=== PATIENT | female | born 1940 | race Caucasian/White ===

== ENCOUNTER 2016-11-23 16:18 | Inpatient (IN) | payer OTHER ==
[~2016-11-23] VITALS: Ht 157.5 cm; Wt 102.5 kg
[~2016-11-23 16:18] MED LIST: ADVIN25050 INH; ATV1HP PO; CHOL100010 PO; DICL1SOL6 TOP; DIPH25CA37 PO; IPRA1AER2 INH; LTRCR45 TOP; MELA1CAP9 PO; NRV5 PO; NZRSHM TOP; SNG10 PO; ULT50HP PO
[2016-11-23] MEDS ORDERED: METHYLPREDNISOLONE 125 MG VIAL IV STA (16:41)
[2016-11-23] MEDS ORDERED: ALBUT/IPRATROP 3MG/0.5MG NEB 3 ML VIAL INH ONE (16:45)
--- NOTE | 2016-11-23 17:09 | DIAGNOSTIC IMAGING REPORT ---
CHEST ONE VIEW PORTABLE CLINICAL HISTORY: EVALUATE RESPIRATORY DISTRESS. DYSPNEA dyspnea COMPARISON STUDY: 10/18/2014 FINDINGS: Mild stable cardiomegaly. Lungs are clear. Diaphragms smooth. Costophrenic angles are sharp. IMPRESSION: Chronic change. No acute process. Electronically signed by: Travis Weeks M.D. 11/23/2016 5:07 PM Dictated Date/Time: 11/23/2016 5:06 PM
[2016-11-23 17:12] LABS: BASO % 0.1 %; BASO ABS # 0.01 K/uL (0-0.2); COMPLETE YES; EOS % 0.9 %; HEMATOCRIT 31.4 % (37-47); IG% 0.2 %; LYMPH % 12.1 %; LYMPH ABS # 1.15 K/uL (1.2-3.4); MEAN CELL VOLUME 105.4 fL (80-100); MEAN CORPUSCULAR HEMOGLOBIN 31.5 pg (25-34); MEAN CORPUSCULAR HGB CONC 29.9 g/dl (32-36); MEAN PLATELET VOLUME 10.2 fL (7.4-10.4); MONO % 7.2 %; NEUT % 79.5 %; PLATELET COUNT 147 K/uL (130-400); RED BLOOD COUNT 2.98 M/uL (4.2-5.4); WHITE BLOOD COUNT 9.52 K/uL (4.8-10.8)
[2016-11-23 17:13] VITALS: PULSE 91; O2SAT 96
[2016-11-23 17:20] LABS: POINT OF CARE TROPONIN I 0.02 ng/ml (0-0.045)
[2016-11-23 17:33] LABS: VEN BLD GAS O2 SATURATION 66.8 %
[2016-11-23 17:52] LABS: ALT/SGPT 12 U/L (12-78); BLOOD UREA NITROGEN 83 mg/dl (7-18); BUN/CREATININE RATIO 27.6 (10-20); CALCIUM 9.3 mg/dl (8.5-10.1); CARBON DIOXIDE 40 mmol/L (21-32); CHLORIDE 92 mmol/L (98-107); GLUCOSE 115 mg/dl (70-99); POTASSIUM 4.4 mmol/L (3.5-5.1); SODIUM 137 mmol/L (136-145)
[2016-11-23 17:57] LABS: ALKALINE PHOSPHATASE 128 U/L (45-117); AST/SGOT 10 U/L (15-37)
[2016-11-23] MEDS ORDERED: IPRASOL4 INH (17:59)
[2016-11-23] MEDS ORDERED: TRAZ50TA35 PO (17:59)
[2016-11-23] MEDS ORDERED: CRG625 PO (17:59)
[2016-11-23] MEDS ORDERED: METO2.5T PO (17:59)
[2016-11-23] MEDS ORDERED: FRS/40 PO (17:59)
[2016-11-23] MEDS ORDERED: OXGN (17:59)
[2016-11-23] MEDS ORDERED: MENTOIN TOP (18:21)
[2016-11-23 19:08] VITALS: Ht 157.5 cm; Wt 102.5 kg
[2016-11-23] MEDS ORDERED: SODIUM CHLORIDE 0.9% 1000ML 1,000 ML IV SCH (20:05)
[2016-11-23] MEDS ORDERED: ONDANSETRON INJ 2 MG/ML 2 ML VIAL IV PRN (20:15)
[2016-11-23 20:53] LABS: PROTHROMBIN TIME (PATIENT) 10.6 SECONDS (9.0-12.0)
--- NOTE | 2016-11-23 21:44 | History and Physical ---
History & Physical Date & Time of Service: Nov 23, 2016 at 21:24 Chief Complaint: Shortness of Breath Primary Care Physician: Christine Ward M.D. History of Present Illness 76 year old female who presents to the ER by referral of her PCP for shortness of breath and hypoxia. Patient does not provide much history. She recently has had increasing shortness of breath. Today she was at her PCP's office who found her oxygen levels to be 71% on her chronic 3L. She was then referred to the ER for further evaluation. Patient denies cough or sputum production. No fever or chills. She denies chest pain or palpitations. No lightheadedness, dizziness, diaphoresis, or syncopal events. No abdominal pain, nausea, vomiting, or diarrhea. She denies urinary symptoms. In the ER, patient was 64% on 3L which improved after nebulizer, solumedrol, and increasing oxygen to 6L. She refused ABG but VBG showed pH 7.24 and CO2 100. She is also refusing BiPap. Throughout my exam, patient is alert and awake and persistently asking for food. Past Medical/Surgical History Medical Problems: (1) Anemia due to chronic kidney disease Status: Chronic (2) Aortic stenosis Status: Chronic (3) CKD (chronic kidney disease), stage IV Status: Chronic (4) COPD (chronic obstructive pulmonary disease) Status: Chronic (5) Depression with anxiety Status: Chronic (6) Diastolic CHF Status: Chronic (7) Dyslipidemia Status: Chronic (8) GERD (gastroesophageal reflux disease) Status: Chronic (9) HTN (hypertension) Status: Chronic (10) Hypothyroidism Status: Chronic (11) Osteoarthritis Status: Chronic (12) Respiratory failure with hypoxia Status: Chronic Surgical Problems: (1) History of appendectomy Status: Chronic (2) History of hysterectomy Status: Chronic (3) Hx of cholecystectomy Status: Chronic (4) Hx of tonsillectomy Status: Chronic (5) S/P gastric bypass Status: Chronic Family History FH: breast cancer MOTHER Social History Smoking Status: Former Smoker Alcohol Use: none Marital Status: Immunizations History of Influenza Vaccine: Yes Influenza Vaccine Date: May 16, 2015 History of Pneumococcal: Yes Pneumococcal Date: Apr 15, 2016 Multi-Drug Resistant Organisms History of MDRO: No Allergies Coded Allergies: Ampicillin (Unverified Allergy, Unknown, ITCHING, 11/23/16) Latex1 -Allergic Contact Dermititis (Unverified Allergy, Unknown, ITCHING , 11/23/16) Home Medications Scheduled Amlodipine Besylate (Amlodipine Besylate), 10 MG PO QAM Budesonide/Formoterol Fumarate (Symbicort 80-4.5 Mcg/Act), 2 PUFFS INH BID Cholecalciferol (Vitamin D3), 5,000 UNIT PO QAM Citalopram Hydrobromide (Celexa), 20 MG PO DAILY Cyanocobalamin (Vitamin B12), 1,000 MCG PO DAILY Ferrous Sulfate (Iron), 325 MG PO DAILY Furosemide (Furosemide), 40 MG PO QAM Hydralazine Hcl (Apresoline), 25 MG PO BID Isosorbide Mononitrate (Isosorbide Mononitrate ER), 30 MG PO DAILY Levofloxacin (Levofloxacin), 250 MG PO DAILY@11 Multivitamin (Multivitamin), 1 TAB PO DAILY Omeprazole (Prilosec), 20 MG PO DAILY Oxygen (Oxygen), 3 LITERS NA CONTINOUS Prednisone (Prednisone), 10 MG PO UD Trazodone Hcl (Trazodone), 50 MG PO HS Scheduled PRN Ipratropium-Albuterol (Duoneb), 1 TREATMENT INH Q4H PRN for SOB/Wheezing Menthol-Zinc Oxide (Calmoseptine), 1 APPLN TOP DAILY PRN for PRN Review of Systems 10 point review of systems was completed with the pertinent positives and negatives noted per the HPI Physical Exam Vital Signs Date Time Temp Pulse Resp B/P Pulse Ox O2 Delivery O2 Flow Rate FiO2 11/23/16 19:46 42 18 147/47 100 Nasal Cannula 6.0 11/23/16 19:08 Nasal Cannula 3.0 11/23/16 18:30 41 24 168/49 100 Nasal Cannula 6.0 11/23/16 17:43 38 23 194/72 100 Nasal Cannula 6.0 11/23/16 17:13 91 18 96 Nasal Cannula 3.0 11/23/16 16:51 100 Nasal Cannula 6.0 11/23/16 16:51 100 Nasal Cannula 6.0 11/23/16 16:50 24 100 Nasal Cannula 6.0 11/23/16 16:45 41 11/23/16 16:28 Nasal Cannula 6.0 11/23/16 16:28 37.1 44 24 64 Nasal Cannula 3.0 General Appearance: no apparent distress Head: normocephalic Eyes: normal inspection ENT: hearing grossly normal Neck: supple, no JVD Respiratory/Chest: no respiratory distress, + decreased breath sounds (poor air movement BL), + crackles (BL bases) Cardiovascular: + bradycardia (HR in the 40s), + pertinent finding (trace edema BLLE) Abdomen/GI: normal bowel sounds, non tender, soft Extremities/Musculoskelatal: normal inspection, no calf tenderness Neurologic/Psych: no motor/sensory deficits, alert, normal mood/affect, oriented x 3 Skin: normal color, warm/dry Diagnostics Laboratory Results Results Past 24 Hours Test 11/23/16 16:50 11/23/16 16:58 11/23/16 16:59 11/23/16 17:16 Range/Units White Blood Count 9.52 4.8-10.8 K/uL Red Blood Count 2.98 4.2-5.4 M/uL Hemoglobin 9.4 12.0-16.0 g/dL Hematocrit 31.4 37-47 % Mean Corpuscular Volume 105.4 80-100 fL Mean Corpuscular Hemoglobin 31.5 25-34 pg Mean Corpuscular Hemoglobin Concent 29.9 32-36 g/dl Platelet Count 147 130-400 K/uL Mean Platelet Volume 10.2 7.4-10.4 fL Neutrophils (%) (Auto) 79.5 % Lymphocytes (%) (Auto) 12.1 % Monocytes (%) (Auto) 7.2 % Eosinophils (%) (Auto) 0.9 % Basophils (%) (Auto) 0.1 % Neutrophils # (Auto) 7.56 1.4-6.5 K/uL Lymphocytes # (Auto) 1.15 1.2-3.4 K/uL Monocytes # (Auto) 0.69 0.11-0.59 K/uL Eosinophils # (Auto) 0.09 0-0.5 K/uL Basophils # (Auto) 0.01 0-0.2 K/uL RDW Standard Deviation 49.1 36.4-46.3 fL RDW Coefficient of Variation 12.8 11.5-14.5 % Immature Granulocyte % (Auto) 0.2 % Immature Granulocyte # (Auto) 0.02 0.00-0.02 K/uL Prothrombin Time 10.6 9.0-12.0 SECONDS Prothromb Time International Ratio 1.0 0.9-1.1 Activated Partial Thromboplast Time 26.5 21.0-31.0 SECONDS Partial Thromboplastin Ratio 1.0 Sodium Level 137 136-145 mmol/L Potassium Level 4.4 3.5-5.1 mmol/L Chloride Level 92 98-107 mmol/L Carbon Dioxide Level 40 21-32 mmol/L Anion Gap 5.0 3-11 mmol/L Blood Urea Nitrogen 83 7-18 mg/dl Creatinine 3.00 0.60-1.20 mg/dl Est Creatinine Clear Calc Drug Dose 19.4 ml/min Estimated GFR () 17.0 Estimated GFR (Non- 14.7 BUN/Creatinine Ratio 27.6 10-20 Random Glucose 115 70-99 mg/dl Calcium Level 9.3 8.5-10.1 mg/dl Total Bilirubin 0.3 0.2-1 mg/dl Aspartate Amino Transf (AST/SGOT) 10 15-37 U/L Alanine Aminotransferase (ALT/SGPT) 12 12-78 U/L Alkaline Phosphatase 128 45-117 U/L Total Creatine Kinase 23 26-192 U/L Creatine Kinase MB < 0.5 0.5-3.6 ng/ml Creatine Kinase MB Ratio 0-3.0 Total Protein 7.5 6.4-8.2 gm/dl Albumin 3.7 3.4-5.0 gm/dl Globulin 3.8 2.5-4.0 gm/dl Albumin/Globulin Ratio 1.0 0.9-2 Bedside Lactic Acid Venous 0.71 0.90-1.70 mmol/L Bedside Troponin I 0.020 0-0.045 ng/ml PO-Aih-E-Type Natriuretic Peptide 2594 0-900 pg/ml Venous Blood pH 7.24 7.36-7.41 Venous Blood Partial Pressure CO2 100 38.0-50.0 mmHg Venous Blood Partial Pressure O2 38 mmHg Venous Blood HCO3 42 mmol/L Venous Blood Oxygen Saturation 66.8 % Venous Blood Base Excess 12.0 mmol/L Microbiology Results 11/23/16 Blood Culture, Received Pending 11/23/16 Blood Culture, Received Pending 11/23/16 Urine Culture, Received Pending Diagnostic Radiology CXR IMPRESSION: Chronic change. No acute process. Impression Assessment and Plan ACUTE ON CHRONIC HYPERCAPNIC, HYPOXIC RESPIRATORY FAILURE DUE TO COPD EXACERBATION - admit to tele - patient does not provide much history but is presenting with increasing shortness of breath and found to be hypoxic at her PCPs office - in the ER, patient 64% on chronic 3L; improved after IV solumedrol, neb treatment, and increasing O2 to 6L - VBG showed CO2 100, pH 7.24 - patient refusing ABG and BiPap - explained to patient that her pulmonary status could worsen without these treatments and she reports she understands and is adamant about refusing BiPap and ABG - continue with IV steroids, around the clock nebs, and empiric doxycycline - pulmonary consult, input appreciated - could consider PE if patient does not improve with above treatments - currently no tachycardia or chest pain LUIS ON CKD STAGE IV - likely prerenal - baseline creat ~ 2.2 - up to 3.0 today - will give gentle IVF, hold diuretics - nephro consult, input appreciated BRADYCARDIA - outpatient records show baseline HR 40s-60s - monitor in tele - hold beta ananya HTN - BP controlled, continue isosorbide and amlodipine - holding beta ananya due to bradycardia DIASTOLIC CHF, AORTIC STENOSIS - may be on the dry side with LUIS - holing diuretics - echo 09/2015 - moderate , mild MR and TR DVT PROPHYLAXIS - SQ Heparin CODE STATUS - Patient is a DNR as per my discussion with her and her who are the bedside. DISPO - In my clinical judgment this beneficiary meets acute admission criteria, established by [facility], that includes being hospitalized through two midnights. ATTENDING NOTE pt seen and examined , in agreement with H&P by Shante HERNANDEZ 76 yo f with base line advanced COPD on 3 L home 02 presents with worsening of SOB /SERNA COPD exacerbation IV Solu Medrol , Neb tx Pt is refusing Bipap Pulmonology eval requested Yoli Castillo MD Advanced Directives Existing Living Will: Yes Existing Power of Hooker Operator: Yes VTE Prophylaxis VTE Risk Assessment Done? Y/N: Yes Risk Level: Moderate
[2016-11-23 22:37] VITALS: BP 197/69; PULSE 50; TEMP 37.1; O2SAT 98
[2016-11-23] MEDS: ALBUT/IPRATROP 3MG/0.5MG NEB 3 ML VIAL INH SCH (22:39)
[2016-11-23] MEDS: DOXYCYCLINE IV 100 MG in DEXTROSE 5% 100ML 100 ML IV SCH (23:23)
[2016-11-23] MEDS: METHYLPREDNISOLONE IV 40 MG in SYRINGE 0 ML IV SCH (23:23)
--- NOTE | 2016-11-23 23:30 | EMERGENCY ROOM VISIT NOTE ---
History Report prepared by Marvin: Boyd Price Under the Supervision of: Dr. Elijah Arredondo M.D. First contact with patient: 16:30 Chief Complaint: SHORTNESS OF BREATH Stated Complaint: SOB History of Present Illness The patient is a 76 year old female who presents to the Emergency Room with complaints of worsening shortness of breath beginning a few weeks prior to arrival. As per EMS, the patient was at her nephrology appointment for her state 4 kidney disease, where the patient had an oxygen stat of 71% on 3L. The patient states she wears 3 L of oxygen at all times, and she was not feeling any worse today. As per the doctor's note from her appointment earlier today, the patient has become more short of breath over the last few weeks. Acute on chronic respiratory failure with hypercapnia was a concern according to the note , and the patient's heart rate was in the 40s. It is noted the patient has COPD and hypertension. As per , the patient has been "slowing down" over the past few weeks. Pt denies LOC, headache, fevers, chills, diaphoresis, visual changes, neck pain, chest pain, nausea, vomiting, abdominal pain, back pain, melena, hematochezia, urinary symptoms, numbness, weakness, swelling in the legs , lymphadenopathy, rash, or other complaints. The history is limited secondary to the patient's mild confusion. Source of History: patient History Limited By: other (mild confusion) Onset: few weeks CLINICAL RECRUITER Position: other (global) Quality: other (SOB) Timing: worsening Associated Symptoms: + SOB Review of Systems See HPI for pertinent positives and negatives. A total of ten systems were reviewed and were otherwise negative. However, it is somewhat limited secondary to the patient's apparent mild confusion. Past Medical & Surgical Medical Problems: (1) Anemia due to chronic kidney disease (2) Aortic stenosis (3) CKD (chronic kidney disease), stage IV (4) COPD (chronic obstructive pulmonary disease) (5) Depression with anxiety (6) Diastolic CHF (7) Dyslipidemia (8) GERD (gastroesophageal reflux disease) (9) HTN (hypertension) (10) Hypothyroidism (11) Osteoarthritis (12) Respiratory failure with hypoxia Surgical Problems: (1) History of appendectomy (2) History of hysterectomy (3) Hx of cholecystectomy (4) Hx of tonsillectomy (5) S/P gastric bypass Family History No pertinent family history Social History Smoking Status: Former Smoker Alcohol Use: none Drug Use: none Marital Status: Housing Status: lives with family Occupation Status: retired Current/Historical Medications Scheduled Amlodipine Besylate (Amlodipine Besylate), 10 MG PO QAM Carvedilol (Carvedilol), 6.25 MG PO BIDM Cholecalciferol (Vitamin D3), 5,000 UNIT PO QAM Citalopram Hydrobromide (Celexa), 20 MG PO DAILY Cyanocobalamin (Vitamin B12), 1,000 MCG PO DAILY Ferrous Sulfate (Iron), 325 MG PO DAILY Furosemide (Lasix), 40 MG PO BID Isosorbide Mononitrate (Isosorbide Mononitrate ER), 30 MG PO DAILY Metolazone (Zaroxolyn), 2.5 MG PO DAILY Montelukast Sod (Montelukast Sodium), 10 MG PO DAILY Multivitamin (Multivitamin), 1 TAB PO DAILY Omeprazole (Prilosec), 20 MG PO DAILY Oxygen (Oxygen), 3 LITERS NA PRN Trazodone Hcl (Trazodone), 50 MG PO HS Scheduled PRN Ipratropium-Albuterol (Duoneb), 1 TREATMENT INH Q4H PRN for SOB/Wheezing Menthol-Zinc Oxide (Calmoseptine), 1 APPLN TOP DAILY PRN for PRN Allergies Coded Allergies: Ampicillin (Unverified Allergy, Unknown, ITCHING, 11/23/16) Latex1 -Allergic Contact Dermititis (Unverified Allergy, Unknown, ITCHING , 11/23/16) Physical Exam Vital Signs Date Time Temp Pulse Resp B/P Pulse Ox O2 Delivery O2 Flow Rate FiO2 11/23/16 20:00 164/62 11/23/16 19:48 41 17 98 11/23/16 19:46 42 18 147/47 100 Nasal Cannula 6.0 11/23/16 19:41 147/47 11/23/16 19:18 44 18 98 11/23/16 19:08 Nasal Cannula 3.0 11/23/16 18:48 45 25 11/23/16 18:30 168/49 11/23/16 18:30 41 24 168/49 100 Nasal Cannula 6.0 11/23/16 18:18 39 18 11/23/16 18:01 161/61 11/23/16 17:48 43 28 100 11/23/16 17:43 194/72 11/23/16 17:43 38 23 194/72 100 Nasal Cannula 6.0 11/23/16 17:18 41 18 100 11/23/16 17:13 91 18 96 Nasal Cannula 3.0 11/23/16 16:51 100 Nasal Cannula 6.0 11/23/16 16:51 100 Nasal Cannula 6.0 11/23/16 16:50 24 100 Nasal Cannula 6.0 11/23/16 16:48 44 24 100 11/23/16 16:45 41 11/23/16 16:30 177/69 11/23/16 16:28 Nasal Cannula 6.0 11/23/16 16:28 37.1 44 24 64 Nasal Cannula 3.0 Physical Exam GENERAL: Awake, mildly confused, mildly dyspneic-appearing HENT: Normocephalic, atraumatic. Oropharynx unremarkable. EYES: Normal conjunctiva. Sclera non-icteric. NECK: Supple. No nuchal rigidity. FROM. No JVD. RESPIRATORY: Mildly tachypneic. Decreased breath sounds bilaterally. Mildly dyspneic. CARDIAC: Regular rate, normal rhythm. Extremities warm and well perfused. Pulses equal. ABDOMEN: Soft, non-distended. No tenderness to palpation. No rebound or guarding. No masses. RECTAL: Deferred. MUSCULOSKELETAL: Chest examination reveals no tenderness. The back is symmetrical on inspection without obvious abnormality. There is no CVA tenderness to palpation. No joint edema. LOWER EXTREMITIES: Calves are equal size bilaterally and non-tender. No edema. No discoloration. NEURO: Mildly confused. No sensory or motor deficits noted. SKIN: No rash or jaundice noted. Medical Decision & Procedures ER Provider Diagnostic Interpretation: X-ray: Per my interpretation, radiologist review. CHEST ONE VIEW PORTABLE CLINICAL HISTORY: EVALUATE RESPIRATORY DISTRESS. DYSPNEA dyspnea COMPARISON STUDY: 10/18/2014 FINDINGS: Mild stable cardiomegaly. Lungs are clear. Diaphragms smooth. Costophrenic angles are sharp. IMPRESSION: Chronic change. No acute process. Electronically signed by: Travis Weeks M.D. 11/23/2016 5:07 PM Laboratory Results 11/23/16 16:50 Red Blood Count 2.98, Mean Corpuscular Volume 105.4, Mean Corpuscular Hemoglobin 31.5, Mean Corpuscular Hemoglobin Concent 29.9, Mean Platelet Volume 10.2, Neutrophils (%) (Auto) 79.5, Lymphocytes (%) (Auto) 12.1, Monocytes (%) ( Auto) 7.2, Eosinophils (%) (Auto) 0.9, Basophils (%) (Auto) 0.1, Neutrophils # ( Auto) 7.56, Lymphocytes # (Auto) 1.15, Monocytes # (Auto) 0.69, Eosinophils # ( Auto) 0.09, Basophils # (Auto) 0.01 11/23/16 16:50 Test 11/23/16 16:50 11/23/16 16:58 11/23/16 16:59 11/23/16 17:16 White Blood Count 9.52 K/uL (4.8-10.8) Red Blood Count 2.98 M/uL (4.2-5.4) Hemoglobin 9.4 g/dL (12.0-16.0) Hematocrit 31.4 % (37-47) Mean Corpuscular Volume 105.4 fL (80-100) Mean Corpuscular Hemoglobin 31.5 pg (25-34) Mean Corpuscular Hemoglobin Concent 29.9 g/dl (32-36) Platelet Count 147 K/uL (130-400) Mean Platelet Volume 10.2 fL (7.4-10.4) Neutrophils (%) (Auto) 79.5 % Lymphocytes (%) (Auto) 12.1 % Monocytes (%) (Auto) 7.2 % Eosinophils (%) (Auto) 0.9 % Basophils (%) (Auto) 0.1 % Neutrophils # (Auto) 7.56 K/uL (1.4-6.5) Lymphocytes # (Auto) 1.15 K/uL (1.2-3.4) Monocytes # (Auto) 0.69 K/uL (0.11-0.59) Eosinophils # (Auto) 0.09 K/uL (0-0.5) Basophils # (Auto) 0.01 K/uL (0-0.2) RDW Standard Deviation 49.1 fL (36.4-46.3) RDW Coefficient of Variation 12.8 % (11.5-14.5) Immature Granulocyte % (Auto) 0.2 % Immature Granulocyte # (Auto) 0.02 K/uL (0.00-0.02) Prothrombin Time 10.6 SECONDS (9.0-12.0) Prothromb Time International Ratio 1.0 (0.9-1.1) Activated Partial Thromboplast Time 26.5 SECONDS (21.0-31.0) Partial Thromboplastin Ratio 1.0 Anion Gap 5.0 mmol/L (3-11) Est Creatinine Clear Calc Drug Dose 19.4 ml/min Estimated GFR () 17.0 Estimated GFR (Non- 14.7 BUN/Creatinine Ratio 27.6 (10-20) Calcium Level 9.3 mg/dl (8.5-10.1) Total Bilirubin 0.3 mg/dl (0.2-1) Aspartate Amino Transf (AST/SGOT) 10 U/L (15-37) Alanine Aminotransferase (ALT/SGPT) 12 U/L (12-78) Alkaline Phosphatase 128 U/L (45-117) Total Creatine Kinase 23 U/L (26-192) Creatine Kinase MB < 0.5 ng/ml (0.5-3.6) Creatine Kinase MB Ratio (0-3.0) Total Protein 7.5 gm/dl (6.4-8.2) Albumin 3.7 gm/dl (3.4-5.0) Globulin 3.8 gm/dl (2.5-4.0) Albumin/Globulin Ratio 1.0 (0.9-2) Bedside Lactic Acid Venous 0.71 mmol/L (0.90-1.70) Bedside Troponin I 0.020 ng/ml (0-0.045) DL-Obi-P-Type Natriuretic Peptide 2594 pg/ml (0-900) Venous Blood pH 7.24 (7.36-7.41) Venous Blood Partial Pressure CO2 100 mmHg (38.0-50.0) Venous Blood Partial Pressure O2 38 mmHg Venous Blood HCO3 42 mmol/L Venous Blood Oxygen Saturation 66.8 % Venous Blood Base Excess 12.0 mmol/L Laboratory results reviewed by me Medications Administered Medications (Trade) Dose Ordered Sig/Pieter Route Start Time Stop Time Status Last Admin Dose Admin Albuterol/ Ipratropium (Duoneb) 12 ml ONE ONCE INH 11/23/16 16:45 11/23/16 16:46 DC 11/23/16 17:13 12 ML Methylprednisolone Sodium Succinate 125 mg 125 mg NOW STAT IV 11/23/16 16:41 11/23/16 16:44 DC 11/23/16 16:41 125 MG Sodium Chloride (Nss 1000ml) 1,000 ml @ 80 mls/hr [id number] IV 11/23/16 20:05 12/23/16 20:04 11/23/16 23:22 80 MLS/HR ECG Indication: SOB/dyspnea Rate (beats per minute): 42 Rhythm: sinus bradycardia Findings: no acute ischemic change, no ectopy ED Course 163: The patient was evaluated in room B11A. A complete history and physical exam was performed. 1640: Ordered Solu-Medrol IV 125 mg IV. 1644: Ordered Duoneb 12 ml INH. 1818: Reevaluated the patient at this time and the [facility] service was paged for admission. 1914: I spoke to DAVID Vidal ([facility]) about the patient's case, and she will follow the patient for further evaluation. Medical Decision Triage Nursing notes reviewed. The patient's presentation and history were concerning for shortness of breath. Etiologies such as pneumonia, COPD, reactive airway disease, CHF, cardiac ischemia, pulmonary embolism, pneumothorax, musculoskeletal, infections, gastrointestinal, as well as others were entertained. The patient was evaluated. She was having increased work of breathing. X-ray, blood work, and urinalysis were performed. ECG did not reveal any acute findings. Chest x-ray did not reveal any evidence of pneumonia or pneumothorax. The patient had a mild anemia on CBC. Her chemistry panel revealed a creatinine of 3. BNP was elevated over 2500. Lactate was negative as well as troponin. A VBG did reveal significant elevation of her CO2 at 100. The patient did refuse ABG. Due to the increased work of breathing and the hypercarbia the patient was started on BiPAP. I did inform the patient and . Consultation was made with internal medicine. The patient was evaluated in the Emergency Room for further treatment. The chart was completed utilizing [employer] voice recognition software. Grammatical errors, random word insertions, pronoun errors, and incomplete sentences are an occasional consequence of this system due to software limitations, ambient noise, and hardware issues. Any formal questions or concerns about the content, text, or information contained within the body of this dictation should be directly addressed to the physician for clarification. Consults Time Called: 1909 Consulting Physician: DAVID Vidal ([facility]) Returned Call: 1914 I spoke to DAVID Vidal ([facility]) about the patient's case, and she will follow the patient for further evaluation. Impression Primary Impression: Acute respiratory failure with hypoxia Scribe Attestation The scribe's documentation has been prepared under my direction and personally reviewed by me in its entirety. I confirm that the note above accurately reflects all work, treatment, procedures, and medical decision making performed by me. Departure Information Dispostion Being Evaluated By Hospitalist (DAVID Vidal ([facility])) Referrals No Doctor, Assigned (PCP)
[2016-11-23] MEDS: MONTELUKAST SOD 10 MG TAB PO SCH (23:33)
[2016-11-23] MEDS: HEPARIN SOD 5000 UNIT/0.5 ML CARP SQ SCH (23:35)
[2016-11-23 23:59] VITALS: O2SAT 98
[2016-11-24] VITALS (15 sets, daily range): BP systolic 148–180; BP diastolic 51–66; PULSE 46–72; TEMP 36.7–37.3; O2SAT 95–98
[2016-11-24] MEDS: ACETAMINOPHEN 325 MG TAB PO PRN ×2 (01:32→23:52)
[2016-11-24 01:51] LABS: URINE APPEARANCE CLEAR (CLEAR); URINE BILIRUBIN NEG (NEG); URINE COLOR YELLOW; URINE EPITHELIAL CELL AUTO 20-30 /lpf (0-5); URINE NITRITE POS (NEG); URINE SPECIFIC GRAVITY 1.012 (1.000-1.030); UROBILINOGEN NEG (NEG)
[2016-11-24 01:54] LABS: MANUAL MICROSCOPIC REQUIRED? NO; REVIEW REQ? NO
[2016-11-24] MEDS: ALBUT/IPRATROP 3MG/0.5MG NEB 3 ML VIAL INH SCH ×6 (02:02→19:18)
[2016-11-24] MEDS: HEPARIN SOD 5000 UNIT/0.5 ML CARP SQ SCH ×3 (05:56→21:30)
[2016-11-24] MEDS: METHYLPREDNISOLONE IV 40 MG in SYRINGE 0 ML IV SCH ×3 (06:11→23:54)
[2016-11-24 06:20] LABS: ESTIMATED AVERAGE GLUCOSE 114 mg/dl; HA1C FLAG Normal (Normal)
[2016-11-24 06:49] LABS: MEAN CELL VOLUME 102.4 fL (80-100); MEAN CORPUSCULAR HEMOGLOBIN 31.4 pg (25-34); MEAN CORPUSCULAR HGB CONC 30.7 g/dl (32-36); MEAN PLATELET VOLUME 9.5 fL (7.4-10.4); PLATELET COUNT 123 K/uL (130-400); RED BLOOD COUNT 2.93 M/uL (4.2-5.4); WHITE BLOOD COUNT 5.15 K/uL (4.8-10.8)
[2016-11-24 06:53] LABS: ARTERIAL BLD GAS O2 SATURATION 92.5 % (90-95); ARTERIAL BLOOD GAS BASE EXCESS 10.7 mEq/L (-9-1.8); ARTERIAL BLOOD GAS HCO3 39 mmol/L (19-24); ARTERIAL BLOOD GAS PO2 80 mm/Hg (80-95); ARTERIAL BLOOD GAS pH 7.31 (7.35-7.45)
[2016-11-24 07:07] LABS: BUN/CREATININE RATIO 30.5 (10-20); CALCIUM 9.1 mg/dl (8.5-10.1); POTASSIUM 4.3 mmol/L (3.5-5.1)
--- NOTE | 2016-11-24 07:48 | PULMONARY CONSULTATION ---
DATE OF CONSULTATION: 11/24/2016 HISTORY OF PRESENT ILLNESS: The patient is a 76-year-old female with known respiratory failure with profound hypercapnia and end-stage chronic obstructive lung disease. She is followed by Dr. Christine Ward from [place] and was admitted to the hospital through the Emergency Room with respiratory failure. DAVID Vidal has asked me to evaluate the patient from a pulmonary standpoint. The patient is comfortable at the present time and has refused BiPAP throughout the night. Nurses and respiratory therapist have spoken with her and she has refused. She apparently presented to the Emergency Room after having a nephrology appointment for a stage IV kidney disease. She was noted to have an oxygen saturation of 71% on 3 liters. She states she has had a cough, which was productive of clear sputum and mild shortness of breath with exertion, does not really do very much at home. She mostly sits at home. She occasional walk with a walker, but it is very minimal. She has had some mild confusion as well and this is consistent with her last admission when she was evaluated by Dr. Cho with profound hypercapnia. She was initially seen by Dr. Elijah Arredondo in the Emergency Room and was found to be hypercapnic, oxygen saturation 64% on 3 liters. On 6 liters, it was 100%. Blood pressure was 177/69, respiratory rate was 24, initially went up to 28 at 1748 hours yesterday. Chest film showed some chronic changes with hyperinflation and mild cardiomegaly. Venous blood gas revealed a pCO2 of 100 with a pH of 7.24 suggesting acute on chronic respiratory failure with profound hypercapnia and partially compensated respiratory acidosis. EKG showed sinus bradycardia. She was given IV Solu-Medrol, DuoNeb treatment and placed on BiPAP, but she refused. Presently, the patient is comfortable. She denies any exposures, not had any aspiration, is very limited at home with her activity, does walk with a walker. PAST MEDICAL HISTORY: Well outlined and includes aortic stenosis; chronic kidney disease, stage IV; end-stage COPD with chronic hypercapnia; depression; obesity; diastolic heart failure; GERD, which is under good control. Hypertension is under good control as well. She has a history of osteoarthritis and hypothyroidism. PAST SURGICAL HISTORY: Cholecystectomy for chronic cholelithiasis. Hysterectomy for dysfunctional uterine bleeding, appendectomy, tonsillectomy and she has had some gastric bypass surgery in the past. FAMILY HISTORY: Unknown. According to records, there is a family history of breast cancer from her mother's side. When I reviewed her other records, she had been evaluated by Dr. Charlton in October of 2014. Nothing else is noted in that record either. SOCIAL HISTORY: She has about a [id number] history of cigarette smoking. She states she quit about 10 years ago. She denies any alcohol use. 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 ALLERGIES: AMPICILLIN AND LATEX. MEDICATIONS: She states she does use her inhalers at home and is on oxygen at 2-3 liters per minute, could not really tell me the inhalers that she was using. Again, she has refused BiPAP. PHYSICAL EXAMINATION: GENERAL: Blood pressure 174/58, respiratory rate is 20, pulse is 50 and regular, oxygen saturation 97% on 2 liters and she is afebrile. Her weight is 102 kilograms. During her last hospitalization here several years ago on 10/2014, she was 120 kilograms. So, she has had about a 40-pound weight loss since that time. HEENT: Reveals no facial asymmetry. There is no evidence of upper airway obstruction. She has a large tongue a small posterior pharynx. No adenopathy is noted. There is no neck vein distention or HJR. Carotid upstroke was good. No bruits auscultated. I could not palpate the thyroid. She does have truncal obesity. HEART: Regular rate and rhythm, 2/6 harsh mid-to-late systolic murmur, heard at the apex, radiating underneath the right clavicle. No diastolic murmurs or gallops are auscultated. LUNGS: Reveal decreased breath sounds bilaterally. Forced expiratory maneuver are about 4 seconds, but she stopped exhalation. I think it probably is more prolonged than that. No fremitus is noted. There is no dullness to percussion. No wheezing was noted. ABDOMEN: Soft and obese, nontender. Liver and spleen are normal. Femoral pulses are normal. EXTREMITIES: She has no cyanosis, clubbing or edema. Chest x-ray revealed cardiomegaly. LABORATORY DATA: Venous blood gas revealed pH 7.24, pCO2 of 100, pO2 of 38, oxygen saturation of 67%. CO2 is 40 on the electrolytes, BUN is 83, creatinine 3, alkaline phosphatase is elevated at 128. BNP is elevated at 2594. Urinalysis revealed 10-30 inflammatory cells with +2 bacteria. Coagulation profile was unremarkable. ASSESSMENT AND PLAN: 1. Respiratory failure. This is acute on chronic respiratory failure, most certainly related to chronic obstructive lung disease. I did not detect any muscle weakness on her exam today. 2. Chronic obstructive pulmonary disease with exacerbation. 3. Stage IV chronic kidney disease. 4. Aortic stenosis. RECOMMENDATIONS: 1. At this point, I had a long talk with the patient as well and she is refusing BiPAP, stating that she just does not want to wear it, but no other reason. 2. Continue on the methylprednisolone I think 40 mg IV q. 8 hours certainly is enough for her with good glucose control. 3. Continue on good DVT prophylaxis with heparin and SCDs. 4. At this point, I think the Singulair could be discontinued. 5. I would add on DuoNeb 4 times a day and q. 4 hours p.r.n. and a long-acting bronchodilator such as Symbicort 160/4.5 two puffs b.i.d. We will need to follow her CO2 on the electrolytes as well. Nephrology evaluation with continued followup with abnormal BUN and creatinine will be helpful. Also, suggest rechecking an echocardiogram if one has not been done in the last several years. Thanks for asking me to evaluate Ms. Hill and I will be glad to follow along with you during her hospital stay. It should be noted that she did have few inflammatory cells in the urine. We will see what the culture looks like on doxycycline.
[2016-11-24 08:08] LABS: ALLEN TEST POS (POS); O2 ADMINISTRATION 2L
[2016-11-24] MEDS: BUDESONIDE/FORMOTEROL FUMARATE 80/4.5 60 PUFFS/INHALER INH SCH ×2 (08:33→20:45)
[2016-11-24] MEDS: CITALOPRAM 20 MG TAB PO SCH (08:33)
[2016-11-24] MEDS: ISOSORBIDE MONONITRATE 30 MG TABCR PO SCH (08:34)
[2016-11-24] MEDS: PANTOprazole SOD 40 MG TAB PO SCH (08:34)
[2016-11-24] MEDS: MULTIVITAMIN TAB PO SCH (08:34)
[2016-11-24] MEDS: FERROUS SULFATE 325 MG TAB PO SCH (08:34)
[2016-11-24] MEDS: AMLODIPINE BESYLATE 5 MG TAB PO SCH (08:34)
[2016-11-24] MEDS: CYANOCOBALAMIN 500 MCG TAB (VIT B-12) PO SCH (08:35)
[2016-11-24] MEDS: CHOLECALCIFEROL 1000 INTER.UNIT TAB PO SCH (08:35)
[2016-11-24] MEDS: DOXYCYCLINE IV 100 MG in DEXTROSE 5% 100ML 100 ML IV SCH ×2 (10:46→23:57)
--- NOTE | 2016-11-24 17:56 | Nephrology Consultation ---
Nephrology Consultation Date of Consultation: Nov 24, 2016. Attending Physician: Dr Reis Requesting Physician: Dr Reis Reason for Consultation: Advanced renal failure History of Present Illness 76 year old female sent from PCP office for management of hypoxia after being found to have 02 sats 71% on 3L. PMH includes HTN >40 years, chronic respiratory failure on 3L 02NC 24/7 for >15 years, osteoarthritis with ambulatory dysfunction, morbid obesity, hypothyroid, chronic diastolic HF, gastroplasty at [facility], remote neprhotlithiasis, advanced CKD stage 4 at least. Pt did not endorse acute illness on arrival here. Her sats were in 60' s on presentation; they normalized w/ solumedrol, nebs, 6L 02NC. VBG showed C02 100. She refused bipap and ABG initially; she did eventually get ABG showing pH 7.31 w/ pC02 79. Pulmonary evaluation is pending. Her presenting creatinine was 3.0; her K was 4.4. Her labs are essentially unchanged this AM. I saw her in CKD clinic in 01/2016 w/ 2 mo f/u recommended; she did not come back until yesterday where she presented with her son after having had no labs since June. This may have been in part b/c in June after a [facility] hospitzation/ [facility] rehab stay she repeatedly stated to PCP and community case manager that she wished to have no further labs, hospital stays, or aggressive interventions. Not clear what prompted repeat evaluation yesterday in CKD clinic. She saw her PCP after seeing me and was sent to hospital as above; the labs we had ordered in clinic were obviously not done d/t emergent clinical needs. She did run out of 02 during eval in my office and her son went to their vehicle to get another tank during interview, most of which was devoted to trying to verify w/ pt and her son goals of care regarding labs, ESRD. We did not end the interview with definitive positions about dialysis. Her labs prior to yesterday on our chart showed creatinine 2.6 from 07/10/16. She was admitted to [facility] approximately 07/02- w/ LUIS on CKD and hyperkalemia; her presenting creatinine was 5.6 and presenting K not found. She established care w/ [employer] after d/c for one visit per her report but opted not to continue her care there. Past Medical/Surgical History Medical Problems: (1) Acute respiratory failure with hypoxia Status: Acute as per HPI Family History FH: breast cancer MOTHER Social History Smoking Status: Former Smoker Alcohol Use: none Drug Use: none Marital Status: Housing Status: lives with family Occupation Status: retired Allergies Coded Allergies: Ampicillin (Unverified Allergy, Unknown, ITCHING, 11/23/16) Latex1 -Allergic Contact Dermititis (Unverified Allergy, Unknown, ITCHING , 11/23/16) Medications Current Inpatient Medications Medications (Trade) Dose Ordered Sig/Pieter Route Start Time Stop Time Status Last Admin Dose Admin Heparin Sodium (Porcine) 5000 unit 5,000 unit Q8 SQ 11/23/16 22:00 12/23/16 21:59 11/24/16 05:56 5,000 UNIT Sodium Chloride (Nss 1000ml) 1,000 ml @ 80 mls/hr [id number] IV 11/23/16 20:05 12/23/16 20:04 11/23/16 23:22 80 MLS/HR Acetaminophen (Tylenol Tab) 650 mg Q4H PRN PO 11/23/16 20:15 12/23/16 20:14 11/24/16 01:32 650 MG Ondansetron HCl (Zofran Inj) 4 mg Q6H PRN IV 11/23/16 20:15 12/23/16 20:14 Albuterol/ Ipratropium 3 ml 3 ml Q6R INH 11/23/16 21:00 12/23/16 20:59 11/24/16 02:02 3 ML Methylprednisolone Sodium Succinate 40 mg/Syringe 0.64 ml @ 1.5 mls/min Q8H IV 11/24/16 00:00 12/24/16 00:00 11/24/16 06:11 1.5 MLS/MIN Doxycycline Hyclate/Dextrose (Vibramycin IV/ D5 100ml) 110 ml @ 50 mls/hr Q12H IV 11/23/16 23:00 11/30/16 22:59 11/23/16 23:23 50 MLS/HR Amlodipine Besylate (Norvasc Tab) 10 mg QAM PO 11/24/16 09:00 12/24/16 08:59 Citalopram Hydrobromide (celeXA TAB) 20 mg DAILY PO 11/24/16 09:00 12/24/16 08:59 Isosorbide Mononitrate (Imdur Ext Rel Tab) 30 mg DAILY PO 11/24/16 09:00 12/24/16 08:59 Montelukast Sodium (Singulair Tab) 10 mg PM PO 11/23/16 21:00 12/23/16 20:59 11/23/16 23:33 10 MG Multivitamins (Multivitamin Tab) 1 tab DAILY PO 11/24/16 09:00 12/24/16 08:59 Cholecalciferol (Vitamin D Tab) 5,000 inter.unit QAM PO 11/24/16 09:00 12/24/16 08:59 Cyanocobalamin (Vitamin B-12 Tab) 1,000 mcg DAILY PO 11/24/16 09:00 12/24/16 08:59 Ferrous Sulfate (Feosol Tab) 325 mg DAILY PO 11/24/16 09:00 12/24/16 08:59 Pantoprazole Sodium (Protonix Tab) 40 mg DAILY PO 11/24/16 09:00 12/24/16 08:59 Budesonide/ Formoterol Fumarate (Symbicort 80/ 4.5 Inh) 2 puffs BID INH 11/24/16 09:00 12/24/16 08:59 Albuterol/ Ipratropium (Duoneb) 3 ml QIDR INH 11/24/16 08:00 12/24/16 07:59 11/24/16 07:24 3 ML Home Meds and Scripts Medications Dose Route/Sig Max Daily Dose Days Date Category Calmoseptine (Menthol-Zinc Oxide) 1 Oin Oin 1 Appln TOP DAILY PRN 11/23/16 Reported Multivitamin (Multivitamins) Tab 1 Tab PO DAILY 11/23/16 Reported Vitamin D3 (Cholecalciferol) 5,000 Unit Chw 5,000 Unit PO QAM 11/23/16 Reported Vitamin B12 (Cyanocobalamin) 1,000 Mcg Tab 1,000 Mcg PO DAILY 11/23/16 Reported Oxygen Gas 3 Liters NA PRN 11/23/16 Reported Trazodone (Trazodone HCl) 50 Mg Tab 50 Mg PO HS 11/23/16 Reported Carvedilol 6.25 Mg Tab 6.25 Mg PO BIDM 11/23/16 Reported Celexa (Citalopram Hydrobromide) 20 Mg Tab 20 Mg PO DAILY 11/23/16 Reported Prilosec (Omeprazole) 20 Mg Capcr 20 Mg PO DAILY 11/23/16 Reported Zaroxolyn (Metolazone) 2.5 Mg Tab 2.5 Mg PO DAILY 11/23/16 Reported Isosorbide Mononitrate ER (Isosorbide Mononitrate) 30 Mg Tabcr 30 Mg PO DAILY 11/23/16 Reported Duoneb (Ipratropium-Albuterol) 3 Ml Nebu 1 Treatment INH Q4H PRN 11/23/16 Reported Lasix (Furosemide) 40 Mg Tab 40 Mg PO BID 11/23/16 Reported Amlodipine Besylate 5 Mg Tab 10 Mg PO QAM 10/20/14 Rx Montelukast Sodium (Montelukast Sod) 10 Mg Tab 10 Mg PO DAILY 07/23/14 Reported Iron (Ferrous Sulfate) 325 Mg Tab 325 Mg PO DAILY 07/23/14 Reported Review of Systems Constitutional: + weakness Eyes: No worsening of vision Respiratory: No shortness of breath (no change in chronic dyspnea) Abdomen: No pain Heme: No abnormal bleeding/bruising pt is very withdrawn which limits ROS; states she remembers me from yesterday, remembers our discussion but that she "ain't gonna talk no more" about how she feels today Physical Exam Date Time Temp Pulse Resp B/P Pulse Ox O2 Delivery O2 Flow Rate FiO2 11/24/16 07:24 57 16 95 Nasal Cannula 2.0 11/24/16 04:05 36.7 51 20 174/58 97 Nasal Cannula 2.0 11/24/16 04:00 98 Nasal Cannula 2.0 11/24/16 02:02 49 20 96 Nasal Cannula 2.0 11/24/16 00:00 36.8 46 20 180/51 98 Nasal Cannula 2.0 11/23/16 23:59 98 Nasal Cannula 2.0 11/23/16 22:37 37.1 50 22 197/69 98 Nasal Cannula 5.0 11/23/16 21:30 164/48 11/23/16 21:18 50 22 96 11/23/16 21:00 176/60 11/23/16 20:48 47 18 95 11/23/16 20:30 162/50 11/23/16 20:18 46 17 98 11/23/16 20:00 164/62 11/23/16 19:48 41 17 98 11/23/16 19:46 42 18 147/47 100 Nasal Cannula 6.0 11/23/16 19:41 147/47 11/23/16 19:18 44 18 98 11/23/16 19:08 Nasal Cannula 3.0 11/23/16 18:48 45 25 11/23/16 18:30 168/49 11/23/16 18:30 41 24 168/49 100 Nasal Cannula 6.0 11/23/16 18:18 39 18 11/23/16 18:01 161/61 11/23/16 17:48 43 28 100 11/23/16 17:43 194/72 11/23/16 17:43 38 23 194/72 100 Nasal Cannula 6.0 11/23/16 17:18 41 18 100 11/23/16 17:13 91 18 96 Nasal Cannula 3.0 11/23/16 16:51 100 Nasal Cannula 6.0 11/23/16 16:51 100 Nasal Cannula 6.0 11/23/16 16:50 24 100 Nasal Cannula 6.0 11/23/16 16:48 44 24 100 11/23/16 16:45 41 11/23/16 16:30 177/69 11/23/16 16:28 Nasal Cannula 6.0 11/23/16 16:28 37.1 44 24 64 Nasal Cannula 3.0 24-Hour Column 11/24/16 08:00 Intake Total 685 ml Output Total 1425 ml Balance -740 ml General Appearance: no apparent distress, + obese (on 02NC) Eyes: EOMI ENT: + pertinent finding (hard of hearing as yesterday) Neck: supple Respiratory/Chest: no respiratory distress, no accessory muscle use, + decreased breath sounds Cardiovascular: regular rate, rhythm Abdomen: non tender, soft, + pertinent finding (finch w/ some urine) Extremities: + pedal edema, + swelling (1-2+) Neurologic/Psych: alert, + motor weakness, + pertinent finding (difficult to assess if oriented or not b/c she is so reluctant to talk/interact) Skin: warm/dry, no rash Diagnostics Last 24 Hours Test 11/23/16 16:50 11/23/16 16:58 11/23/16 16:59 11/23/16 17:16 White Blood Count 9.52 K/uL Red Blood Count 2.98 M/uL Hemoglobin 9.4 g/dL Hematocrit 31.4 % Mean Corpuscular Volume 105.4 fL Mean Corpuscular Hemoglobin 31.5 pg Mean Corpuscular Hemoglobin Concent 29.9 g/dl Platelet Count 147 K/uL Mean Platelet Volume 10.2 fL Neutrophils (%) (Auto) 79.5 % Lymphocytes (%) (Auto) 12.1 % Monocytes (%) (Auto) 7.2 % Eosinophils (%) (Auto) 0.9 % Basophils (%) (Auto) 0.1 % Neutrophils # (Auto) 7.56 K/uL Lymphocytes # (Auto) 1.15 K/uL Monocytes # (Auto) 0.69 K/uL Eosinophils # (Auto) 0.09 K/uL Basophils # (Auto) 0.01 K/uL RDW Standard Deviation 49.1 fL RDW Coefficient of Variation 12.8 % Immature Granulocyte % (Auto) 0.2 % Immature Granulocyte # (Auto) 0.02 K/uL Prothrombin Time 10.6 SECONDS Prothromb Time International Ratio 1.0 Activated Partial Thromboplast Time 26.5 SECONDS Partial Thromboplastin Ratio 1.0 Sodium Level 137 mmol/L Potassium Level 4.4 mmol/L Chloride Level 92 mmol/L Carbon Dioxide Level 40 mmol/L Anion Gap 5.0 mmol/L Blood Urea Nitrogen 83 mg/dl Creatinine 3.00 mg/dl Est Creatinine Clear Calc Drug Dose 19.4 ml/min Estimated GFR () 17.0 Estimated GFR (Non- 14.7 BUN/Creatinine Ratio 27.6 Random Glucose 115 mg/dl Estimated Average Glucose 114 mg/dl Hemoglobin A1c 5.6 % Calcium Level 9.3 mg/dl Total Bilirubin 0.3 mg/dl Aspartate Amino Transf (AST/SGOT) 10 U/L Alanine Aminotransferase (ALT/SGPT) 12 U/L Alkaline Phosphatase 128 U/L Total Creatine Kinase 23 U/L Creatine Kinase MB < 0.5 ng/ml Creatine Kinase MB Ratio Total Protein 7.5 gm/dl Albumin 3.7 gm/dl Globulin 3.8 gm/dl Albumin/Globulin Ratio 1.0 Bedside Lactic Acid Venous 0.71 mmol/L Bedside Troponin I 0.020 ng/ml [id number] Natriuretic Peptide 2594 pg/ml Venous Blood pH 7.24 Venous Blood Partial Pressure CO2 100 mmHg Venous Blood Partial Pressure O2 38 mmHg Venous Blood HCO3 42 mmol/L Venous Blood Oxygen Saturation 66.8 % Venous Blood Base Excess 12.0 mmol/L Test 11/24/16 00:00 11/24/16 06:36 11/24/16 06:38 Urine Color YELLOW Urine Appearance CLEAR Urine pH 5.0 Urine Specific [place] 1.012 Urine Protein TRACE Urine Glucose (UA) NEG Urine Ketones NEG Urine Occult Blood TRACE Urine Nitrite POS Urine Bilirubin NEG Urine Urobilinogen NEG Urine Leukocyte Esterase MODERATE Urine WBC (Auto) 10-30 /hpf Urine RBC (Auto) 0-4 /hpf Urine Hyaline Casts (Auto) 1-5 /lpf Urine Epithelial Cells (Auto) 20-30 /lpf Urine Bacteria (Auto) 2+ Arterial Blood pH 7.31 Arterial Blood Partial Pressure CO2 79 mmHg Arterial Blood Partial Pressure O2 80 mm/Hg Arterial Blood HCO3 39 mmol/L Arterial Blood Oxygen Saturation 92.5 % Arterial Blood Base Excess 10.7 mEq/L Arterial Blood Gas Delivery 2L Truong Test POS White Blood Count 5.15 K/uL Red Blood Count 2.93 M/uL Hemoglobin 9.2 g/dL Hematocrit 30.0 % Mean Corpuscular Volume 102.4 fL Mean Corpuscular Hemoglobin 31.4 pg Mean Corpuscular Hemoglobin Concent 30.7 g/dl RDW Standard Deviation 47.1 fL RDW Coefficient of Variation 12.7 % Platelet Count 123 K/uL Mean Platelet Volume 9.5 fL Sodium Level 140 mmol/L Potassium Level 4.3 mmol/L Chloride Level 95 mmol/L Carbon Dioxide Level 40 mmol/L Anion Gap 5.0 mmol/L Blood Urea Nitrogen 92 mg/dl Creatinine 3.00 mg/dl Est Creatinine Clear Calc Drug Dose 18.4 ml/min Estimated GFR () 17.0 Estimated GFR (Non- 14.7 BUN/Creatinine Ratio 30.5 Random Glucose 171 mg/dl Calcium Level 9.1 mg/dl Diagnostic Radiology: chest xray > no acute cardiopulmonary process Assessment & Plan 76 y/o F w/ advanced CKD, chronic respiratory failure on longstanding 02nc 3L, chronic diastolic HF reported, admitted overnight with acute on chronic hypercapneic respiratory failure and copd exacerbation, worsening renal function on baseline CKD4, bradycardia w/ HR in 40s. CKD 4/5 >> she has had progressive CKD w/ progression already notable last January ; unclear if component of LUIS here and more likely progressive renal failure; her baseline creatinine last January was 1.8 (eGFR 28); also with creatinine 2.6 on last labs 06/2016. Since then she had refused further lab work per report in . Her serum chemistries are acceptable here at [facility]. her urine specimen from admission is contaminated but suggests possible UTI; f/u pending cxs; no voiding sx at OV yesterday. -daily bmp -avoid nephrotoxins -no acute indication for dialysis but goals of care need to continue to be discussed; these discussions have been challenging so far -strict I/O HTN -agree w/ amlodipine -stopped NS and continue renal diet -agree w/ holding BB and for now diuretic though likely to need to resume the latter soon -consider prn hydralazine Anemia of chronic disease macrocytic anemia, not unexpected w/ gastroplasty hx >will check iron stores and consider epo as indicated Bradycardia -longstanding issue > HR in low 50s last January; per primary service; note improved HR this am COPD/Acute on chronic hypercapneic respiratory failure -per primary service and pulmonary ?baseline cognitive and emotional status >careful assessment for infection and depression; low threshold for psych eval if behavior no different after infectious / pulmonary issues adequately addressed Appreciate consultation; will follow with you.
[2016-11-24] MEDS ORDERED: NURSING VERBAL MED ORDER ONE (20:00)
--- NOTE | 2016-11-24 20:14 | Progress Note ---
Medicine Progress Note Date & Time of Visit: Nov 24, 2016 at 20:10. Subjective patient seen resting in bed, comfortable states she feels improved reports breathing is improving, no cough denies chest pain, dizziness, nausea, vomiting, abdominal pain no other symptoms Objective Last 8 Hrs Date Time Temp Pulse Resp B/P Pulse Ox O2 Delivery O2 Flow Rate FiO2 11/24/16 19:18 68 18 95 Nasal Cannula 2.0 11/24/16 16:00 Room Air 11/24/16 15:15 37.0 69 20 148/66 97 Nasal Cannula 2.0 11/24/16 14:42 61 16 96 Nasal Cannula 2.0 Physical Exam: General- oriented x 3, not in distress, speaks in sentences with no effort Eyes- EOMI, anicteric ENT- oropharynx clear Neck- supple, no JVD Lungs- clear breath sounds bilaterally, no rales/wheezes Heart-normal rate, regular rhythm; no murmurs Abdomen- normal bowel sounds, soft, nontender Extremities- no pretibial edema, no calf tenderness Neuro- alert, oriented x 3;no gross deficits Skin- warm & dry Laboratory Results: Last 24 Hours Test 11/24/16 00:00 11/24/16 06:36 11/24/16 06:38 Urine Color YELLOW Urine Appearance CLEAR Urine pH 5.0 Urine Specific [place] 1.012 Urine Protein TRACE Urine Glucose (UA) NEG Urine Ketones NEG Urine Occult Blood TRACE Urine Nitrite POS Urine Bilirubin NEG Urine Urobilinogen NEG Urine Leukocyte Esterase MODERATE Urine WBC (Auto) 10-30 /hpf Urine RBC (Auto) 0-4 /hpf Urine Hyaline Casts (Auto) 1-5 /lpf Urine Epithelial Cells (Auto) 20-30 /lpf Urine Bacteria (Auto) 2+ Arterial Blood pH 7.31 Arterial Blood Partial Pressure CO2 79 mmHg Arterial Blood Partial Pressure O2 80 mm/Hg Arterial Blood HCO3 39 mmol/L Arterial Blood Oxygen Saturation 92.5 % Arterial Blood Base Excess 10.7 mEq/L Arterial Blood Gas Delivery 2L Truong Test POS White Blood Count 5.15 K/uL Red Blood Count 2.93 M/uL Hemoglobin 9.2 g/dL Hematocrit 30.0 % Mean Corpuscular Volume 102.4 fL Mean Corpuscular Hemoglobin 31.4 pg Mean Corpuscular Hemoglobin Concent 30.7 g/dl RDW Standard Deviation 47.1 fL RDW Coefficient of Variation 12.7 % Platelet Count 123 K/uL Mean Platelet Volume 9.5 fL Sodium Level 140 mmol/L Potassium Level 4.3 mmol/L Chloride Level 95 mmol/L Carbon Dioxide Level 40 mmol/L Anion Gap 5.0 mmol/L Blood Urea Nitrogen 92 mg/dl Creatinine 3.00 mg/dl Est Creatinine Clear Calc Drug Dose 18.4 ml/min Estimated GFR () 17.0 Estimated GFR (Non- 14.7 BUN/Creatinine Ratio 30.5 Random Glucose 171 mg/dl Calcium Level 9.1 mg/dl Date/Time Source Procedure Growth Status 11/24/16 00:00 Urine , Clean Catch Urine Culture Pending Received Assessment & Plan ACUTE ON CHRONIC HYPERCAPNIC, HYPOXIC RESPIRATORY FAILURE DUE TO COPD EXACERBATION - VBG showed CO2 100, pH 7.24 - patient refusing ABG and BiPap - CXR no obvious pneumonia - continue Doxycycline Day 2, Solumedrol, added Nebs , Symbicor - appreciate Pulmonary consult LUIS ON CKD STAGE IV - likely prerenal - baseline creat ~ 2.2 - up to 3.0 - possible progression of CKD IV fluids on hold - appreciate Nephro consult BRADYCARDIA - resolved - hold beta ananya HTN - continue isosorbide and amlodipine - holding beta ananya due to bradycardia DIASTOLIC CHF, AORTIC STENOSIS - holing diuretics - echo 09/2015 - moderate , mild MR and TR DVT PROPHYLAXIS - SQ Heparin CODE STATUS - Patient is a DNR DISPO pending PT OT eval Current Inpatient Medications: Current Inpatient Medications Medications (Trade) Dose Ordered Sig/Pieter Route Start Time Stop Time Status Last Admin Dose Admin Heparin Sodium (Porcine) (Heparin Sq 5000 Unit/0.5ml) 5,000 unit Q8 SQ 11/23/16 22:00 12/23/16 21:59 11/24/16 14:14 5,000 UNIT Acetaminophen (Tylenol Tab) 650 mg Q4H PRN PO 11/23/16 20:15 12/23/16 20:14 11/24/16 01:32 650 MG Ondansetron HCl 4 mg 4 mg Q6H PRN IV 11/23/16 20:15 12/23/16 20:14 Methylprednisolone Sodium Succinate 40 mg/Syringe 0.64 ml @ 1.5 mls/min Q8H IV 11/24/16 00:00 12/24/16 00:00 11/24/16 15:53 1.5 MLS/MIN Doxycycline Hyclate/Dextrose (Vibramycin IV/ D5 100ml) 110 ml @ 50 mls/hr Q12H IV 11/23/16 23:00 11/30/16 22:59 11/24/16 10:46 50 MLS/HR Amlodipine Besylate (Norvasc Tab) 10 mg QAM PO 11/24/16 09:00 12/24/16 08:59 11/24/16 08:34 10 MG Citalopram Hydrobromide (celeXA TAB) 20 mg DAILY PO 11/24/16 09:00 12/24/16 08:59 11/24/16 08:33 20 MG Isosorbide Mononitrate (Imdur Ext Rel Tab) 30 mg DAILY PO 11/24/16 09:00 12/24/16 08:59 11/24/16 08:34 30 MG Montelukast Sodium (Singulair Tab) 10 mg PM PO 11/23/16 21:00 12/23/16 20:59 11/23/16 23:33 10 MG Multivitamins (Multivitamin Tab) 1 tab DAILY PO 11/24/16 09:00 12/24/16 08:59 11/24/16 08:34 1 TAB Cholecalciferol (Vitamin D Tab) 5,000 inter.unit QAM PO 11/24/16 09:00 12/24/16 08:59 11/24/16 08:35 5,000 INTER.UNIT Cyanocobalamin (Vitamin B-12 Tab) 1,000 mcg DAILY PO 11/24/16 09:00 12/24/16 08:59 11/24/16 08:35 1,000 MCG Ferrous Sulfate (Feosol Tab) 325 mg DAILY PO 11/24/16 09:00 12/24/16 08:59 11/24/16 08:34 325 MG Pantoprazole Sodium (Protonix Tab) 40 mg DAILY PO 11/24/16 09:00 12/24/16 08:59 11/24/16 08:34 40 MG Budesonide/ Formoterol Fumarate (Symbicort 80/ 4.5 Inh) 2 puffs BID INH 11/24/16 09:00 12/24/16 08:59 11/24/16 08:33 2 PUFFS Albuterol/ Ipratropium (Duoneb) 3 ml QIDR INH 11/24/16 08:00 12/24/16 07:59 11/24/16 19:18 3 ML Miscellaneous Information (Nursing Verbal Med Order) 1 ea ONE ONCE N/A 11/24/16 20:00 11/24/16 20:01 UNV
[2016-11-24] MEDS ORDERED: TRAMADOL HCL 50 MG TAB PO PRN (20:45)
[2016-11-24] MEDS: MONTELUKAST SOD 10 MG TAB PO SCH (20:45)
[2016-11-24] MEDS ORDERED: TRAMADOL HCL 50 MG TAB PO ONE (20:45)
[2016-11-25] VITALS (14 sets, daily range): BP systolic 152–201; BP diastolic 63–75; PULSE 59–82; TEMP 36.5–36.8; O2SAT 95–100
[2016-11-25] MEDS: TRAZODONE HCL 50 MG TAB PO SCH ×2 (04:06→21:18)
[2016-11-25] MEDS: HEPARIN SOD 5000 UNIT/0.5 ML CARP SQ SCH ×3 (04:49→21:20)
--- NOTE | 2016-11-25 06:40 | PULMONARY PROGRESS NOTE ---
DATE: 11/25/2016 SUBJECTIVE: The patient states she is considerably improved. She was out of bed for several hours yesterday and tolerated that well. She had been evaluated by Dr. Kathy Forrester from the department of nephrology and her notes are appreciated. The patient denies any cough. States she is 100% better than at the time of admission. She states she really does not want much done now and would like to be discharged perhaps back to senior care for continued care. PHYSICAL EXAMINATION: VITAL SIGNS: Stable and she is afebrile. Blood pressure 152/64, oxygen saturation 97% on 3 liters. GENERAL: Her weight is 104.7 kilograms, that is up from 102.3 kilograms on the 10th. According to nurses' note, she had a fairly good night last night without any significant complaints. Heart rhythm has been stable. HEENT: Unremarkable. No neck vein distention or HJR. HEART: Regular rate and rhythm. No murmurs are heard. LUNGS: With markedly decreased breath sounds bilaterally, otherwise are clear. No wheezing is noted. No crackles noted. ABDOMEN: Soft, nontender and she has no cyanosis, clubbing or edema. LABORATORY DATA: Blood gas yesterday revealed pH 7.31, pCO2 of 79, pO2 of 80. CO2 is 40 on the electrolytes yesterday with BUN 92 and creatinine 3. IMPRESSION: 1. Respiratory failure with hypercapnia and hypoxemia secondary to chronic obstructive lung disease. 2. Severe end-stage chronic obstructive pulmonary disease. 3. Stage IV chronic kidney disease with worsening creatinine. RECOMMENDATIONS: 1. From a pulmonary standpoint, she seems to be stable. Continue with her present medications, change the Solu-Medrol to prednisone 30 mg daily and taper that over about 10 days. 2. I think the Singulair could be discontinued. 3. Continue on the DuoNeb 4 times a day and q. 4 hours p.r.n. Overall, today she seems to be improved. PATITO
[2016-11-25] MEDS: ALBUT/IPRATROP 3MG/0.5MG NEB 3 ML VIAL INH SCH ×4 (07:04→19:10)
[2016-11-25] MEDS: METHYLPREDNISOLONE IV 40 MG in SYRINGE 0 ML IV SCH (08:05)
[2016-11-25 08:30] LABS: BUN/CREATININE RATIO 35.4 (10-20); CALCIUM 9.2 mg/dl (8.5-10.1); CREATININE 2.6 mg/dl (0.60-1.20); POTASSIUM 4.4 mmol/L (3.5-5.1)
[2016-11-25] MEDS: AMLODIPINE BESYLATE 5 MG TAB PO SCH (08:47)
[2016-11-25] MEDS: BUDESONIDE/FORMOTEROL FUMARATE 80/4.5 60 PUFFS/INHALER INH SCH ×2 (08:47→21:18)
[2016-11-25] MEDS: CITALOPRAM 20 MG TAB PO SCH (08:47)
[2016-11-25] MEDS: FERROUS SULFATE 325 MG TAB PO SCH (08:48)
[2016-11-25] MEDS: MULTIVITAMIN TAB PO SCH (08:48)
[2016-11-25] MEDS: ISOSORBIDE MONONITRATE 30 MG TABCR PO SCH (08:48)
[2016-11-25] MEDS: CYANOCOBALAMIN 500 MCG TAB (VIT B-12) PO SCH (08:48)
[2016-11-25] MEDS: PANTOprazole SOD 40 MG TAB PO SCH (08:49)
[2016-11-25] MEDS: CHOLECALCIFEROL 1000 INTER.UNIT TAB PO SCH (08:49)
[2016-11-25] MEDS ORDERED: DOXYCYCLINE HYCLATE 100 MG CAP PO ONE (09:38)
--- NOTE | 2016-11-25 09:38 | Progress Note ---
Medicine Progress Note Date & Time of Visit: Nov 25, 2016 at 09:31. Subjective patient states she feels improved today in good spirits states breathing continues to improve, no cough denies chest pain, palpitations, dizziness no nausea/vomiting, abdominal pain no other symptoms Objective Last 8 Hrs Date Time Temp Pulse Resp B/P Pulse Ox O2 Delivery O2 Flow Rate FiO2 11/25/16 08:42 61 188/70 97 3.0 11/25/16 07:45 Nasal Cannula 2.0 11/25/16 07:20 36.6 64 20 99 Nasal Cannula 3.0 11/25/16 07:04 63 18 97 Nasal Cannula 2.0 11/25/16 04:00 Nasal Cannula 2.0 11/25/16 03:52 36.8 82 20 152/64 97 Nasal Cannula 3.0 Physical Exam: General- oriented x 3, not in distress, speaks in sentences with no effort Eyes- anicteric Neck- no JVD Lungs- clear breath sounds , no rales/wheezes b/l Heart-normal rate, regular rhythm; no murmurs Abdomen- normal bowel sounds, soft, nontender Extremities- no pretibial edema, no calf tenderness Neuro- alert, oriented x 3;no gross deficits Skin- warm & dry Laboratory Results: Last 24 Hours Test 11/25/16 07:45 Sodium Level 137 mmol/L Potassium Level 4.4 mmol/L Chloride Level 92 mmol/L Carbon Dioxide Level 39 mmol/L Anion Gap 6.0 mmol/L Blood Urea Nitrogen 92 mg/dl Creatinine 2.60 mg/dl Est Creatinine Clear Calc Drug Dose 21.6 ml/min Estimated GFR () 20.2 Estimated GFR (Non- 17.5 BUN/Creatinine Ratio 35.4 Random Glucose 161 mg/dl Calcium Level 9.2 mg/dl Assessment & Plan 76 year old female with history of Chronic Respiratory Failure on 3 liters o2, COPD, CHF Diastolic, Aortic Stenosis, HTN, CKD 4 presenting with shortness of breath. ACUTE ON CHRONIC HYPERCAPNIC, HYPOXIC RESPIRATORY FAILURE DUE TO COPD EXACERBATION - VBG showed CO2 100, pH 7.24 - patient declined ABG and BiPap - CXR no obvious pneumonia - improved back to baseline 3 liters nasal cannula - continue Doxycycline Day 3, Solumedrol changed to Prednisone added Nebs , Symbicort d/c Singulair - appreciate Pulmonary consult LUIS ON CKD STAGE IV - likely prerenal - baseline creat ~ 2.2 - up to 3.0 held Lasix - crea improved to 2.6 - possible progression of CKD - appreciate Nephro consult BRADYCARDIA - resolved - HR 40s on admission - d/c Carvedilol HTN - Carvedilol held BP on the high side add Hydralazine 25mg po BID - continue isosorbide and amlodipine - monitor DIASTOLIC CHF, AORTIC STENOSIS - Lasix on hold - euvolemic - echo 09/2015 - moderate , mild MR and TR - monitor DVT PROPHYLAXIS - SQ Heparin CODE STATUS - Patient is a DNR DISPO pending PT OT eval ordered usually lives at home with Current Inpatient Medications: Current Inpatient Medications Medications (Trade) Dose Ordered Sig/Pieter Route Start Time Stop Time Status Last Admin Dose Admin Heparin Sodium (Porcine) (Heparin Sq 5000 Unit/0.5ml) 5,000 unit Q8 SQ 11/23/16 22:00 12/23/16 21:59 11/24/16 21:30 5,000 UNIT Acetaminophen (Tylenol Tab) 650 mg Q4H PRN PO 11/23/16 20:15 12/23/16 20:14 11/24/16 23:52 650 MG Ondansetron HCl 4 mg 4 mg Q6H PRN IV 11/23/16 20:15 12/23/16 20:14 Doxycycline Hyclate/Dextrose (Vibramycin IV/ D5 100ml) 110 ml @ 50 mls/hr Q12H IV 11/23/16 23:00 11/30/16 22:59 11/24/16 23:57 50 MLS/HR Amlodipine Besylate (Norvasc Tab) 10 mg QAM PO 11/24/16 09:00 12/24/16 08:59 11/25/16 08:47 10 MG Citalopram Hydrobromide (celeXA TAB) 20 mg DAILY PO 11/24/16 09:00 12/24/16 08:59 11/25/16 08:47 20 MG Isosorbide Mononitrate (Imdur Ext Rel Tab) 30 mg DAILY PO 11/24/16 09:00 12/24/16 08:59 11/25/16 08:48 30 MG Multivitamins (Multivitamin Tab) 1 tab DAILY PO 11/24/16 09:00 12/24/16 08:59 11/25/16 08:48 1 TAB Cholecalciferol (Vitamin D Tab) 5,000 inter.unit QAM PO 11/24/16 09:00 12/24/16 08:59 11/25/16 08:49 5,000 INTER.UNIT Cyanocobalamin (Vitamin B-12 Tab) 1,000 mcg DAILY PO 11/24/16 09:00 12/24/16 08:59 11/25/16 08:48 1,000 MCG Ferrous Sulfate (Feosol Tab) 325 mg DAILY PO 11/24/16 09:00 12/24/16 08:59 11/25/16 08:48 325 MG Pantoprazole Sodium (Protonix Tab) 40 mg DAILY PO 11/24/16 09:00 12/24/16 08:59 11/25/16 08:49 40 MG Budesonide/ Formoterol Fumarate (Symbicort 80/ 4.5 Inh) 2 puffs BID INH 11/24/16 09:00 12/24/16 08:59 11/25/16 08:47 2 PUFFS Albuterol/ Ipratropium (Duoneb) 3 ml QIDR INH 11/24/16 08:00 12/24/16 07:59 11/25/16 07:04 3 ML Tramadol HCl (Ultram Tab) 50 mg Q8H PRN PO 11/24/16 20:45 12/24/16 20:44 Trazodone HCl (Desyrel Tab) 50 mg HS PO 11/25/16 03:45 12/25/16 03:44 11/25/16 04:06 50 MG Prednisone (PredniSONE TAB) 30 mg DAILY PO 11/26/16 09:00 12/26/16 08:59 UNV Hydralazine HCl (Apresoline Tab) 25 mg BID PO 11/25/16 21:00 12/25/16 20:59 UNV
[2016-11-25] MEDS ORDERED: CLONIDINE HCL 0.1 MG TAB PO STA (10:40)
--- NOTE | 2016-11-25 12:39 | Clinical Documentation Query ---
ISMAEL Mahan : CLINICAL DOCUMENTATION QUERY Patient is a 76 year old female admitted for evaluation and treatment of acute on chronic hypercapnic, hypoxic respiratory failure due to COPD exacerbation and LUIS on CKD stage 4. Urine cultures positive for kim sensitive gram negative bacilli. Patient was started on Doxycycline. As appropriate, consider clarification as suggested below. Thank you. In your clinical opinion is this patient being managed for: ( ) (Possible/Suspected) urinary tract infection (X ) Other explanation of clinical findings (Please Explain) UTI , Klebsiella ( ) Unable to determine (Please Define) ( ) Need to Discuss ( ) Not Agree The medical record reflects the following clinical findings, treatment, and risk factors. Clinical Indicators: As above Treatment: Patient was started on Doxycycline Risk Factors: Age, gender Please clarify and document your clinical opinion in the progress notes and discharge summary. Terms such as "probable", "suspected", "likely", "questionable", "possible", or "still to be ruled out" are acceptable. IF IN AGREEMENT, YOU MUST DOCUMENT ABOVE DIAGNOSTIC STATEMENT IN DAILY PROGRESS NOTES AND DISCHARGE SUMMARY. This document is not part of the patient's record. Thank You, Jeovanny Ernandez, RN [phone]
--- NOTE | 2016-11-25 16:35 | Nephrology Progress Note ---
Nephrology Progress Note Date of Service: Nov 25, 2016. Subjective seen on rounds this am at about 0745. states she's "doing better than you are b /c I don't have to work;" she continues to refuse bipap. no pain; denies dyspnea. states she can't remember me from CKD clinic, nor can she remember nurse who cared for her yesterday: acknowledges she has short term memory problems. States she wants to "be at home among my friends and to be left alone ," "I don't want to be in no hospital and I don't want to be in no usp " Objective Date Time Temp Pulse Resp B/P Pulse Ox O2 Delivery O2 Flow Rate FiO2 11/25/16 15:15 36.6 59 20 170/65 100 Nasal Cannula 3.0 11/25/16 12:00 97 Nasal Cannula 3.0 11/25/16 11:50 64 18 99 Nasal Cannula 3.0 11/25/16 10:57 36.5 63 20 201/75 99 Nasal Cannula 3.0 11/25/16 08:42 61 188/70 97 3.0 11/25/16 08:00 97 Nasal Cannula 3.0 11/25/16 07:45 Nasal Cannula 2.0 11/25/16 07:20 36.6 64 20 99 Nasal Cannula 3.0 11/25/16 07:04 63 18 97 Nasal Cannula 2.0 11/25/16 04:00 Nasal Cannula 2.0 11/25/16 03:52 36.8 82 20 152/64 97 Nasal Cannula 3.0 11/25/16 00:01 Nasal Cannula 2.0 11/25/16 00:00 36.7 71 22 162/63 98 Nasal Cannula 3.0 11/24/16 20:30 37.3 72 18 149/57 96 Nasal Cannula 3.0 11/24/16 20:00 Room Air 11/24/16 19:18 68 18 95 Nasal Cannula 2.0 Physical Exam: General Appearance: no apparent distress, + obese (on 02NC), lying flat Eyes: EOMI ENT: + pertinent finding (hard of hearing) Neck: supple Respiratory/Chest: no respiratory distress, no accessory muscle use, + decreased breath sounds Cardiovascular: regular rate, rhythm Abdomen: non tender, soft Extremities: + pedal edema, + swelling (1-2+) Neurologic/Psych: alert, + motor weakness, + pertinent finding (knows where she is and who she is; clear about what she wants) Skin: warm/dry, no rash Current Inpatient Medications Medications (Trade) Dose Ordered Sig/Pieter Route Start Time Stop Time Status Last Admin Dose Admin Heparin Sodium (Porcine) (Heparin Sq 5000 Unit/0.5ml) 5,000 unit Q8 SQ 11/23/16 22:00 12/23/16 21:59 11/25/16 14:04 5,000 UNIT Acetaminophen (Tylenol Tab) 650 mg Q4H PRN PO 11/23/16 20:15 12/23/16 20:14 11/24/16 23:52 650 MG Ondansetron HCl (Zofran Inj) 4 mg Q6H PRN IV 11/23/16 20:15 12/23/16 20:14 Amlodipine Besylate (Norvasc Tab) 10 mg QAM PO 11/24/16 09:00 12/24/16 08:59 11/25/16 08:47 10 MG Citalopram Hydrobromide (celeXA TAB) 20 mg DAILY PO 11/24/16 09:00 12/24/16 08:59 11/25/16 08:47 20 MG Isosorbide Mononitrate (Imdur Ext Rel Tab) 30 mg DAILY PO 11/24/16 09:00 12/24/16 08:59 11/25/16 08:48 30 MG Multivitamins (Multivitamin Tab) 1 tab DAILY PO 11/24/16 09:00 12/24/16 08:59 11/25/16 08:48 1 TAB Cholecalciferol (Vitamin D Tab) 5,000 inter.unit QAM PO 11/24/16 09:00 12/24/16 08:59 11/25/16 08:49 5,000 INTER.UNIT Cyanocobalamin (Vitamin B-12 Tab) 1,000 mcg DAILY PO 11/24/16 09:00 12/24/16 08:59 11/25/16 08:48 1,000 MCG Ferrous Sulfate (Feosol Tab) 325 mg DAILY PO 11/24/16 09:00 12/24/16 08:59 11/25/16 08:48 325 MG Pantoprazole Sodium (Protonix Tab) 40 mg DAILY PO 11/24/16 09:00 12/24/16 08:59 11/25/16 08:49 40 MG Budesonide/ Formoterol Fumarate (Symbicort 80/ 4.5 Inh) 2 puffs BID INH 11/24/16 09:00 12/24/16 08:59 11/25/16 08:47 2 PUFFS Albuterol/ Ipratropium (Duoneb) 3 ml QIDR INH 11/24/16 08:00 12/24/16 07:59 11/25/16 11:50 3 ML Tramadol HCl (Ultram Tab) 50 mg Q8H PRN PO 11/24/16 20:45 12/24/16 20:44 Trazodone HCl (Desyrel Tab) 50 mg HS PO 11/25/16 03:45 12/25/16 03:44 11/25/16 04:06 50 MG Prednisone (PredniSONE TAB) 30 mg DAILY PO 11/26/16 09:00 12/26/16 08:59 Hydralazine HCl (Apresoline Tab) 25 mg BID PO 11/25/16 21:00 12/25/16 20:59 Doxycycline Hyclate (Vibramycin Cap) 100 mg BID PO 11/25/16 21:00 11/30/16 22:59 Last 24 Hours Test 11/25/16 07:45 Sodium Level 137 mmol/L Potassium Level 4.4 mmol/L Chloride Level 92 mmol/L Carbon Dioxide Level 39 mmol/L Anion Gap 6.0 mmol/L Blood Urea Nitrogen 92 mg/dl Creatinine 2.60 mg/dl Est Creatinine Clear Calc Drug Dose 21.6 ml/min Estimated GFR () 20.2 Estimated GFR (Non- 17.5 BUN/Creatinine Ratio 35.4 Random Glucose 161 mg/dl Calcium Level 9.2 mg/dl Assessment & Plan 76 y/o F w/ advanced CKD, chronic respiratory failure on longstanding 02nc 3L, chronic diastolic HF reported, admitted 11/23 with acute on chronic hypercapneic respiratory failure and copd exacerbation, worsening renal function on baseline CKD4, bradycardia w/ HR in 40s. CKD 4/5 >> she has had progressive CKD w/ progression already notable last January ; unclear if component of LUIS here and more likely progressive renal failure; her baseline creatinine last January was 1.8 (eGFR 28); also with creatinine 2.6 on last labs 06/2016. Since then she had refused further lab work per report in . Her serum chemistries are acceptable here at [facility]. her urine specimen from admission is contaminated but UA and urine cx c/w K pneiae; no voiding sx at OV -daily bmp -avoid nephrotoxins -no acute indication for dialysis but goals of care need to continue to be discussed; these discussions have been challenging so far > she is very clear she does not want invasive/ aggressive care; she seems to understand that her choices (for example not to do dialysis) mean that she may sooner but that she be able to spend less time in hospital and more time at home -strict I/O HTN -agree w/ amlodipine, hydralyzine >amlodipine may take time to reach effect -continue renal diet -agree w/ holding BB and for now diuretic though likely to need to resume the latter soon -consider prn hydralazine Anemia of chronic disease macrocytic anemia, not unexpected w/ gastroplasty hx >will check iron stores and consider epo as indicated Bradycardia -longstanding issue > HR in low 50s last January; per primary service; note HR remains improved off of BB COPD/Acute on chronic hypercapneic respiratory failure -per primary service and pulmonary ?baseline cognitive and emotional status >careful assessment for depression; will double check abtx w/ primary service; low threshold for psych eval if behavior no different after infectious / pulmonary issues adequately addressed -may need to clarify goals of care w/ POA Appreciate consultation; will follow with you.
[2016-11-25] MEDS: DOXYCYCLINE HYCLATE 100 MG CAP PO SCH (21:18)
[2016-11-26] VITALS (15 sets, daily range): BP systolic 141–163; BP diastolic 52–69; PULSE 54–65; TEMP 36.2–37; O2SAT 96–100
[2016-11-26] MEDS: HEPARIN SOD 5000 UNIT/0.5 ML CARP SQ SCH ×3 (05:48→20:25)
[2016-11-26 05:57] LABS: HEMATOCRIT 29.9 % (37-47); MEAN CELL VOLUME 101.7 fL (80-100); MEAN CORPUSCULAR HEMOGLOBIN 31.6 pg (25-34); MEAN CORPUSCULAR HGB CONC 31.1 g/dl (32-36); MEAN PLATELET VOLUME 9.7 fL (7.4-10.4); PLATELET COUNT 140 K/uL (130-400); RED BLOOD COUNT 2.94 M/uL (4.2-5.4); WHITE BLOOD COUNT 7.03 K/uL (4.8-10.8)
[2016-11-26 06:37] LABS: BUN/CREATININE RATIO 38.7 (10-20); CALCIUM 9.1 mg/dl (8.5-10.1); CREATININE 2.5 mg/dl (0.60-1.20); POTASSIUM 3.8 mmol/L (3.5-5.1)
[2016-11-26] MEDS: ALBUT/IPRATROP 3MG/0.5MG NEB 3 ML VIAL INH SCH ×4 (08:28→19:07)
[2016-11-26] MEDS: DOXYCYCLINE HYCLATE 100 MG CAP PO SCH (08:50)
[2016-11-26] MEDS: PANTOprazole SOD 40 MG TAB PO SCH (08:51)
[2016-11-26] MEDS: MULTIVITAMIN TAB PO SCH (08:51)
[2016-11-26] MEDS: AMLODIPINE BESYLATE 5 MG TAB PO SCH (08:52)
[2016-11-26] MEDS: CITALOPRAM 20 MG TAB PO SCH (08:52)
[2016-11-26] MEDS: FERROUS SULFATE 325 MG TAB PO SCH (08:52)
[2016-11-26] MEDS: ISOSORBIDE MONONITRATE 30 MG TABCR PO SCH (08:52)
[2016-11-26] MEDS: CHOLECALCIFEROL 1000 INTER.UNIT TAB PO SCH (08:53)
[2016-11-26] MEDS: CYANOCOBALAMIN 500 MCG TAB (VIT B-12) PO SCH (08:53)
[2016-11-26] MEDS: BUDESONIDE/FORMOTEROL FUMARATE 80/4.5 60 PUFFS/INHALER INH SCH ×2 (09:10→20:20)
--- NOTE | 2016-11-26 09:25 | Progress Note ---
Medicine Progress Note Date & Time of Visit: Nov 26, 2016 at 09:19. Subjective patient seen sitting up in bed, in good spirits states breathing is fine, cough improved no abdominal pain, nausea, fever/chills denies other symptoms Objective Last 8 Hrs Date Time Temp Pulse Resp B/P Pulse Ox O2 Delivery O2 Flow Rate FiO2 11/26/16 08:35 36.7 55 20 149/69 96 Nasal Cannula 2.0 11/26/16 07:00 61 16 98 Nasal Cannula 2.0 11/26/16 04:05 96 Nasal Cannula 2.0 11/26/16 03:56 36.5 62 18 159/67 98 Nasal Cannula 2.0 Physical Exam: General- oriented x 3, not in distress, speaks in sentences with no effort Eyes- anicteric Lungs-mild rales bilateral bases Heart-normal rate, regular rhythm; no murmurs Abdomen- normal bowel sounds, soft, nontender Extremities- no pretibial edema, no calf tenderness Neuro- alert, oriented x 3;no gross deficits Skin- warm & dry Laboratory Results: Last 24 Hours Test 11/26/16 05:29 White Blood Count 7.03 K/uL Red Blood Count 2.94 M/uL Hemoglobin 9.3 g/dL Hematocrit 29.9 % Mean Corpuscular Volume 101.7 fL Mean Corpuscular Hemoglobin 31.6 pg Mean Corpuscular Hemoglobin Concent 31.1 g/dl RDW Standard Deviation 48.7 fL RDW Coefficient of Variation 13.2 % Platelet Count 140 K/uL Mean Platelet Volume 9.7 fL Sodium Level 139 mmol/L Potassium Level 3.8 mmol/L Chloride Level 93 mmol/L Carbon Dioxide Level 40 mmol/L Anion Gap 6.0 mmol/L Blood Urea Nitrogen 97 mg/dl Creatinine 2.50 mg/dl Est Creatinine Clear Calc Drug Dose 22.4 ml/min Estimated GFR () 21.2 Estimated GFR (Non- 18.3 BUN/Creatinine Ratio 38.7 Random Glucose 97 mg/dl Calcium Level 9.1 mg/dl Assessment & Plan 76 year old female with history of Chronic Respiratory Failure on 3 liters o2, COPD, CHF Diastolic, Aortic Stenosis, HTN, CKD 4 presenting with shortness of breath. ACUTE ON CHRONIC HYPERCAPNIC, HYPOXIC RESPIRATORY FAILURE DUE TO COPD EXACERBATION - VBG showed CO2 100, pH 7.24 - patient declined ABG and BiPap - CXR no obvious pneumonia - improved back to baseline 3 liters nasal cannula - received Doxycycline Day 3- change to Levaquin to also cover for Klebsiella UTI , Solumedrol changed to Prednisone Nebs , Symbicort d/c Singulair - appreciate Pulmonary consult LUIS ON CKD STAGE IV - likely prerenal - possible progression of CKD - baseline creat ~ 2.2 - up to 3.0 held Lasix - crea improved to 2.5 - (+) rales today resume low dose lasix 20mg daily - appreciate Nephro consult BRADYCARDIA - resolved - HR 40s on admission - d/c Carvedilol HTN - Carvedilol held BP on the high side added Hydralazine 25mg po BID - continued isosorbide and amlodipine - BP improving - monitor DIASTOLIC CHF, AORTIC STENOSIS - Lasix held - echo 09/2015 - moderate , mild MR and TR - (+) rales today resume lasix but lower dose to 20mg for now UTI Klebsiella - urine culture (+) Klebsiella - start Levaquin Day 1 DVT PROPHYLAXIS - SQ Heparin CODE STATUS - Patient is a DNR DISPO pending PT OT eval ordered: recommend return home possible d/c tomorrow lives at home with Current Inpatient Medications: Current Inpatient Medications Medications (Trade) Dose Ordered Sig/Pieter Route Start Time Stop Time Status Last Admin Dose Admin Heparin Sodium (Porcine) (Heparin Sq 5000 Unit/0.5ml) 5,000 unit Q8 SQ 11/23/16 22:00 12/23/16 21:59 11/26/16 05:48 5,000 UNIT Acetaminophen (Tylenol Tab) 650 mg Q4H PRN PO 11/23/16 20:15 12/23/16 20:14 11/24/16 23:52 650 MG Ondansetron HCl (Zofran Inj) 4 mg Q6H PRN IV 11/23/16 20:15 12/23/16 20:14 Amlodipine Besylate (Norvasc Tab) 10 mg QAM PO 11/24/16 09:00 12/24/16 08:59 11/26/16 08:52 10 MG Citalopram Hydrobromide (celeXA TAB) 20 mg DAILY PO 11/24/16 09:00 12/24/16 08:59 11/26/16 08:52 20 MG Isosorbide Mononitrate (Imdur Ext Rel Tab) 30 mg DAILY PO 11/24/16 09:00 12/24/16 08:59 11/26/16 08:52 30 MG Multivitamins (Multivitamin Tab) 1 tab DAILY PO 11/24/16 09:00 12/24/16 08:59 11/26/16 08:51 1 TAB Cholecalciferol (Vitamin D Tab) 5,000 inter.unit QAM PO 11/24/16 09:00 12/24/16 08:59 11/26/16 08:53 5,000 INTER.UNIT Cyanocobalamin (Vitamin B-12 Tab) 1,000 mcg DAILY PO 11/24/16 09:00 12/24/16 08:59 11/26/16 08:53 1,000 MCG Ferrous Sulfate (Feosol Tab) 325 mg DAILY PO 11/24/16 09:00 12/24/16 08:59 11/26/16 08:52 325 MG Pantoprazole Sodium (Protonix Tab) 40 mg DAILY PO 11/24/16 09:00 12/24/16 08:59 11/26/16 08:51 40 MG Budesonide/ Formoterol Fumarate (Symbicort 80/ 4.5 Inh) 2 puffs BID INH 11/24/16 09:00 12/24/16 08:59 11/26/16 09:10 2 PUFFS Albuterol/ Ipratropium (Duoneb) 3 ml QIDR INH 11/24/16 08:00 12/24/16 07:59 11/26/16 08:28 3 ML Tramadol HCl (Ultram Tab) 50 mg Q8H PRN PO 11/24/16 20:45 12/24/16 20:44 Trazodone HCl (Desyrel Tab) 50 mg HS PO 11/25/16 03:45 12/25/16 03:44 11/25/16 21:18 50 MG Prednisone (PredniSONE TAB) 30 mg DAILY PO 11/26/16 09:00 12/26/16 08:59 11/26/16 08:50 30 MG Hydralazine HCl (Apresoline Tab) 25 mg BID PO 11/25/16 21:00 12/25/16 20:59 11/26/16 08:49 25 MG Doxycycline Hyclate (Vibramycin Cap) 100 mg BID PO 11/25/16 21:00 11/30/16 22:59 11/26/16 08:50 100 MG
[2016-11-26] MEDS ORDERED: FUROSEMIDE 20 MG TAB PO ONE (09:27)
[2016-11-26] MEDS ORDERED: LEVOFLOXACIN CONSULT ACTIVE PRN (09:30)
[2016-11-26] MEDS ORDERED: LEVOFLOXACIN 500MG / D5W IV ONE (10:00)
--- NOTE | 2016-11-26 10:25 | Nephrology Progress Note ---
Nephrology Progress Note Date of Service: Nov 26, 2016. Subjective very tired this am and withdrawn. she continues to refuse bipap. no pain; denies dyspnea. answers y/n questions w/o opening eyes. Objective Date Time Temp Pulse Resp B/P Pulse Ox O2 Delivery O2 Flow Rate FiO2 11/26/16 08:35 36.7 55 20 149/69 96 Nasal Cannula 2.0 11/26/16 08:15 97 Nasal Cannula 2.0 11/26/16 07:00 61 16 98 Nasal Cannula 2.0 11/26/16 04:05 96 Nasal Cannula 2.0 11/26/16 03:56 36.5 62 18 159/67 98 Nasal Cannula 2.0 11/26/16 00:10 Nasal Cannula 2.0 11/26/16 00:00 36.2 65 20 152/65 96 Nasal Cannula 2.0 11/25/16 20:45 95 Nasal Cannula 2.0 11/25/16 19:50 36.8 63 18 158/64 95 Nasal Cannula 2.0 11/25/16 19:14 65 16 97 Nasal Cannula 2.0 11/25/16 16:00 100 Nasal Cannula 3.0 11/25/16 15:15 69 18 96 Nasal Cannula 2.0 11/25/16 15:15 36.6 59 20 170/65 100 Nasal Cannula 3.0 11/25/16 12:00 97 Nasal Cannula 3.0 11/25/16 11:50 64 18 99 Nasal Cannula 3.0 11/25/16 10:57 36.5 63 20 201/75 99 Nasal Cannula 3.0 Physical Exam: General Appearance: no apparent distress, + obese (on 02NC), lying flat, affect as above Eyes: EOMI ENT: + pertinent finding (hard of hearing) Neck: supple Respiratory/Chest: no respiratory distress, no accessory muscle use, + decreased breath sounds Cardiovascular: regular rate, rhythm Abdomen: non tender, soft Extremities: + pedal edema, + swelling (1+) Neurologic/Psych: alert, + motor weakness, + pertinent finding (lethargic but clear about what she wants) Skin: warm/dry, no rash Current Inpatient Medications Medications (Trade) Dose Ordered Sig/Pieter Route Start Time Stop Time Status Last Admin Dose Admin Heparin Sodium (Porcine) (Heparin Sq 5000 Unit/0.5ml) 5,000 unit Q8 SQ 11/23/16 22:00 12/23/16 21:59 11/26/16 05:48 5,000 UNIT Acetaminophen (Tylenol Tab) 650 mg Q4H PRN PO 11/23/16 20:15 12/23/16 20:14 11/24/16 23:52 650 MG Ondansetron HCl (Zofran Inj) 4 mg Q6H PRN IV 11/23/16 20:15 12/23/16 20:14 Amlodipine Besylate (Norvasc Tab) 10 mg QAM PO 11/24/16 09:00 12/24/16 08:59 11/26/16 08:52 10 MG Citalopram Hydrobromide (celeXA TAB) 20 mg DAILY PO 11/24/16 09:00 12/24/16 08:59 11/26/16 08:52 20 MG Isosorbide Mononitrate (Imdur Ext Rel Tab) 30 mg DAILY PO 11/24/16 09:00 12/24/16 08:59 11/26/16 08:52 30 MG Multivitamins (Multivitamin Tab) 1 tab DAILY PO 11/24/16 09:00 12/24/16 08:59 11/26/16 08:51 1 TAB Cholecalciferol (Vitamin D Tab) 5,000 inter.unit QAM PO 11/24/16 09:00 12/24/16 08:59 11/26/16 08:53 5,000 INTER.UNIT Cyanocobalamin (Vitamin B-12 Tab) 1,000 mcg DAILY PO 11/24/16 09:00 12/24/16 08:59 11/26/16 08:53 1,000 MCG Ferrous Sulfate (Feosol Tab) 325 mg DAILY PO 11/24/16 09:00 12/24/16 08:59 11/26/16 08:52 325 MG Pantoprazole Sodium (Protonix Tab) 40 mg DAILY PO 11/24/16 09:00 12/24/16 08:59 11/26/16 08:51 40 MG Budesonide/ Formoterol Fumarate (Symbicort 80/ 4.5 Inh) 2 puffs BID INH 11/24/16 09:00 12/24/16 08:59 11/26/16 09:10 2 PUFFS Albuterol/ Ipratropium (Duoneb) 3 ml QIDR INH 11/24/16 08:00 12/24/16 07:59 11/26/16 08:28 3 ML Tramadol HCl (Ultram Tab) 50 mg Q8H PRN PO 11/24/16 20:45 12/24/16 20:44 Trazodone HCl (Desyrel Tab) 50 mg HS PO 11/25/16 03:45 12/25/16 03:44 11/25/16 21:18 50 MG Prednisone (PredniSONE TAB) 30 mg DAILY PO 11/26/16 09:00 12/26/16 08:59 11/26/16 08:50 30 MG Hydralazine HCl (Apresoline Tab) 25 mg BID PO 11/25/16 21:00 12/25/16 20:59 11/26/16 08:49 25 MG Levofloxacin 1 ea 1 ea UD PRN N/A 11/26/16 09:30 12/26/16 09:29 Levofloxacin/Prmx (Levaquin / D5W/ Premixed D5W) 100 ml @ 100 mls/hr 1000 ONCE IV 11/26/16 10:00 11/26/16 10:59 Furosemide (Lasix Tab) 20 mg QAM PO 11/27/16 09:00 12/27/16 08:59 Last 24 Hours Test 11/26/16 05:29 White Blood Count 7.03 K/uL Red Blood Count 2.94 M/uL Hemoglobin 9.3 g/dL Hematocrit 29.9 % Mean Corpuscular Volume 101.7 fL Mean Corpuscular Hemoglobin 31.6 pg Mean Corpuscular Hemoglobin Concent 31.1 g/dl RDW Standard Deviation 48.7 fL RDW Coefficient of Variation 13.2 % Platelet Count 140 K/uL Mean Platelet Volume 9.7 fL Sodium Level 139 mmol/L Potassium Level 3.8 mmol/L Chloride Level 93 mmol/L Carbon Dioxide Level 40 mmol/L Anion Gap 6.0 mmol/L Blood Urea Nitrogen 97 mg/dl Creatinine 2.50 mg/dl Est Creatinine Clear Calc Drug Dose 22.4 ml/min Estimated GFR () 21.2 Estimated GFR (Non- 18.3 BUN/Creatinine Ratio 38.7 Random Glucose 97 mg/dl Calcium Level 9.1 mg/dl Assessment & Plan 76 y/o F w/ advanced CKD, chronic respiratory failure on longstanding 02nc 3L, chronic diastolic HF reported, admitted 11/23 with acute on chronic hypercapneic respiratory failure and copd exacerbation, worsening renal function on baseline CKD4, bradycardia w/ HR in 40s. prerenal LUIS on CKD 4/5 versus CKD 4/5 progression w/ unknown baseline >> progressive CKD already notable last January; her baseline creatinine last January was 1.8 (eGFR 28); also with creatinine 2.6 on last labs 06/2016. Since then she had refused further lab work per report in . Her serum chemistries are acceptable here at [facility]. her urine specimen from admission is contaminated but UA and urine cx c/w K pneiae (had doxyclcine several days for this); no voiding sx at OV -daily bmp -improved w/ gentle but limited hydration and tx of uti; would not hydrate more at this time -avoid nephrotoxins -no acute indication for dialysis and she desires only conservative mgt of esrd / no chronic or acute dialysis. not even clear if she will f/u w/ me in clinic but I do recommend this to optimize renal function while avoiding dialysis <<>> only works if she gets labs though which she has declined to do in the past -strict I/O HTN -agree w/ amlodipine, hydralyzine -continue renal diet -agree w/ holding BB and for now diuretic though likely to need to resume the latter soon -consider prn hydralazine Anemia of chronic disease macrocytic anemia, not unexpected w/ gastroplasty hx >will check iron stores and consider epo as indicated, though w/ lack of f/u not likely to continue this after d/c Bradycardia -longstanding issue > HR in low 50s last January; per primary service; note HR remains improved off of BB COPD/Acute on chronic hypercapneic respiratory failure -per primary service and pulmonary ?baseline cognitive and emotional status >careful assessment for depression; low threshold for psych eval if behavior no different after infectious / pulmonary issues adequately addressed -may need to clarify goals of care w/ POA Appreciate consultation; will follow with you.
[2016-11-26] MEDS: TRAZODONE HCL 50 MG TAB PO SCH (20:21)
[2016-11-27] VITALS (8 sets, daily range): BP systolic 158–170; BP diastolic 60–79; PULSE 56–89; TEMP 36.7–37; O2SAT 65–98
[2016-11-27] MEDS: HEPARIN SOD 5000 UNIT/0.5 ML CARP SQ SCH ×2 (05:44→14:12)
[2016-11-27] MEDS: ALBUT/IPRATROP 3MG/0.5MG NEB 3 ML VIAL INH SCH ×3 (06:53→15:10)
[2016-11-27 07:06] LABS: BUN/CREATININE RATIO 37.7 (10-20); CALCIUM 9.1 mg/dl (8.5-10.1); CREATININE 2.6 mg/dl (0.60-1.20); POTASSIUM 3.7 mmol/L (3.5-5.1)
--- NOTE | 2016-11-27 07:53 | PULMONARY PROGRESS NOTE ---
DATE: 11/27/2016 HISTORY OF PRESENT ILLNESS: The patient is comfortable lying completely flat today. States she has been declining the use of BiPAP. She denies cough or chest pain or shortness of breath. States she started to go home. Nephrology notes appreciated. She has had some urinary incontinence, denies cough or chest pain. Hemodynamically, she has been stable. Apparently, she has had some bradycardia as well. MEDICATIONS: Reviewed. PHYSICAL EXAMINATION: VITAL SIGNS: Stable. Her blood pressure remains elevated at 170/60, but that is appropriate, respiratory rate 20, oxygen saturation 93% on 2 liters. I\T\O is 695 in and unknown amounts out. Weight 102.5 kilograms. That is about the same as it was on the . NECK: There is no neck vein distention or HJR. HEART: Regular rate and rhythm with 2/6 systolic murmur heard at the apex. LUNGS: Reveal decreased breath sounds, otherwise are clear. ABDOMEN: Soft and obese, nontender. EXTREMITIES: She has no cyanosis, clubbing or edema. LABORATORY DATA: White count 7.03 yesterday, hemoglobin 9.3, platelet count was increased to 140,000. PRP shows a BUN of 97, creatinine at 2.5, again consistent with some prerenal azotemia. Blood gas on the revealed pH 7.31, pCO2 of 79, pO2 of 80 on 2 liters. Urine revealed some gram negative bacteria, Klebsiella had grown out on the . Urinalysis did have a few inflammatory cells as well. IMPRESSION: 1. Respiratory failure. 2. Chronic obstructive lung disease with exacerbation. 3. Urinary tract infection. PLAN: 1. Continue with her present medications. 2. Decrease the prednisone at 20 mg daily, and taper that down over about 10 days. 3. I will try to encourage the patient to use the CPAP at night. I discussed this with her at great length and she is declining, states she feels well now. Overall, from a pulmonary standpoint, she is stable.
[2016-11-27] MEDS: BUDESONIDE/FORMOTEROL FUMARATE 80/4.5 60 PUFFS/INHALER INH SCH (08:21)
[2016-11-27] MEDS: ISOSORBIDE MONONITRATE 30 MG TABCR PO SCH (08:21)
[2016-11-27] MEDS: MULTIVITAMIN TAB PO SCH (08:22)
[2016-11-27] MEDS: CHOLECALCIFEROL 1000 INTER.UNIT TAB PO SCH (08:23)
[2016-11-27] MEDS: CITALOPRAM 20 MG TAB PO SCH (08:23)
[2016-11-27] MEDS: FERROUS SULFATE 325 MG TAB PO SCH (08:23)
[2016-11-27] MEDS: AMLODIPINE BESYLATE 5 MG TAB PO SCH (08:23)
[2016-11-27] MEDS: CYANOCOBALAMIN 500 MCG TAB (VIT B-12) PO SCH (08:23)
[2016-11-27] MEDS: PANTOprazole SOD 40 MG TAB PO SCH (08:24)
[2016-11-27] MEDS ORDERED: FUROSEMIDE 20 MG TAB PO SCH (09:00)
[2016-11-27] MEDS ORDERED: LEVOFLOXACIN 250 MG TAB PO SCH (11:00)
--- NOTE | 2016-11-27 16:51 | Progress Note ---
Medicine Progress Note Date & Time of Visit: Nov 27, 2016 at 16:37. Subjective seen resting in bed, comfortable, alert denies chest pain, dyspnea, palpitations, dizziness, headache no abdominal pain, nausea, fever/chills, dysuria ambulates with no problems states she is back to baseline states she feels well overall and would like to be discharged today Objective Last 8 Hrs Date Time Temp Pulse Resp B/P Pulse Ox O2 Delivery O2 Flow Rate FiO2 11/27/16 15:57 36.9 57 20 164/68 96 Room Air 11/27/16 12:07 36.7 86 20 158/79 94 11/27/16 12:00 Nasal Cannula 2.0 11/27/16 11:08 58 16 96 Nasal Cannula 2.0 Physical Exam: General- oriented x 3, not in distress, speaks in sentences with no effort Eyes- anicteric Lungs-mild rales bilateral bases, no wheezes, good air entry bilaterally Heart-normal rate, regular rhythm; no murmurs Abdomen- normal bowel sounds, soft, nontender Extremities- no pretibial edema, no calf tenderness Neuro- alert, oriented x 3;no gross deficits Skin- warm & dry Laboratory Results: Last 24 Hours Test 11/27/16 05:50 Sodium Level 138 mmol/L Potassium Level 3.7 mmol/L Chloride Level 94 mmol/L Carbon Dioxide Level 38 mmol/L Anion Gap 6.0 mmol/L Blood Urea Nitrogen 98 mg/dl Creatinine 2.60 mg/dl Est Creatinine Clear Calc Drug Dose 21.3 ml/min Estimated GFR () 20.2 Estimated GFR (Non- 17.5 BUN/Creatinine Ratio 37.7 Random Glucose 94 mg/dl Calcium Level 9.1 mg/dl Iron Level 78 mcg/dl Total Iron Binding Capacity 245 mcg/dl Transferrin 202 mg/dl Transferrin % Saturation 28 % Assessment & Plan 76 year old female with history of Chronic Respiratory Failure on 3 liters o2, COPD, CHF Diastolic, Aortic Stenosis, HTN, CKD 4 presenting with shortness of breath. ACUTE ON CHRONIC HYPERCAPNIC, HYPOXIC RESPIRATORY FAILURE DUE TO COPD EXACERBATION - VBG showed CO2 100, pH 7.24 - patient declined ABG and BiPap - CXR no obvious pneumonia - improved back to baseline 3 liters nasal cannula - received Doxycycline Day 3- change to Levaquin to also cover for Klebsiella UTI , Solumedrol changed to Prednisone Nebs , Symbicort d/c Celestina - appreciate Pulmonary consult -- patient improved overall continue Prednisone tapering course, Levaquin, and Symbicort ff up with PCP next week LUIS ON CKD STAGE IV - likely prerenal with possible progression of CKD - baseline creat ~ 2.2 - up to 3.0 held Lasix - crea improved to 2.5 - (+) mild rales resume lasix but lower dose to 40mg po daily (usually BID) - Nephro consulted- Dr. Forrester patient may need HD in the future but patient declining at this time will need repeat Crea on ff up with PCP and close Nephro ff up BRADYCARDIA - resolved - HR 40s on admission - discontinued Carvedilol HR improved to 60s HTN - Carvedilol held due to bradycardia BP on the high side added Hydralazine 25mg po BID - continued isosorbide and amlodipine - BP improving - monitor as outpatient DIASTOLIC CHF, AORTIC STENOSIS - Lasix held - echo 09/2015 - moderate , mild MR and TR - (+) mild rales resumed lasix but lower dose to 40mg po daily (usually BID) UTI Klebsiella - urine culture (+) Klebsiella - started Levaquin PO - continue Levaquin 250mg x 3 more days to complete 5 days DVT PROPHYLAXIS - SQ Heparin given CODE STATUS - Patient is a DNR DISPO pending PT OT eval ordered: recommend return home d/c home today ff up with PCP next week ff up with Dr. Forrester [employer] in 1-2 weeks Current Inpatient Medications: Current Inpatient Medications Medications (Trade) Dose Ordered Sig/Pieter Route Start Time Stop Time Status Last Admin Dose Admin Heparin Sodium (Porcine) (Heparin Sq 5000 Unit/0.5ml) 5,000 unit Q8 SQ 11/23/16 22:00 12/23/16 21:59 11/27/16 14:12 5,000 UNIT Acetaminophen (Tylenol Tab) 650 mg Q4H PRN PO 11/23/16 20:15 12/23/16 20:14 11/24/16 23:52 650 MG Ondansetron HCl (Zofran Inj) 4 mg Q6H PRN IV 11/23/16 20:15 12/23/16 20:14 Amlodipine Besylate (Norvasc Tab) 10 mg QAM PO 11/24/16 09:00 12/24/16 08:59 11/27/16 08:23 10 MG Citalopram Hydrobromide (celeXA TAB) 20 mg DAILY PO 11/24/16 09:00 12/24/16 08:59 11/27/16 08:23 20 MG Isosorbide Mononitrate (Imdur Ext Rel Tab) 30 mg DAILY PO 11/24/16 09:00 12/24/16 08:59 11/27/16 08:21 30 MG Multivitamins (Multivitamin Tab) 1 tab DAILY PO 11/24/16 09:00 12/24/16 08:59 11/27/16 08:22 1 TAB Cholecalciferol (Vitamin D Tab) 5,000 inter.unit QAM PO 11/24/16 09:00 12/24/16 08:59 11/27/16 08:23 5,000 INTER.UNIT Cyanocobalamin (Vitamin B-12 Tab) 1,000 mcg DAILY PO 11/24/16 09:00 12/24/16 08:59 11/27/16 08:23 1,000 MCG Ferrous Sulfate (Feosol Tab) 325 mg DAILY PO 11/24/16 09:00 12/24/16 08:59 11/27/16 08:23 325 MG Pantoprazole Sodium (Protonix Tab) 40 mg DAILY PO 11/24/16 09:00 12/24/16 08:59 11/27/16 08:24 40 MG Budesonide/ Formoterol Fumarate (Symbicort 80/ 4.5 Inh) 2 puffs BID INH 11/24/16 09:00 12/24/16 08:59 11/27/16 08:21 2 PUFFS Albuterol/ Ipratropium (Duoneb) 3 ml QIDR INH 11/24/16 08:00 12/24/16 07:59 11/27/16 11:07 3 ML Tramadol HCl (Ultram Tab) 50 mg Q8H PRN PO 11/24/16 20:45 12/24/16 20:44 Trazodone HCl (Desyrel Tab) 50 mg HS PO 11/25/16 03:45 12/25/16 03:44 11/26/16 20:21 50 MG Prednisone (PredniSONE TAB) 30 mg DAILY PO 11/26/16 09:00 12/26/16 08:59 11/27/16 08:22 30 MG Hydralazine HCl (Apresoline Tab) 25 mg BID PO 11/25/16 21:00 12/25/16 20:59 11/27/16 08:21 25 MG Levofloxacin (Consult) 1 ea UD PRN N/A 11/26/16 09:30 12/26/16 09:29 Furosemide (Lasix Tab) 20 mg QAM PO 11/27/16 09:00 12/27/16 08:59 11/27/16 08:22 20 MG Levofloxacin (Levaquin Tab) 250 mg DAILY@11 PO 11/27/16 11:00 12/03/16 10:59 11/27/16 11:51 250 MG
[2016-11-27] MEDS ORDERED: LVQ250 PO (16:56)
[2016-11-27] MEDS ORDERED: PRD10 PO (16:56)
[2016-11-27] MEDS ORDERED: APR25 PO (16:56)
[2016-11-27] MEDS ORDERED: LSX20 PO (16:56)
[2016-11-27] MEDS ORDERED: OXGN (16:56)
[2016-11-27] MEDS ORDERED: SYMIN8045 INH (16:56)
--- NOTE | 2016-11-27 17:02 | Discharge Instructions ---
Discharge Instructions Date of Service Nov 27, 2016. Admission Reason for Admission: Acute On Chronic Respiratory Failure Discharge Discharge Diagnosis / Problem: ACUTE EXACERBATION OF COPD Discharge Goals Goal(s): Diagnostic testing, Therapeutic intervention Activity Recommendations Activity Limitations: as noted below (NO HEAVY EXERTION UNTIL RE-EVALUATED BY PRIMARY CARE PHYSICIAN) . Instructions / Follow-Up Instructions / Follow-Up PLEASE REVIEW YOUR NEW MEDICATION LIST AND FOLLOW INSTRUCTIONS CAREFULLY. CALL PRIMARY CARE PHYSICIAN OR RETURN TO ER IMMEDIATELY IF WITH RECURRENCE OF SYMPTOMS. FOLLOW UP WITH DR. COOPER ON DECEMBER 02, 2016 AT 8:45 AM[address] FOLLOW UP WITH [address]. MEDEL (KIDNEY SPECIALIST) IN 1-2 WEEKS. TEL. NO. . Call your Primary Care doctor if any of the following symptoms or problems start or get worse: * Shortness of breath or difficulty breathing * Wake up at night short of breath * Chest pain * Cough * Swelling of your hands, feet, or legs * More fatigued or tired with your normal activity * Palpitations - sudden fast heart beats WEIGHT * Weigh yourself every morning after using the bathroom. * Use the same scale. * Wear the same amount of clothing. * Write your weight down on a chart. * Call your Primary Care doctor if you gain more than 2-3 pounds in 1-2 days. MEDICATIONS * Use this discharge instruction sheet for medication instructions. * Take your medications at the time your doctor ordered. * Do not skip a dose of your medicines. * If you miss a dose of medicine, take it as soon as possible, but DO NOT DOUBLE A DOSE. * Read your medicine information when you get home. * Know all of the side effects of your medicine. If in doubt, ask your pharmacist * Call your Primary Care doctor's office if you have any side effects. * Be sure all of your doctors know what medicine and herbs you take (including cold, flu, and herbal medicine). Take the following with you to your follow-up doctor appointments: * Weight Chart * Medication List * List of questions Do not drink excessive alcohol, beer or wine. Current Hospital Diet Patient's current hospital diet: AHA Diet (Heart Healthy), Renal Diet, Low Sodium Diet (2gm Na) Discharge Diet Recommended Diet: AHA Diet (Heart Healthy) Fluid Restriction: 1500 ml (6 cups) Pending Studies Studies pending at discharge: yes (REPEAT BLOOD WORK (PRP) ON FOLLOW UP WITH PRIMARY CARE PHYSICIAN) List of pending studies: REPEAT BLOOD WORK (PRP) ON FOLLOW UP WITH PRIMARY CARE PHYSICIAN Laboratory Results Hemoglobin A1c Test 11/23/16 16:50 Range/Units Estimated Average Glucose 114 mg/dl Hemoglobin A1c 5.6 4.5-5.6 % Medical Emergencies . Who to Call and When: Call 911 or go to the Emergency Room if: * If at any time you feel your situation is an emergency * You have tightness or pain in your chest that does not go away with rest or Nitroglycerin * You are very short of breath even with rest . Non-Emergent Contact Non-Emergency issues call your: Primary Care Provider Call Non-Emergent contact if: you have a fever, you have any medication questions . Past History Medical & Surgical History: (1) Acute respiratory failure with hypoxia (2) Osteoarthritis (3) GERD (gastroesophageal reflux disease) (4) Depression with anxiety (5) COPD (chronic obstructive pulmonary disease) (6) Respiratory failure with hypoxia (7) Dyslipidemia (8) Diastolic CHF (9) Hypothyroidism (10) Anemia due to chronic kidney disease (11) CKD (chronic kidney disease), stage IV (12) HTN (hypertension) (13) Aortic stenosis (14) S/P gastric bypass (15) History of appendectomy (16) Hx of tonsillectomy (17) Hx of cholecystectomy (18) History of hysterectomy . "Provider Documentation" section prepared by Abraham Reis. VTE Core Measure Inpt VTE Proph given/why not?: Unfractionated heparin SQ
--- NOTE | 2016-11-28 18:48 | Discharge Summary ---
Discharge Summary Date of Service Nov 28, 2016. Discharge Summary Admission Date: Nov 23, 2016 at 20:06 Discharge Date: Nov 27, 2016 Discharge Disposition: Home with services Principal Diagnosis: ACUTE ON CHRONIC HYPERCAPNIC, HYPOXIC RESPIRATORY FAILURE DUE TO COPD EXACERBATION Secondary Diagnoses/Problems: PLEASE REFER TO HOSPITAL COURSE BELOW. Consultations: NEPHROLOGY DR. MEDEL, PULMONARY DR. JARAMILLO Pending Studies/Follow-Up: PLEASE REFER TO HOSPITAL COURSE BELOW. Medication Reconciliation New Medications: Budesonide/Formoterol Fumarate (Symbicort 80-4.5 Mcg/Act) 60 Puffs/Inhaler Aero 2 PUFFS INH BID for 30 Days, #1 INHALER 2 Refills Furosemide (Furosemide) 20 Mg Tab 40 MG PO QAM for 30 Days, #60 TAB 2 Refills Hydralazine Hcl (Apresoline) 25 Mg Tab 25 MG PO BID for 30 Days, #60 TAB 2 Refills Levofloxacin (Levofloxacin) 250 Mg Tab 250 MG PO DAILY@11 for 3 Days, #3 TAB 0 Refills Prednisone (Prednisone) 10 Mg Tab 10 MG PO UD for 7 Days, #10 TAB 0 Refills take 3 tabs po daily x 1 day, then take 2 tabs po daily x 2 days, then take 1 tabs po daily x 2 days, then take 1/2 tab po daily x 2 days, then STOP Changed Medications: Oxygen (Oxygen) Gas 3 LITERS NA CONTINOUS for 30 Days (Changed from: PRN) Continued Medications: Amlodipine Besylate (Amlodipine Besylate) 5 Mg Tab 10 MG PO QAM, #30 TAB Cholecalciferol (Vitamin D3) 5,000 Unit Chw 5000 UNIT PO QAM Citalopram Hydrobromide (Celexa) 20 Mg Tab 20 MG PO DAILY, TAB Cyanocobalamin (Vitamin B12) 1,000 Mcg Tab 1000 MCG PO DAILY Ferrous Sulfate (Iron) 325 Mg Tab 325 MG PO DAILY Ipratropium-Albuterol (Duoneb) 3 Ml Nebu 1 TREATMENT INH Q4H PRN for SOB/Wheezing, INHA Isosorbide Mononitrate (Isosorbide Mononitrate ER) 30 Mg Tabcr 30 MG PO DAILY Menthol-Zinc Oxide (Calmoseptine) 1 Oin Oin 1 APPLN TOP DAILY PRN for PRN Multivitamin (Multivitamin) Tab 1 TAB PO DAILY, TAB Omeprazole (Prilosec) 20 Mg Capcr 20 MG PO DAILY, CAP Trazodone Hcl (Trazodone) 50 Mg Tab 50 MG PO HS, TAB Discontinued Medications: Carvedilol (Carvedilol) 6.25 Mg Tab 6.25 MG PO BIDM Furosemide (Lasix) 40 Mg Tab 40 MG PO BID, TAB Metolazone (Zaroxolyn) 2.5 Mg Tab 2.5 MG PO DAILY, TAB Montelukast Sod (Montelukast Sodium) 10 Mg Tab 10 MG PO DAILY, #90 Admission Information HPI (per Admitting provider): 76 year old female who presents to the ER by referral of her PCP for shortness of breath and hypoxia. Patient does not provide much history. She recently has had increasing shortness of breath. Today she was at her PCP's office who found her oxygen levels to be 71% on her chronic 3L. She was then referred to the ER for further evaluation. Patient denies cough or sputum production. No fever or chills. She denies chest pain or palpitations. No lightheadedness, dizziness, diaphoresis, or syncopal events. No abdominal pain, nausea, vomiting, or diarrhea. She denies urinary symptoms. In the ER, patient was 64% on 3L which improved after nebulizer, solumedrol, and increasing oxygen to 6L. She refused ABG but VBG showed pH 7.24 and CO2 100. She is also refusing BiPap. Throughout my exam, patient is alert and awake and persistently asking for food. Physical Exam (per Admitting): General Appearance: no apparent distress Head: normocephalic Eyes: normal inspection ENT: hearing grossly normal Neck: supple, no JVD Respiratory/Chest: no respiratory distress, + decreased breath sounds (poor air movement BL), + crackles (BL bases) Cardiovascular: + bradycardia (HR in the 40s), + pertinent finding (trace edema BLLE) Abdomen/GI: normal bowel sounds, non tender, soft Extremities/Musculoskelatal: normal inspection, no calf tenderness Neurologic/Psych: no motor/sensory deficits, alert, normal mood/affect, oriented x 3 Skin: normal color, warm/dry Hospital Course 76 year old female with history of Chronic Respiratory Failure on 3 liters o2, COPD, CHF Diastolic, Aortic Stenosis, HTN, CKD 4 presenting with shortness of breath. ACUTE ON CHRONIC HYPERCAPNIC, HYPOXIC RESPIRATORY FAILURE DUE TO COPD EXACERBATION - VBG showed CO2 100, pH 7.24 - patient declined ABG and BiPap - CXR no obvious pneumonia - improved back to baseline 3 liters nasal cannula - received Doxycycline X 3 days, then changed to Levaquin to also cover for Klebsiella UTI , Solumedrol changed to Prednisone taper given Nebs , Symbicort discontinued Celestina Jaramillo- Operator Receptionist consulted -- patient improved overall continue Prednisone tapering course, Levaquin, and Symbicort ff up with PCP next week LUIS ON CKD STAGE IV - likely prerenal with possible progression of CKD - baseline creat ~ 2.2 - up to 3.0 held Lasix - crea improved to 2.5 - (+) mild rales resume lasix but lower dose to 40mg po daily (usually BID) - Nephro consulted- Dr. Medel patient may need HD in the future but patient declining at this time will need repeat Crea on ff up with PCP and close Nephro ff up BRADYCARDIA - resolved - HR 40s on admission - discontinued Carvedilol HR improved to 60s - monitor HTN - Carvedilol held due to bradycardia BP on the high side - added Hydralazine 25mg po BID continued isosorbide and amlodipine - BP improving - monitor as outpatient DIASTOLIC CHF, AORTIC STENOSIS - Lasix held - echo 09/2015 - moderate , mild MR and TR - (+) mild rales resumed lasix but lower dose to 40mg po daily (usually BID) UTI Klebsiella - urine culture (+) Klebsiella - started Levaquin PO - continue Levaquin 250mg x 3 more days to complete 5 days DVT PROPHYLAXIS - SQ Heparin given CODE STATUS - Patient is a DNR DISPO PT OT eval ordered: recommend return home d/c home ff up with PCP next week ff up with Dr. Medel Interior Designer in 1-2 weeks Total time spent on discharge = 40 minutes This includes examination of the patient, discharge planning, medication reconciliation, and communication with other providers. Discharge Instructions Discharge Instructions Date of Service Nov 27, 2016. Admission Reason for Admission: Acute On Chronic Respiratory Failure Discharge Discharge Diagnosis / Problem: ACUTE EXACERBATION OF COPD Discharge Goals Goal(s): Diagnostic testing, Therapeutic intervention Activity Recommendations Activity Limitations: as noted below (NO HEAVY EXERTION UNTIL RE-EVALUATED BY PRIMARY CARE PHYSICIAN) . Instructions / Follow-Up Instructions / Follow-Up PLEASE REVIEW YOUR NEW MEDICATION LIST AND FOLLOW INSTRUCTIONS CAREFULLY. CALL PRIMARY CARE PHYSICIAN OR RETURN TO ER IMMEDIATELY IF WITH RECURRENCE OF SYMPTOMS. FOLLOW UP WITH DR. COOPER ON DECEMBER 02, 2016 AT 8:45 AM[address] FOLLOW UP WITH [address]. MEDEL (KIDNEY SPECIALIST) IN 1-2 WEEKS. TEL. NO. . Call your Primary Care doctor if any of the following symptoms or problems start or get worse: * Shortness of breath or difficulty breathing * Wake up at night short of breath * Chest pain * Cough * Swelling of your hands, feet, or legs * More fatigued or tired with your normal activity * Palpitations - sudden fast heart beats WEIGHT * Weigh yourself every morning after using the bathroom. * Use the same scale. * Wear the same amount of clothing. * Write your weight down on a chart. * Call your Primary Care doctor if you gain more than 2-3 pounds in 1-2 days. MEDICATIONS * Use this discharge instruction sheet for medication instructions. * Take your medications at the time your doctor ordered. * Do not skip a dose of your medicines. * If you miss a dose of medicine, take it as soon as possible, but DO NOT DOUBLE A DOSE. * Read your medicine information when you get home. * Know all of the side effects of your medicine. If in doubt, ask your pharmacist * Call your Primary Care doctor's office if you have any side effects. * Be sure all of your doctors know what medicine and herbs you take (including cold, flu, and herbal medicine). Take the following with you to your follow-up doctor appointments: * Weight Chart * Medication List * List of questions Do not drink excessive alcohol, beer or wine. Current Hospital Diet Patient's current hospital diet: AHA Diet (Heart Healthy), Renal Diet, Low Sodium Diet (2gm Na) Discharge Diet Recommended Diet: AHA Diet (Heart Healthy) Fluid Restriction: 1500 ml (6 cups) Pending Studies Studies pending at discharge: yes (REPEAT BLOOD WORK (PRP) ON FOLLOW UP WITH PRIMARY CARE PHYSICIAN) List of pending studies: REPEAT BLOOD WORK (PRP) ON FOLLOW UP WITH PRIMARY CARE PHYSICIAN Laboratory Results Hemoglobin A1c Test 11/23/16 16:50 Range/Units Estimated Average Glucose 114 mg/dl Hemoglobin A1c 5.6 4.5-5.6 % Medical Emergencies . Who to Call and When: Call 911 or go to the Emergency Room if: * If at any time you feel your situation is an emergency * You have tightness or pain in your chest that does not go away with rest or Nitroglycerin * You are very short of breath even with rest . Non-Emergent Contact Non-Emergency issues call your: Primary Care Provider Call Non-Emergent contact if: you have a fever, you have any medication questions . Past History Medical & Surgical History: (1) Acute respiratory failure with hypoxia (2) Osteoarthritis (3) GERD (gastroesophageal reflux disease) (4) Depression with anxiety (5) COPD (chronic obstructive pulmonary disease) (6) Respiratory failure with hypoxia (7) Dyslipidemia (8) Diastolic CHF (9) Hypothyroidism (10) Anemia due to chronic kidney disease (11) CKD (chronic kidney disease), stage IV (12) HTN (hypertension) (13) Aortic stenosis (14) S/P gastric bypass (15) History of appendectomy (16) Hx of tonsillectomy (17) Hx of cholecystectomy (18) History of hysterectomy . "Provider Documentation" section prepared by Abraham Reis. VTE Core Measure Inpt VTE Proph given/why not?: Unfractionated heparin SQ
[2017-01-03] MEDS ORDERED: DSY50 PO (14:39)
[2017-01-03] MEDS ORDERED: NRV5 PO (14:39)
[2017-01-03] MEDS ORDERED: LSX40 PO (14:39)
[2017-01-03] MEDS ORDERED: APR50 PO (14:39)
[2017-01-03] MEDS ORDERED: LVQ500 PO ×2 (14:39→14:57)
[2017-01-03] MEDS ORDERED: PRED10TA PO (14:39)
== END 2016-11-27 18:00 | disposition home health service (06) | DRG 189 ==
LOC: ENRESERVTM → ENRESERVDT → EDBD 16:18 → C.EDB 16:20 → C.2T 20:06 → CANBEDREQ 11-25 13:47
PROVIDERS: ADMIT Hospitalist; ATTEND Internal Medicine
DX: J96.22 Acute and chronic respiratory failure with hypercapnia (principal); N18.6 End stage renal disease; J44.1 Chronic obstructive pulmonary disease with (acute) exacerbation; I13.2 Hypertensive heart and chronic kidney disease with heart failure and with stage 5 chronic kidney disease, or end stage renal disease; I50.32 Chronic diastolic (congestive) heart failure; N17.9 Acute kidney failure, unspecified; N39.0 Urinary tract infection, site not specified; Z68.41 Body mass index [BMI] 40.0-44.9, adult; D63.1 Anemia in chronic kidney disease; J96.21 Acute and chronic respiratory failure with hypoxia; F32.9 Major depressive disorder, single episode, unspecified; F41.9 Anxiety disorder, unspecified; E78.5 Hyperlipidemia, unspecified; K21.9 Gastro-esophageal reflux disease without esophagitis; E03.9 Hypothyroidism, unspecified; M19.90 Unspecified osteoarthritis, unspecified site; Z90.49 Acquired absence of other specified parts of digestive tract; Z90.710 Acquired absence of both cervix and uterus; Z98.84 Bariatric surgery status; Z80.3 Family history of malignant neoplasm of breast; Z87.891 Personal history of nicotine dependence; Z91.040 Latex allergy status; Z88.0 Allergy status to penicillin; Z99.81 Dependence on supplemental oxygen; Z79.899 Other long term (current) drug therapy; R00.1 Bradycardia, unspecified; I08.3 Combined rheumatic disorders of mitral, aortic and tricuspid valves; Z66 Do not resuscitate; B96.1 Klebsiella pneumoniae [K. pneumoniae] as the cause of diseases classified elsewhere; E66.9 Obesity, unspecified; Z99.2 Dependence on renal dialysis; D53.9 Nutritional anemia, unspecified

== ENCOUNTER 2016-12-28 09:02 | Inpatient (IN) | payer OTHER ==
[~2016-12-28] VITALS: Ht 157.5 cm; Wt 110.9 kg
[2016-12-28] VITALS (9 sets, daily range): BP systolic 175–192; BP diastolic 51–69; PULSE 73–77; TEMP 36.5–37; O2SAT 90–98; Ht 157.5 cm; Wt 110.9 kg
[~2016-12-28 09:02] MED LIST changes: -ADVIN25050 INH; +APR25 PO; -ATV1HP PO; -CHOL100010 PO; -DICL1SOL6 TOP; -DIPH25CA37 PO; -IPRA1AER2 INH; +IPRASOL4 INH; +LSX20 PO; -LTRCR45 TOP; +LVQ250 PO; -MELA1CAP9 PO; +MENTOIN TOP; -NZRSHM TOP; +OXGN; +PRD10 PO; -SNG10 PO; +SYMIN8045 INH; +TRAZ50TA35 PO; -ULT50HP PO
[2016-12-28] MEDS ORDERED: METHYLPREDNISOLONE 125 MG VIAL IV STA (09:23)
[2016-12-28] MEDS ORDERED: ALBUT/IPRATROP 3MG/0.5MG NEB 3 ML VIAL INH ONE (09:30)
--- NOTE | 2016-12-28 09:46 | DIAGNOSTIC IMAGING REPORT ---
CHEST ONE VIEW PORTABLE CLINICAL HISTORY: shortness of breath dyspnea COMPARISON STUDY: 11/23/2016 FINDINGS: Mild stable cardiomegaly. Chronic fullness of the hilar regions bilaterally. Bony vasculature slightly increased in prominence. Slight blunting of the lateral calcific angles bilaterally. IMPRESSION: Early congestive heart failure Electronically signed by: Travis Weeks M.D. 12/28/2016 9:45 AM Dictated Date/Time: 12/28/2016 9:44 AM
[2016-12-28 09:48] LABS: BUN/CREATININE RATIO 21.9 (10-20); CALCIUM 8.6 mg/dl (8.5-10.1); CREATININE 2.2 mg/dl (0.60-1.20); POTASSIUM 4.8 mmol/L (3.5-5.1)
[2016-12-28 09:52] LABS: HEMATOCRIT 30.7 % (37-47); MEAN CELL VOLUME 108.1 fL (80-100); MEAN CORPUSCULAR HGB CONC 28.7 g/dl (32-36); MEAN PLATELET VOLUME 9.4 fL (7.4-10.4); PLATELET COUNT 257 K/uL (130-400); RED BLOOD COUNT 2.84 M/uL (4.2-5.4); WHITE BLOOD COUNT 11.29 K/uL (4.8-10.8)
[2016-12-28 09:53] LABS: ALB/GLOB RATIO 1.1 (0.9-2)
--- NOTE | 2016-12-28 09:53 | EMERGENCY ROOM VISIT NOTE ---
History First contact with patient: 09:11 Chief Complaint: SHORTNESS OF BREATH Stated Complaint: RESPIRATORY History of Present Illness The patient is a 76 year old female who presents to the Emergency Room with complaints of shortness of breath. The patient has a history of COPD. The patient was recently admitted last month with respiratory failure. The patient states that she uses oxygen 24 hours a day. She states she constantly has dyspnea. She states that this morning she could not breathe. She states her contacted the ambulance and she was brought to the emergency department. The patient states that currently she feels at her baseline and reports shortness of breath. She denies any earache, sore throat, cough or fever. She denies any abdominal pain, nausea or vomiting. She reports swelling to the bilateral lower extremities which she states is slightly worse than her baseline. Review of Systems A 10 system review of systems was completed with positives and pertinent negatives listed in the HPI. Past Medical/Surgical History Medical Problems: (1) Acute respiratory failure (2) Anemia due to chronic kidney disease (3) Aortic stenosis (4) CKD (chronic kidney disease), stage IV (5) COPD (chronic obstructive pulmonary disease) (6) Depression with anxiety (7) Diastolic CHF (8) Dyslipidemia (9) GERD (gastroesophageal reflux disease) (10) HTN (hypertension) (11) Hypothyroidism (12) Osteoarthritis (13) Respiratory failure with hypoxia Surgical Problems: (1) History of appendectomy (2) History of hysterectomy (3) Hx of cholecystectomy (4) Hx of tonsillectomy (5) S/P gastric bypass Family History FH: breast cancer MOTHER Social History Smoking Status: Former Smoker Alcohol Use: none Drug Use: none Marital Status: Housing Status: lives with family Occupation Status: retired Current/Historical Medications Scheduled Amlodipine Besylate (Amlodipine Besylate), 10 MG PO QAM Budesonide/Formoterol Fumarate (Symbicort 80-4.5 Mcg/Act), 2 PUFFS INH BID Cholecalciferol (Vitamin D3), 5,000 UNIT PO QAM Citalopram Hydrobromide (Celexa), 20 MG PO DAILY Cyanocobalamin (Vitamin B12), 1,000 MCG PO DAILY Ferrous Sulfate (Iron), 325 MG PO DAILY Furosemide (Furosemide), 40 MG PO QAM Hydralazine Hcl (Apresoline), 25 MG PO BID Isosorbide Mononitrate (Isosorbide Mononitrate ER), 30 MG PO DAILY Multivitamin (Multivitamin), 1 TAB PO DAILY Omeprazole (Prilosec), 20 MG PO DAILY Oxygen (Oxygen), 3 LITERS NA CONTINOUS Trazodone Hcl (Trazodone), 50 MG PO HS Allergies Coded Allergies: Ampicillin (Unverified Allergy, Unknown, ITCHING, 11/23/16) Latex1 -Allergic Contact Dermititis (Unverified Allergy, Unknown, ITCHING , 11/23/16) Physical Exam Vital Signs Date Time Temp Pulse Resp B/P Pulse Ox O2 Delivery O2 Flow Rate FiO2 12/28/16 11:45 77 22 175/51 93 Nasal Cannula 4.0 12/28/16 10:31 71 24 180/59 99 12/28/16 09:37 90 Nasal Cannula 3.0 12/28/16 09:30 77 20 96 Nasal Cannula 4.0 12/28/16 09:19 90 Nasal Cannula 3.0 12/28/16 09:12 49 12/28/16 09:07 36.6 50 26 214/85 90 Nasal Cannula 3.0 Physical Exam VITALS: Vitals are noted on the nurse's note and reviewed by myself. Vital signs stable. GENERAL: This is a 76-year-old female, in no acute distress, nondiaphoretic, well-developed well-nourished. SKIN: The skin was without rashes, erythema, edema, or bruising. There is no tenting of the skin. Capillary reflex less than 2 seconds. HEAD: Normocephalic atraumatic. EARS: External auditory canals clear, tympanic membranes pearly mcdermott without erythema or effusion bilaterally. EYES: Pupils equal round and reactive to light and accommodation. Conjunctivae without injection, sclerae without icterus. Extraocular movements intact. NOSE: Patent, turbinates without inflammation or discharge. MOUTH: Mucous membranes moist. Tonsils are not enlarged. Pharynx without erythema or exudate. Uvula midline. Airway patent. Tongue does not deviate. NECK: Supple without nuchal rigidity. No lymphadenopathy. No thyromegaly. Cervical spine is nontender. No JVD. HEART: Regular rate and rhythm with a moderate systolic murmur heard. LUNGS: Significantly diminished throughout. Minimal expiratory wheezing. No dullness to percussion. The patient is visibly dyspneic but is able to speak in short sentences. ABDOMEN: Positive bowel sounds x 4. Normal tympanic percussion. Soft, nontender, without masses or organomegaly. Keita sign negative. MUSCULOSKELETAL: There are venous stasis changes to the bilateral lower extremities with bilateral pedal edema that extends proximally almost to her low back. Full range of motion in all extremities. No tenderness to palpation. Normal gait. Strength 5/5 throughout. NEURO: Patient was alert and oriented to person place and time. No focal neurological deficits. Medical Decision & Procedures ER Provider Diagnostic Interpretation: CHEST ONE VIEW PORTABLE CLINICAL HISTORY: shortness of breath dyspnea COMPARISON STUDY: 11/23/2016 FINDINGS: Mild stable cardiomegaly. Chronic fullness of the hilar regions bilaterally. Bony vasculature slightly increased in prominence. Slight blunting of the lateral calcific angles bilaterally. IMPRESSION: Early congestive heart failure Laboratory Results 12/28/16 08:35 Red Blood Count 2.84, Mean Corpuscular Volume 108.1, Mean Corpuscular Hemoglobin 31.0, Mean Corpuscular Hemoglobin Concent 28.7, Mean Platelet Volume 9.4, Neutrophils (%) (Auto) 74.0, Lymphocytes (%) (Auto) 16.6, Monocytes (%) ( Auto) 7.4, Eosinophils (%) (Auto) 1.3, Basophils (%) (Auto) 0.3, Neutrophils # ( Auto) 8.36, Lymphocytes # (Auto) 1.87, Monocytes # (Auto) 0.84, Eosinophils # ( Auto) 0.15, Basophils # (Auto) 0.03 12/28/16 08:35 Test 12/28/16 08:35 12/28/16 10:05 White Blood Count 11.29 K/uL (4.8-10.8) Red Blood Count 2.84 M/uL (4.2-5.4) Hemoglobin 8.8 g/dL (12.0-16.0) Hematocrit 30.7 % (37-47) Mean Corpuscular Volume 108.1 fL (80-100) Mean Corpuscular Hemoglobin 31.0 pg (25-34) Mean Corpuscular Hemoglobin Concent 28.7 g/dl (32-36) Platelet Count 257 K/uL (130-400) Mean Platelet Volume 9.4 fL (7.4-10.4) Neutrophils (%) (Auto) 74.0 % Lymphocytes (%) (Auto) 16.6 % Monocytes (%) (Auto) 7.4 % Eosinophils (%) (Auto) 1.3 % Basophils (%) (Auto) 0.3 % Neutrophils # (Auto) 8.36 K/uL (1.4-6.5) Lymphocytes # (Auto) 1.87 K/uL (1.2-3.4) Monocytes # (Auto) 0.84 K/uL (0.11-0.59) Eosinophils # (Auto) 0.15 K/uL (0-0.5) Basophils # (Auto) 0.03 K/uL (0-0.2) RDW Standard Deviation 54.2 fL (36.4-46.3) RDW Coefficient of Variation 13.7 % (11.5-14.5) Immature Granulocyte % (Auto) 0.4 % Immature Granulocyte # (Auto) 0.04 K/uL (0.00-0.02) Macrocytosis PRESENT Anion Gap 1.0 mmol/L (3-11) Est Creatinine Clear Calc Drug Dose 26.9 ml/min Estimated GFR () 24.8 Estimated GFR (Non- 21.4 BUN/Creatinine Ratio 21.9 (10-20) Calcium Level 8.6 mg/dl (8.5-10.1) Magnesium Level 2.0 mg/dl (1.8-2.4) Total Bilirubin 0.4 mg/dl (0.2-1) Aspartate Amino Transf (AST/SGOT) 10 U/L (15-37) Alanine Aminotransferase (ALT/SGPT) 10 U/L (12-78) Alkaline Phosphatase 133 U/L (45-117) Total Protein 7.0 gm/dl (6.4-8.2) Albumin 3.6 gm/dl (3.4-5.0) Globulin 3.4 gm/dl (2.5-4.0) Albumin/Globulin Ratio 1.1 (0.9-2) Prothrombin Time 11.2 SECONDS (9.0-12.0) Prothromb Time International Ratio 1.0 (0.9-1.1) Activated Partial Thromboplast Time 27.7 SECONDS (21.0-31.0) Partial Thromboplastin Ratio 1.1 Venous Blood pH 7.25 (7.36-7.41) Venous Blood Partial Pressure CO2 85 mmHg (38.0-50.0) Venous Blood Partial Pressure O2 33 mmHg Venous Blood HCO3 36 mmol/L Venous Blood Oxygen Saturation < 60.0 % Venous Blood Base Excess 7.5 mmol/L Bedside Lactic Acid Venous < 0.30 mmol/L (0.90-1.70) Pro-B-Type Natriuretic Peptide 3121 pg/ml (0-900) Medications Administered Medications (Trade) Dose Ordered Sig/Pieter Route Start Time Stop Time Status Last Admin Dose Admin Albuterol/ Ipratropium (Duoneb) 12 ml ONE ONCE INH 12/28/16 09:30 12/28/16 09:31 DC 12/28/16 09:35 12 ML Methylprednisolone Sodium Succinate (Solu-Medrol IV) 80 mg NOW STAT IV 12/28/16 09:23 12/28/16 09:27 DC 12/28/16 09:43 80 MG Furosemide (Lasix Inj) 40 mg NOW STAT IV 12/28/16 10:51 12/28/16 10:52 DC 12/28/16 10:58 40 MG Procedure The patient was monitored on a satellite project site monitor which revealed a sinus bradycardia ECG Indication: chest pain Rate (beats per minute): 49 Rhythm: sinus bradycardia Findings: nonspecific-ST abn Change: no significant change ED Course The patient was seen and examined. Previous visits were reviewed. The patient does not have a fever. She does have a mild leukocytosis of 11.29. She is anemic with hemoglobin 8.8. This is slightly worse compared to previous. She does not have any significant electrolyte abnormalities. She has renal insufficiency which is actually improved compared to previous. Lactic acid was not elevated. BNP was 3121. Troponin was not elevated. The patient's pH is 7.25 and her bicarbonate is 85. This is slightly worse compared to her blood gas at the time of discharge last month. Chest x-ray suggests CHF EKG did not reveal acute arrhythmia or acute ischemia The patient was given a 1 hour DuoNeb and stated she was feeling much better She was given 80 mg IV Solu-Medrol She was given 40 mg IV Lasix The patient has a history of respiratory failure and COPD. She presents with worsening dyspnea. She also has extensive and worsening pedal edema that extends almost to her low back. The patient does use oxygen at home. The patient was given a 1 hour DuoNeb and stated she was feeling significantly improved. I discussed BiPAP with her but she refused at this time. She stated she "hates that thing." At that time, she stated she was not feeling very short of breath and she was alert and oriented. She also refused arterial blood gas but a venous blood gas was obtained. Given the patient's history of COPD, dyspnea and now CHF, she would benefit from further evaluation and management in the hospital. The case was discussed with the [facility] and they will evaluate the patient. The patient was also seen and examined by who agrees with the assessment and treatment plan. Medical Decision DIFFERENTIAL DIAGNOSIS: Aortic dissection, myocarditis, pericarditis, cervical disc disease, costochondritis, herpes zoster, rib fracture, pleuritis, pneumonia , pulmonary embolus, tension pneumothorax, anxiety disorder, somatoform disorder , choledocholithiasis, status, esophagitis, esophageal spasm, esophageal reflux , esophageal rupture, pancreatitis, peptic ulcer disease, cardiac ischemia, ST elevation [place], acute coronary syndrome, arrhythmia, coronary artery vasospasm. vavular heart disease, coronary artery disease, among others. Impression Primary Impression: [id number] respiratory failure Additional Impressions: Anemia CHF (congestive heart failure) Dyspnea Departure Information Dispostion Admitted as an inpatient Condition FAIR Referrals Christine Ward M.D. (PCP) Patient Instructions My [facility] Problem Qualifiers
[2016-12-28 10:11] LABS: BASO % 0.3 %; BASO ABS # 0.03 K/uL (0-0.2); COMPLETE YES; EOS % 1.3 %; IG% 0.4 %; LYMPH % 16.6 %; LYMPH ABS # 1.87 K/uL (1.2-3.4); MONO % 7.4 %
[2016-12-28 10:23] LABS: VEN BLOOD GAS BASE EXCESS 7.5 mmol/L; VENOUS BLOOD GAS PCO2 85 mmHg (38.0-50.0); VENOUS BLOOD GAS PO2 33 mmHg
[2016-12-28 10:24] LABS: VEN BLD GAS O2 SATURATION < 60.0 %
[2016-12-28 10:47] LABS: PARTIAL THROMBOPLASTIN RATIO 1.1; PROTHROMBIN TIME (PATIENT) 11.2 SECONDS (9.0-12.0)
[2016-12-28] MEDS ORDERED: FUROSEMIDE 40 MG/4 ML VIAL IV STA (10:51)
--- NOTE | 2016-12-28 11:23 | EMERGENCY ROOM VISIT NOTE ---
ED Visit Note First contact with patient: 09:11 Staff note: I have reviewed the Patients chart and have discussed this case with my PA. I generally agree with the ED note and findings.
[2016-12-28] MEDS ORDERED: ONDANSETRON INJ 2 MG/ML 2 ML VIAL IV PRN (12:15)
[2016-12-28] MEDS ORDERED: NITROGLYCERIN 0.4 MG SL PER TAB CHARGE SL PRN (12:15)
[2016-12-28] MEDS ORDERED: POLYETHYLENE (MIRALAX) 17 GM PACK PO PRN (12:15)
--- NOTE | 2016-12-28 12:56 | History and Physical ---
History & Physical Date & Time of Service: December 28, 2016 at 12:35 Chief Complaint: Respiratory Primary Care Physician: Christine Ward M.D. History of Present Illness Source: patient 76 yo F with chronic respiratory failure on 3L NC at home with worsening weight gain and shortness of breath over the past 1-2 weeks. She was recently admitted to the hospital for acute hypercapnic respiratory failure from 11/23- and was treated for COPD exacerbation. She was also seen by Nephro and was given Lasix with base weight around 222lbs on discharge and outpatient follow- up shortly afterward. Since that time home health states that she has gained roughly 30 lbs and she is 89 today. reports that she has gained weight and both he and patient deny any coughing, bleeding/bruising, chest pain , fevers, chills, headaches, nausea, vomiting, diarrhea, abdominal pain. He says she has just slowly declined. He reports she doesn't see Cardiology or Pulmonology and only sees Dr. Ward who is aware of the weight gain. No additional Lasix was given as outpatient. The patient does report wheezing and use of nebulizers at home. She does not wear a CPAP mask at night. She is known to have diastolic heart failure 2/2 hypertension, and her BP was elevated to 215 systolic on arrival to the ER, coming down to 180 with Lasix 40 IV. CXR reveals fluid overload worse since last admission on 11/23. EKG reveals sinus sara with no ST changes concerning for ischemia at this time. The patient was very lethargic on exam likely 2/2 CO2 retention and allowed BIPAP to be placed. Past Medical/Surgical History Medical Problems: (1) Anemia due to chronic kidney disease Status: Chronic (2) Aortic stenosis Status: Chronic (3) CKD (chronic kidney disease), stage IV Status: Chronic (4) COPD (chronic obstructive pulmonary disease) Status: Chronic (5) Depression with anxiety Status: Chronic (6) Diastolic CHF Status: Chronic (7) Dyslipidemia Status: Chronic (8) GERD (gastroesophageal reflux disease) Status: Chronic (9) HTN (hypertension) Status: Chronic (10) Hypothyroidism Status: Chronic (11) Osteoarthritis Status: Chronic (12) Respiratory failure with hypoxia Status: Chronic Surgical Problems: (1) History of appendectomy Status: Chronic (2) History of hysterectomy Status: Chronic (3) Hx of cholecystectomy Status: Chronic (4) Hx of tonsillectomy Status: Chronic (5) S/P gastric bypass Status: Chronic Family History FH: breast cancer MOTHER Social History Smoking Status: Former Smoker Drug Use: none Marital Status: Housing status: lives with significant other Occupational Status: retired Immunizations History of Influenza Vaccine: Yes Influenza Vaccine Date: May 16, 2015 History of Tetanus Vaccine?: Unknown History of Pneumococcal: Yes Pneumococcal Date: Apr 15, 2016 History of Hepatitis B Vaccine: No Multi-Drug Resistant Organisms History of MDRO: No Allergies Coded Allergies: Ampicillin (Unverified Allergy, Unknown, ITCHING, 11/23/16) Latex1 -Allergic Contact Dermititis (Unverified Allergy, Unknown, ITCHING , 11/23/16) Home Medications Scheduled Amlodipine Besylate (Amlodipine Besylate), 10 MG PO QAM Budesonide/Formoterol Fumarate (Symbicort 80-4.5 Mcg/Act), 2 PUFFS INH BID Cholecalciferol (Vitamin D3), 5,000 UNIT PO QAM Citalopram Hydrobromide (Celexa), 20 MG PO DAILY Cyanocobalamin (Vitamin B12), 1,000 MCG PO DAILY Ferrous Sulfate (Iron), 325 MG PO DAILY Furosemide (Furosemide), 40 MG PO QAM Hydralazine Hcl (Apresoline), 25 MG PO BID Isosorbide Mononitrate (Isosorbide Mononitrate ER), 30 MG PO DAILY Multivitamin (Multivitamin), 1 TAB PO DAILY Omeprazole (Prilosec), 20 MG PO DAILY Oxygen (Oxygen), 3 LITERS NA CONTINOUS Trazodone Hcl (Trazodone), 50 MG PO HS Review of Systems Ten systems were reviewed and negative except as indicated in HPI Physical Exam Vital Signs Date Time Temp Pulse Resp B/P Pulse Ox O2 Delivery O2 Flow Rate FiO2 12/28/16 12:27 72 12/28/16 12:12 73 95 50 12/28/16 12:00 36.5 77 22 175/51 90 Nasal Cannula 4.0 12/28/16 11:45 77 22 175/51 93 Nasal Cannula 4.0 12/28/16 10:31 71 24 180/59 99 12/28/16 09:37 90 Nasal Cannula 3.0 12/28/16 09:30 77 20 96 Nasal Cannula 4.0 12/28/16 09:19 90 Nasal Cannula 3.0 12/28/16 09:12 49 12/28/16 09:07 36.6 50 26 214/85 90 Nasal Cannula 3.0 GEN: morbid obesity, in no acute distress, lethargic but easily aroused and is oriented to person place and time. HEENT: NC/AT, PERRL, normal sclerae, normal conjunctivae, mucous membranes are moist. CARDIO: reg rate, 3/6 LIEN at LSB LUNGS: crackles heard at bases with diminished breath sounds. She is difficult to examine with morbid obesity and lethargy along with poor compliance with instructions to take deep breaths. ABD: soft, non-tender, non-distended, +BS EXTREMITY: warm and well perfused, obese with edema present but difficult to interpret in setting of obesity NEURO: CN 2-12 grossly intact, no gross focal deficits, not moving much but moves all extremities equally. MUSC: 5/5 strength throughout, no gross focal deficits SKIN: warm and dry, multiple small erythematous wounds all over her face, nondraining. Diagnostics Laboratory Results Results Past 24 Hours Test 12/28/16 08:35 12/28/16 10:05 Range/Units White Blood Count 11.29 4.8-10.8 K/uL Red Blood Count 2.84 4.2-5.4 M/uL Hemoglobin 8.8 12.0-16.0 g/dL Hematocrit 30.7 37-47 % Mean Corpuscular Volume 108.1 80-100 fL Mean Corpuscular Hemoglobin 31.0 25-34 pg Mean Corpuscular Hemoglobin Concent 28.7 32-36 g/dl Platelet Count 257 130-400 K/uL Mean Platelet Volume 9.4 7.4-10.4 fL Neutrophils (%) (Auto) 74.0 % Lymphocytes (%) (Auto) 16.6 % Monocytes (%) (Auto) 7.4 % Eosinophils (%) (Auto) 1.3 % Basophils (%) (Auto) 0.3 % Neutrophils # (Auto) 8.36 1.4-6.5 K/uL Lymphocytes # (Auto) 1.87 1.2-3.4 K/uL Monocytes # (Auto) 0.84 0.11-0.59 K/uL Eosinophils # (Auto) 0.15 0-0.5 K/uL Basophils # (Auto) 0.03 0-0.2 K/uL RDW Standard Deviation 54.2 36.4-46.3 fL RDW Coefficient of Variation 13.7 11.5-14.5 % Immature Granulocyte % (Auto) 0.4 % Immature Granulocyte # (Auto) 0.04 0.00-0.02 K/uL Macrocytosis PRESENT Sodium Level 142 136-145 mmol/L Potassium Level 4.8 3.5-5.1 mmol/L Chloride Level 103 98-107 mmol/L Carbon Dioxide Level 38 21-32 mmol/L Anion Gap 1.0 3-11 mmol/L Blood Urea Nitrogen 48 7-18 mg/dl Creatinine 2.20 0.60-1.20 mg/dl Est Creatinine Clear Calc Drug Dose 26.9 ml/min Estimated GFR () 24.8 Estimated GFR (Non- 21.4 BUN/Creatinine Ratio 21.9 10-20 Random Glucose 106 70-99 mg/dl Calcium Level 8.6 8.5-10.1 mg/dl Magnesium Level 2.0 1.8-2.4 mg/dl Total Bilirubin 0.4 0.2-1 mg/dl Aspartate Amino Transf (AST/SGOT) 10 15-37 U/L Alanine Aminotransferase (ALT/SGPT) 10 12-78 U/L Alkaline Phosphatase 133 45-117 U/L Troponin I 0.022 0-0.045 ng/ml Total Protein 7.0 6.4-8.2 gm/dl Albumin 3.6 3.4-5.0 gm/dl Globulin 3.4 2.5-4.0 gm/dl Albumin/Globulin Ratio 1.1 0.9-2 Prothrombin Time 11.2 9.0-12.0 SECONDS Prothromb Time International Ratio 1.0 0.9-1.1 Activated Partial Thromboplast Time 27.7 21.0-31.0 SECONDS Partial Thromboplastin Ratio 1.1 Venous Blood pH 7.25 7.36-7.41 Venous Blood Partial Pressure CO2 85 38.0-50.0 mmHg Venous Blood Partial Pressure O2 33 mmHg Venous Blood HCO3 36 mmol/L Venous Blood Oxygen Saturation < 60.0 % Venous Blood Base Excess 7.5 mmol/L Bedside Lactic Acid Venous < 0.30 0.90-1.70 mmol/L Pro-B-Type Natriuretic Peptide 3121 0-900 pg/ml Microbiology Results 12/28/16 Blood Culture, Received Pending 12/28/16 Blood Culture, Received Pending Diagnostic Radiology CHEST ONE VIEW PORTABLE CLINICAL HISTORY: shortness of breath dyspnea COMPARISON STUDY: 11/23/2016 FINDINGS: Mild stable cardiomegaly. Chronic fullness of the hilar regions bilaterally. Bony vasculature slightly increased in prominence. Slight blunting of the lateral calcific angles bilaterally. IMPRESSION: Early congestive heart failure EKG SB 49 Impression Assessment and Plan 76 yo F with acute on chronic respiratory failure 1. ARF-multifactorial etiology with COPD exacerbation and hypercapnia present as well as fluid overload possibly from acute diastolic heart failure (dietary indiscretions with salt reported) vs worsening renal function. Currently creatinine is around her baseline, so will optimize heart function with Lasix IV. Will update her TTE and rule out ACS with serial enzymes although less likely with subacute presentation and no chest pain or h/o CAD; initial trop negative and EKG is nonischemic). BIPAP placed for hypercapnia with lethargy likely 2/2 CO2 retention at this point. Will consult pulm for assistance, cont IV steroids, cont neb treatments scheduled and PRN, and start doxy BID for COPD exacerbation. Cont oxygen support. 2. HTN-elevated to 180 and will see how she settles out on the floor. Cont hydralazine, but hold amlodipine in setting of edema. If need other agents may want to bring Nephro on board who has seen her before to assist with better BP control in setting of known worsening kidney function. 3. CKD-Stage IV- around her baseline. Will consult Nephrology for assistance with fluid balance. 4. Morbid Obesity 5. Depression DVT proph-heparin 5K SQ DNR-confirmed with on admission Diet-NPO while on BIPAP Dispo-to telemetry [facility] Murillo [facility] Telemetry Advanced Directives Existing Living Will: Yes Existing Power of Group Chief Operator: Yes Resuscitation Status DO NOT RESUSCITATE VTE Prophylaxis VTE Risk Assessment Done? Y/N: Yes Risk Level: Moderate Given or contraindicated: Unfractionated heparin SQ
[2016-12-28] MEDS ORDERED: INFLUENZA ADMINISTRATION CHARGE ONE (14:00)
[2016-12-28] MEDS ORDERED: INFLUENZA VIRUS QUAD VACCINE 0.5 ML SYR IM. ONE (14:00)
[2016-12-28] MEDS ORDERED: PNEUMOCOCCAL ADMINISTRATION CHARGE ONE (14:15)
[2016-12-28] MEDS ORDERED: PNEUMOCOCCAL POLYSACCHARIDES 25 MCG/0.5 ML VIAL/SYR IM. ONE (14:15)
[2016-12-28] MEDS: HEPARIN SOD 5000 UNIT/0.5 ML CARP SQ SCH ×2 (14:25→21:18)
[2016-12-28] MEDS: DOXYCYCLINE IV 100 MG in DEXTROSE 5% 100ML 100 ML IV SCH (14:25)
[2016-12-28 15:05] LABS: URINE APPEARANCE CLEAR (CLEAR); URINE BILIRUBIN NEG (NEG); URINE COLOR YELLOW; URINE NITRITE NEG (NEG); UROBILINOGEN NEG (NEG)
[2016-12-28 15:06] LABS: MANUAL MICROSCOPIC REQUIRED? NO; REVIEW REQ? NO
--- NOTE | 2016-12-28 15:06 | ECHOCARDIOGRAM REPORT ---
*NOTICE TO RECEIVING REPUBLICAN AGENCY This information is strictly Confidential and protected under [place] law. [place] law prohibits you from making any further disclosure of this information unless further disclosure is expressly permitted by the written consent of the person to whom it pertains or is authorized by law. A general authorization for the release of medical or other information is not sufficient for this purpose. Hospital accepts no responsibility if the information is made available to any other person, INCLUDING THE PATIENT. Interpretation Summary * Name: GHASSAN BASURTO Study Date: 12/28/2016 01:52 PM BP: 160/48 mmHg * Patient Location: [facility] HR: 80 * : 1940 (M/d/yyyy) Gender: Female Height: 62 in * Age: 76 yrs Ethnicity: [place] Weight: 252 lb * Ordering Physician: Malena Murillo * Referring Physician: Self, Referred * Performed By: Alyx Bonner RCS * * Reason For Study: CHF * BSA: 2.1 m2 * -- Conclusions -- * Small, underfilled LV chamber size with mild concentric LVH. * Hyperdynamic LV systolic function, EF >70%. * No segmental left ventricular wall motion abnormalities are noted. * Grade I diastolic dysfunction. * The aortic valve is not well visualized. * Moderately calcified aortic valve. * There is no significant aortic regurgitation. * Moderate valvular aortic stenosis. * Moderate to severe MAC. * Moderate left atrial enlargement. Procedure Details * A complete two-dimensional transthoracic echocardiogram was performed (2D, M-mode, Doppler and color flow Doppler). Left Ventricle * The left ventricular cavity is small. * There is mild concentric left ventricular hypertrophy. * Ejection Fraction = >70 %. * The left ventricle is hyperdynamic. * No segmental left ventricular wall motion abnormalities are noted. * The left ventricular wall motion is normal. Right Ventricle * The right ventricular cavity size is normal (basal dimension <4.2 cm in right ventricular apical 4-chamber view). * The right ventricular systolic function is normal as assessed by tricuspid annular plane systolic excursion (TAPSE) (normal >1.5 cm). Atria * The left atrium is moderately dilated. * Right atrial size is normal. * No ASD detected; PFO is not assessed. Mitral Valve * There is moderate to severe mitral annular calcification. * There is no mitral valve stenosis. * There is no mitral regurgitation noted. Tricuspid Valve * The tricuspid valve is not well visualized. * There is no tricuspid stenosis. * No tricuspid regurgitation. Aortic Valve * The aortic valve is not well visualized. * Moderately calcified aortic valve. * Moderate valvular aortic stenosis. * There is no significant aortic regurgitation. Pulmonic Valve * The pulmonary valve is not well seen, but the Doppler examination is normal without significant regurgitation or stenosis. Great Vessels * The aortic root is normal size. Pericardium/Pleural * There is no pericardial effusion. * Moderate size left pleural effusion. Left Ventricular Diastolic Function * Grade I diastolic dysfunction, (abnormal relaxation pattern). MMode 2D Measurements and Calculations IVSd 1.5 cm IVSs 2.0 cm LVIDd 5.0 cm LVIDs 3.1 cm LVPWd 1.3 cm LVPWs 1.5 cm IVS/LVPW 1.1 FS 38.5 % EDV(Teich) 116.4 ml ESV(Teich) 36.5 ml EF(Teich) 68.6 % EDV(cubed) 122.5 ml ESV(cubed) 28.5 ml EF(cubed) 76.8 % % IVS thick 36.8 % % LVPW thick 10.9 % LV mass(C)d 289.6 grams LV mass(C)dI 137.3 grams/m\S\2 LV mass(C)s 211.2 grams LV mass(C)sI 100.1 grams/m\S\2 SV(Teich) 79.9 ml SI(Teich) 37.9 ml/m\S\2 SV(cubed) 94.1 ml SI(cubed) 44.6 ml/m\S\2 Ao root diam 3.5 cm Ao root area 9.5 cm\S\2 LA dimension 5.4 cm LA/Ao 1.6 LVOT diam 2.0 cm LVOT area 3.1 cm\S\2 LVAd ap4 42.8 cm\S\2 LVLd ap4 8.7 cm EDV(MOD-sp4) 170.0 ml EDV(sp4-el) 179.0 ml LVAs ap4 20.4 cm\S\2 LVLs ap4 6.9 cm ESV(MOD-sp4) 51.9 ml ESV(sp4-el) 50.9 ml EF(MOD-sp4) 69.5 % EF(sp4-el) 71.6 % LVAd ap2 46.0 cm\S\2 LVLd ap2 9.0 cm EDV(MOD-sp2) 193.7 ml EDV(sp2-el) 198.6 ml LVAs ap2 21.8 cm\S\2 LVLs ap2 7.4 cm ESV(MOD-sp2) 55.0 ml ESV(sp2-el) 54.3 ml EF(MOD-sp2) 71.6 % EF(sp2-el) 72.6 % LVLd %diff 4.0 % EDV(MOD-bp) 183.4 ml LVLs %diff 6.4 % ESV(MOD-bp) 55.2 ml EF(MOD-bp) 69.9 % SV(MOD-sp4) 118.1 ml SI(MOD-sp4) 56.0 ml/m\S\2 SV(MOD-sp2) 138.7 ml SI(MOD-sp2) 65.8 ml/m\S\2 SV(MOD-bp) 128.2 ml SI(MOD-bp) 60.8 ml/m\S\2 SV(sp4-el) 128.1 ml SI(sp4-el) 60.7 ml/m\S\2 SV(sp2-el) 144.2 ml SI(sp2-el) 68.4 ml/m\S\2 Doppler Measurements and Calculations MV E max lorenzo 145.1 cm/sec MV A max lorenzo 179.0 cm/sec MV E/A 0.81 MV P1/2t max lorenzo 171.8 cm/sec MV P1/2t 78.4 msec MVA(P1/2t) 2.8 cm\S\2 MV dec slope 642.3 cm/sec\S\2 MV dec time 0.25 sec Ao V2 max 363.4 cm/sec Ao max PG 52.8 mmHg Ao max PG (full) 32.9 mmHg Ao V2 mean 246.0 cm/sec Ao mean PG 28.1 mmHg Ao mean PG (full) 18.4 mmHg Ao V2 VTI 87.7 cm NATALIA(I,A) 1.9 cm\S\2 NATALIA(I,D) 1.9 cm\S\2 NATALIA(V,A) 1.9 cm\S\2 NATALIA(V,D) 1.9 cm\S\2 LV V1 max PG 19.9 mmHg LV V1 mean PG 9.6 mmHg LV V1 max 223.3 cm/sec LV V1 mean 140.6 cm/sec LV V1 VTI 53.4 cm MR max lorenzo 614.7 cm/sec MR max PG 151.3 mmHg SV(Ao) 831.2 ml SI(Ao) 394.2 ml/m\S\2 SV(LVOT) 166.6 ml SI(LVOT) 79.0 ml/m\S\2 TR max lorenzo 357.8 cm/sec
[2016-12-28 15:41] LABS: CKMB/CK RATIO 4.8 (0-3.0)
[2016-12-28] MEDS: FUROSEMIDE INJ 40 MG in SYRINGE 0 ML IV SCH (17:13)
[2016-12-28] MEDS: METHYLPREDNISOLONE IV 40 MG in SYRINGE 0 ML IV SCH (17:14)
[2016-12-28 21:45] LABS: CKMB/CK RATIO 4.7 (0-3.0)
[2016-12-28] MEDS ORDERED: HydrALAZINE HCL 20 MG/ML VIAL IV. ONE (22:06)
[2016-12-29] VITALS (16 sets, daily range): BP systolic 150–179; BP diastolic 52–69; PULSE 73–81; TEMP 36.7–37.8; O2SAT 92–96
[2016-12-29] MEDS: ACETAMINOPHEN 325 MG TAB PO PRN ×2 (00:20→20:38)
[2016-12-29] MEDS: METHYLPREDNISOLONE IV 40 MG in SYRINGE 0 ML IV SCH ×3 (01:30→17:40)
[2016-12-29] MEDS: DOXYCYCLINE IV 100 MG in DEXTROSE 5% 100ML 100 ML IV SCH ×2 (01:30→14:21)
[2016-12-29 06:06] LABS: HEMATOCRIT 27.5 % (37-47); MEAN CORPUSCULAR HEMOGLOBIN 32.1 pg (25-34); MEAN CORPUSCULAR HGB CONC 30.5 g/dl (32-36); MEAN PLATELET VOLUME 9.6 fL (7.4-10.4); PLATELET COUNT 188 K/uL (130-400); RED BLOOD COUNT 2.62 M/uL (4.2-5.4); WHITE BLOOD COUNT 5.63 K/uL (4.8-10.8)
[2016-12-29] MEDS: HEPARIN SOD 5000 UNIT/0.5 ML CARP SQ SCH ×3 (06:25→20:40)
[2016-12-29 06:59] LABS: BUN/CREATININE RATIO 23.8 (10-20); CALCIUM 8.8 mg/dl (8.5-10.1); CHOLESTEROL/HDL RATIO 2.9; CREATININE 2.1 mg/dl (0.60-1.20); MAGNESIUM 1.9 mg/dl (1.8-2.4); POTASSIUM 4.3 mmol/L (3.5-5.1)
[2016-12-29] MEDS: PANTOprazole INJ 40 MG in SYRINGE 0 ML IV SCH (08:17)
[2016-12-29] MEDS: FUROSEMIDE INJ 40 MG in SYRINGE 0 ML IV SCH ×2 (08:18→17:40)
[2016-12-29] MEDS: ISOSORBIDE MONONITRATE 30 MG TABCR PO SCH (08:18)
[2016-12-29] MEDS: CITALOPRAM 20 MG TAB PO SCH (08:18)
--- NOTE | 2016-12-29 09:59 | NEPHROLOGY CONSULTATION ---
DATE OF CONSULTATION: 12/29/2016 DATE OF CONSULTATION: 12/29/2016. ATTENDING OF RECORD: Dr. Sweet. REASON FOR CONSULTATION: CKD with volume overload. HISTORY OF PRESENT ILLNESS: This is a 76-year-old female who follows with my partner, Dr. Kathy Forrester in the [facility] outpatient [facility] who is on chronic oxygen at home at three liters, who was recently in the hospital in November from November 23 to November 27 with a COPD exacerbation where she was treated by Dr. Kathy Forrester. The patient since discharge has gained about 30 pounds. The patient is supposed to be on CPAP; however, patient is unable to tolerate the mask. She has diastolic heart failure at baseline and chest x-ray was showing worsening fluid overload. The patient was rather lethargic on presentation and so patient was able to tolerate the BIPAP initially. The patient now is breathing much better and is much more alert and is currently refusing any more additional BiPAP. The patient did receive 1 dose of 40 mg IV Lasix yesterday at 10:00 in the morning and then received 2 more doses yesterday and diuresed 2200 mL and was negative 1600 mL for yesterday. Creatinine was 2.2 on admission and this morning is 2.1. When speaking to her about wishes for dialysis the patient says absolutely not and understands her decision and states that she would rather than do dialysis. PAST MEDICAL HISTORY: Anemia secondary to chronic kidney disease, aortic stenosis, CKD stage IV with baseline creatinine in the low 2s, COPD, diastolic heart failure, hyperlipidemia, obesity, hypertension, hypothyroidism, osteoarthritis. PAST SURGICAL HISTORY: Hysterectomy, tonsillectomy, cholecystectomy, appendectomy, gastric bypass. FAMILY HISTORY: Significant for breast cancer. SOCIAL HISTORY: Former smoker, no alcohol, no drugs. Lives with . HOME MEDICATIONS: Significant for Lasix 40 mg a day. REVIEW OF SYSTEMS: The patient with chronic diarrhea. Good appetite, shortness of breath at baseline. No chest pain. No rash or itching. No ulcers. No headaches, no blurry vision, no dysphagia. All other review of systems otherwise negative. CURRENT MEDICATIONS: Celexa 20 mg daily, doxycycline 100 mg IV q. 12, Lasix 40 mg IV b.i.d., heparin 5,000 units subQ q. 8, hydralazine 25 mg p.o. b.i.d., Imdur 30 mg daily, Solu-Medrol 40 mg IV q. 8, Protonix 40 mg IV daily. PHYSICAL EXAMINATION: VITAL SIGNS: Temperature 36.7, pulse 73, respiratory rate is 20, blood pressure is 171/66, satting 94% on 3 liters. GENERAL: Awake, alert, oriented x3, morbidly obese. EYES: No scleral icterus. PULMONARY: Decreased breath sounds at the bases. CARDIAC: A 3/6 systolic murmur, regular rate. ABDOMEN: Bowel sounds positive, soft, nontender. EXTREMITIES: No significant edema to appreciate. NEUROLOGICALLY: Nonfocal. DERMATOLOGIC: No ulcers noted on legs. LABORATORY: VBG on presentation pH 7.25, pCO2 of 85, pO2 of 33 and bicarbonate of 36. White count went from 11,000 down to 5. H\T\H 8.4 and 27.5, platelet count 188. Sodium level 141, potassium 4.3, chloride is 99, bicarbonate is 37, BUN is 50, creatinine is 2.1, glucose is 160, calcium is 8.8, mag 1.9, proBNP around 4000. INR is 1. UA is pH of 5, specific gravity 1.010, negative protein, negative blood, however 5-10 WBCs, 5-10 RBCs noted on UA. Urine culture is positive for gram negative bacilli. Blood cultures are pending. Chest x-ray shows early congestive heart failure. Echo shows EF of greater than 70%. Hyperdynamic LV systolic function, grade 1 diastolic dysfunction. No segmental left ventricular wall motion abnormalities, moderate aortic stenosis. ASSESSMENT AND PLAN: 1. Chronic kidney disease stage IV, creatinine in the low 2s. The patient does not want any dialysis whatsoever and is quite definitive in her answer and appreciates insight and understanding. The patient assures me that her is aware of her decisions, fortunately no dialysis indicated at this time. I would continue the current diuretics and patient appears more alert and more comfortable and diuresing nicely. 2. Anemia of chronic kidney disease. Would like to check iron sat and ferritin and consider Procrit if iron levels are adequate. If iron levels are low may benefit from some IV iron. Will further investigate if patient has been on Procrit in the past. Appreciate consultation. PATITO
--- NOTE | 2016-12-29 16:50 | CONSULTATION REPORT ---
DATE OF CONSULTATION: 12/29/2016 DATE OF CONSULTATION: 12/29/2016. REASON FOR CONSULTATION: End stage chronic obstructive pulmonary disease, hypercapneic acute on chronic respiratory failure. HISTORY OF PRESENT ILLNESS: The patient is a 76-year-old female with known respiratory failure with profound hypercapnia as well as end-stage chronic obstructive lung disease. Her PCP is Dr. Christine Ward from [place]. The patient was admitted to [facility] on 12/28/2016. The patient reports that after reviewing including chart patient had been admitted to [facility] on 11/23/2016 and was admitted through 11/27/2016 for a COPD exacerbation. She was seen by Dr. Valdovinos during that visit for what sounds like similar symptoms. She was diuresed quite extensively during that visit with her discharge weight being down to 222 pounds. She comes in to the ER today having a 30 pound weight gain in that short period of time and weight of 251 pounds. The patient admits that she is not compliant with her diet, does not watch her salt intake. In the ER, patient was found to be lethargic and it was felt that it was secondary to CO2 retention. She did allow them to place a BiPAP on at setting of 10/5. The patient does have known obstructive sleep apnea, but does not wear a CPAP mask at night. The patient has been counseled about wearing CPAP or BiPAP in the past and she refuses. When I examined the patient today, she states that she is not really having much of a cough. She did have some wheeze. She is using her nebulizer at home. She states that her breathing just slowly declined. Her also gives some history and states that she just would get weaker and weaker until they brought her in. She states that today she is feeling better. She states that her breathing is much improved. She feels more awake and more alert. She is not really having any difficulty with her breathing at present. She reports that she feels close to being back to her normal level. Since having the BiPAP on initially at which point she did sleep for about 3-4 hours per nursing. She has refused to wear it since then. The patient denies any other concerns or problems. No unusual headache at this time, although she does wake up with headaches alot of time. She does have lightheadedness at times as well. No chest pain. She has not had any recent palpitations. No abdominal pain. No nausea or vomiting. She states that her bowels are moving normally for her which is that her stool was a little bit loose. She will move her bowels several times a day. She is voiding a little bit more since being placed on Lasix since coming in. Prior to coming into the hospital her urine output had declined. Her reports that her legs were significantly swollen initially which prompted them to come into the hospital; however, since she has been in her swelling has improved. The patient denies any other concerns at this time. The patient did have a venous blood gas in the ER with a pH of 7.25, pCO2 85, pO2 33. The patient also had a chest x-ray in the ER which shows congestive changes as well as cardiomegaly. PAST MEDICAL HISTORY: Includes chronic respiratory failure with hypoxia and hypercarbia, hypertension, anemia, aortic stenosis, chronic kidney disease stage IV, end-stage COPD, depression, diastolic CHF, hyperlipidemia, gastroesophageal reflux disease, hypothyroidism and osteoarthritis. PAST SURGICAL HISTORY: Includes appendectomy, hysterectomy, cholecystectomy, tonsillectomy and gastric bypass. FAMILY HISTORY: Includes breast cancer. SOCIAL HISTORY: The patient is a former smoker with a 70-ocfo-tevz history. She did quit about 10 years ago. No alcohol use. ALLERGIES: AMPICILLIN AND LATEX. MEDICATIONS: As per history and physical. HOME MEDICATIONS: It has been recommended the patient use BiPAP but again she has refused this. REVIEW OF SYSTEMS: As above, otherwise unremarkable. PHYSICAL EXAMINATION: GENERAL: The patient is a 76-year-old female lying in bed in no acute distress. She is alert, interactive and cooperative. She is alert and oriented, no acute respiratory distress. No difficulty completing sentences. No dyspnea with completing sentences. VITAL SIGNS: Temp 37, pulse 75, respirations 22, blood pressure 192/60, pulse ox 98%, sats 94% on 3 liters. HEAD, EYES, EARS, NOSE, AND THROAT: Normocephalic, atraumatic. Pupils equal, round and reactive to light and accommodation. Extraocular movements are intact. [place] moist gingival and buccal mucosa. NECK: Short, thick, supple. No mass. No adenopathy. No bruit. CHEST: Diminished breath sounds but for the most part clear. I do not appreciate any wheeze, rales or rhonchi at this time. The patient does have some decreased sounds at bases but again no rales present. CARDIOVASCULAR: Regular rate and rhythm. The patient has a 3/6 systolic murmur. No gallops or rubs. ABDOMEN: Bowel sounds are present. Abdomen soft, nontender. No guarding, rigidity or organomegaly. EXTREMITIES: The patient has no significant edema present at this time. No erythema, no cyanosis or clubbing noted. NEUROLOGIC: Cranial nerves II through XII are intact. No focal deficit noted. LABORATORY DATA: Shows white count 5,000, H\T\H of 8.4/27.5, platelet count of 188,000. Last venous blood gas shows pH 7.25, pCO2 of 85, pO2 of 33, bicarbonate 36, BUN 50, creatinine 2.1. Chest x-ray as discussed above showing cardiomegaly with some congestive changes. IMPRESSION: 1. A 76-year-old female with end-stage COPD presenting with respiratory failure acute on chronic with CO2 retention. At this point I spent approximately 30 minutes discussing the benefits of using a BiPAP including benefits on her cardiac function and that using BiPAP would most likely result in fewer hospitalizations and improve quality of life. The patient reported to me that she is 76 years old and she had a good life and she is ready for whatever would happen to happen. She is very pleasant and cooperative, but very steadfast in her refusal to wear BiPAP. At this point, I would recommend to continue the Solu-Medrol. For now, the patient seems to be doing better today. Unfortunately, I feel that patient is most likely going to have repeat episodes due to refusal to wear BiPAP. 2. Chronic obstructive pulmonary disease with exacerbation. The patient currently is on doxycycline and Solu-Medrol, continue those as they are. 3. Stage chronic kidney disease. The patient was evaluated by Dr. Escobar. PLAN: Continue current regimen of medications including aggressive pulmonary toilet as well as Solu-Medrol and antibiotics. I will continue to discuss BiPAP or CPAP use with the patient although my suspicion is that she is going to continue to refuse this. I do feel strongly that if we are not able to get her use it she is going to have continued multiple hospitalizations in the future for hypercarbia. Thank you for the consultation on this patient.
--- NOTE | 2016-12-29 17:04 | Progress Note ---
Internal Med Progress Note Date of Service: December 29, 2016. Provider Documentation: SUBJECTIVE: The patient was seen and examined Feels better today Denies any SOB OBJECTIVE: Vital Signs-as noted below Exam: General-No distress at rest Eyes-normal ENT-normal Neck-supple Lungs-Decreased n=breath sound bilaterally Minimal crackles at the bases Heart-Regular,no murmur appreciated Abdomen-Benign,no masses,bowel sound present Extremities-Trace edema bilaterally Neuro-AAOx3 Lab data as noted below. ASSESSMENT & PLAN: Acute Diastolic CHF SOB with significant Weight Gain ECHO::Small, underfilled LV chamber size with mild concentric LVH. * Hyperdynamic LV systolic function, EF >70%. * No segmental left ventricular wall motion abnormalities are noted. * Grade I diastolic dysfunction. * The aortic valve is not well visualized. * Moderately calcified aortic valve. * There is no significant aortic regurgitation. * Moderate valvular aortic stenosis. * Moderate to severe MAC. * Moderate left atrial enlargement. Clinically better Has been on Lasix -continue for now Acute on Chronic Stage IV Renal disease -likely secondary to intravascular dehydration -appreciate Nephrology input -Renal function is slightly better -Refusing Dialysis in future COPD exacerbation and hypercapnia Has been on IV steroid,Nebs and Oxygen Clinically better HTN-elevated Will adjust medication Anemia Hb >8 Likely secondary to CKD Morbid Obesity Depression DVT proph-heparin 5K SQ DNR-confirmed with on admission Vital Signs: Date Time Temp Pulse Resp B/P Pulse Ox O2 Delivery O2 Flow Rate FiO2 12/29/16 15:11 36.9 74 22 157/52 92 Nasal Cannula 3.0 12/29/16 12:19 36.8 74 20 150/62 94 Nasal Cannula 3.0 12/29/16 12:00 94 Nasal Cannula 3.0 12/29/16 08:00 94 Nasal Cannula 3.0 12/29/16 07:22 36.7 73 20 171/66 94 Nasal Cannula 3.0 12/29/16 04:08 36.8 73 20 176/69 95 Nasal Cannula 4.0 12/29/16 04:00 95 Nasal Cannula 4.0 12/29/16 01:35 37.4 12/29/16 00:56 75 96 35 12/29/16 00:19 37.8 12/29/16 00:13 37.6 81 20 169/52 92 2.0 12/29/16 00:00 93 Nasal Cannula 4.0 12/28/16 20:15 37.0 77 20 182/69 91 12/28/16 20:00 93 Nasal Cannula Lab Results: Results Past 24 Hours Test 12/28/16 20:50 12/29/16 05:37 Range/Units Total Creatine Kinase 19 26-192 U/L Creatine Kinase MB 0.9 0.5-3.6 ng/ml Creatine Kinase MB Ratio 4.7 0-3.0 Troponin I < 0.015 0-0.045 ng/ml White Blood Count 5.63 4.8-10.8 K/uL Red Blood Count 2.62 4.2-5.4 M/uL Hemoglobin 8.4 12.0-16.0 g/dL Hematocrit 27.5 37-47 % Mean Corpuscular Volume 105.0 80-100 fL Mean Corpuscular Hemoglobin 32.1 25-34 pg Mean Corpuscular Hemoglobin Concent 30.5 32-36 g/dl RDW Standard Deviation 52.4 36.4-46.3 fL RDW Coefficient of Variation 13.6 11.5-14.5 % Platelet Count 188 130-400 K/uL Mean Platelet Volume 9.6 7.4-10.4 fL Sodium Level 141 136-145 mmol/L Potassium Level 4.3 3.5-5.1 mmol/L Chloride Level 99 98-107 mmol/L Carbon Dioxide Level 37 21-32 mmol/L Anion Gap 5.0 3-11 mmol/L Blood Urea Nitrogen 50 7-18 mg/dl Creatinine 2.10 0.60-1.20 mg/dl Est Creatinine Clear Calc Drug Dose 27.9 ml/min Estimated GFR () 26.2 Estimated GFR (Non- 22.6 BUN/Creatinine Ratio 23.8 10-20 Random Glucose 160 70-99 mg/dl Calcium Level 8.8 8.5-10.1 mg/dl Magnesium Level 1.9 1.8-2.4 mg/dl Pro-B-Type Natriuretic Peptide 4188 0-900 pg/ml Triglycerides Level 105 0-150 mg/dl Cholesterol Level 190 0-200 mg/dl HDL Cholesterol 66 mg/dl LDL Cholesterol, Calculated 103 mg/dl VLDL Cholesterol, Calculated 21 mg/dl Cholesterol/HDL Ratio 2.9
[2016-12-29] MEDS: TRAZODONE HCL 50 MG TAB PO PRN (23:39)
[2016-12-30] VITALS (14 sets, daily range): BP systolic 161–190; BP diastolic 61–72; PULSE 68–78; TEMP 36.5–37; O2SAT 91–95
[2016-12-30] MEDS: ACETAMINOPHEN 325 MG TAB PO PRN ×2 (00:41→21:51)
[2016-12-30] MEDS: DOXYCYCLINE IV 100 MG in DEXTROSE 5% 100ML 100 ML IV SCH (02:15)
[2016-12-30] MEDS: METHYLPREDNISOLONE IV 40 MG in SYRINGE 0 ML IV SCH ×3 (02:15→17:51)
[2016-12-30] MEDS ORDERED: NURSING DECISION MEDICATION ORDER SCH (05:15)
[2016-12-30] MEDS ORDERED: MICONAZOLE NITRATE POWDER 43 GM EXT PRN (05:30)
[2016-12-30 06:01] LABS: HEMATOCRIT 29.9 % (37-47); MEAN CELL VOLUME 107.2 fL (80-100); MEAN CORPUSCULAR HEMOGLOBIN 31.5 pg (25-34); MEAN CORPUSCULAR HGB CONC 29.4 g/dl (32-36); MEAN PLATELET VOLUME 9.5 fL (7.4-10.4); PLATELET COUNT 227 K/uL (130-400); RED BLOOD COUNT 2.79 M/uL (4.2-5.4); WHITE BLOOD COUNT 7.04 K/uL (4.8-10.8)
[2016-12-30] MEDS: HEPARIN SOD 5000 UNIT/0.5 ML CARP SQ SCH ×3 (06:09→21:53)
[2016-12-30 06:38] LABS: BUN/CREATININE RATIO 24.3 (10-20); CALCIUM 8.1 mg/dl (8.5-10.1); CREATININE 2.2 mg/dl (0.60-1.20); FERRITIN 81.9 ng/ml (8.0-388.0); POTASSIUM 4.2 mmol/L (3.5-5.1)
[2016-12-30] MEDS: FUROSEMIDE INJ 40 MG in SYRINGE 0 ML IV SCH ×2 (08:50→16:49)
[2016-12-30] MEDS: PANTOprazole INJ 40 MG in SYRINGE 0 ML IV SCH (08:50)
[2016-12-30] MEDS: CITALOPRAM 20 MG TAB PO SCH (08:51)
[2016-12-30] MEDS: ISOSORBIDE MONONITRATE 30 MG TABCR PO SCH (08:51)
--- NOTE | 2016-12-30 09:22 | Clinical Documentation Query ---
CLINICAL DOCUMENTATION QUERY Dr. MAYER, The diagnosis of acute on chronic respiratory failure had been documented consistently by the ER, H/P and pulmonary franchise field consultant. It has since been removed from the progress notes. If your patient is being treated for acute on chronic hypercapnic respiratory failure, please continue to document this diagnosis throughout the clinical record and on the discharge summary. In your clinical opinion is this patient being managed for: ( + ) Acute and chronic hypercapnic respiratory failure ( ) Other explanation of clinical findings (Please Explain) ( ) Unable to determine (Please Define) ( ) Need to Discuss ( ) Not Agree IF IN AGREEMENT, YOU MUST DOCUMENT ABOVE DIAGNOSTIC STATEMENT IN DAILY PROGRESS NOTES AND DISCHARGE SUMMARY. This document is not part of the patient's record. Thank You, Dionne Wallace RN [phone]
--- NOTE | 2016-12-30 09:57 | Nephrology Progress Note ---
Nephrology Progress Note Date of Service: December 30, 2016. Subjective 76 yo female seen for ckd and volume overload. pt also presented with co2 narcosis and improved with bipap. pt currently does not want any dialysis if needed and refusing bipap at this time. pt feels good and inquiring about going home. Objective Date Time Temp Pulse Resp B/P Pulse Ox O2 Delivery O2 Flow Rate FiO2 12/30/16 08:20 94 Nasal Cannula 3.0 12/30/16 07:30 36.6 73 18 181/62 93 Nasal Cannula 2.0 12/30/16 04:35 36.8 74 20 170/62 95 Nasal Cannula 2.0 12/30/16 04:00 92 Nasal Cannula 3.0 12/30/16 00:19 37.0 77 20 161/61 94 3.0 12/30/16 00:00 92 Nasal Cannula 3.0 12/29/16 21:29 80 163/66 12/29/16 20:26 37.1 73 18 179/62 93 Nasal Cannula 2.5 12/29/16 20:00 92 Nasal Cannula 3.0 12/29/16 16:00 92 Nasal Cannula 3.0 12/29/16 15:11 36.9 74 22 157/52 92 Nasal Cannula 3.0 12/29/16 12:19 36.8 74 20 150/62 94 Nasal Cannula 3.0 12/29/16 12:00 94 Nasal Cannula 3.0 Physical Exam: General-aaox3, obese Eyes-no scleral icterus ENT-mmm Neck-supple Lungs-decreased at bases Heart-rrr Abdomen-bs+ s/nt/nd Extremities-no c/c/e Neuro-nonfocal Current Inpatient Medications Medications (Trade) Dose Ordered Sig/Pieter Route Start Time Stop Time Status Last Admin Dose Admin Heparin Sodium (Porcine) (Heparin Sq 5000 Unit/0.5ml) 5,000 unit Q8 SQ 12/28/16 14:00 01/27/17 13:59 12/30/16 06:09 5,000 UNIT Acetaminophen (Tylenol Tab) 650 mg Q4H PRN PO 12/28/16 12:15 01/27/17 12:14 12/30/16 00:41 650 MG Ondansetron HCl (Zofran Inj) 4 mg Q6H PRN IV 12/28/16 12:15 01/27/17 12:14 Nitroglycerin (Nitrostat Tab) 0.4 mg UD PRN SL 12/28/16 12:15 01/27/17 12:14 Polyethylene 17 gm 17 gm DAILY PRN PO 12/28/16 12:15 01/27/17 12:14 Furosemide/Syringe (Lasix Inj/ Syringe) 4 ml @ 4 mls/min BID17 IV 12/28/16 17:00 01/27/17 16:59 12/30/16 08:50 4 MLS/MIN Citalopram Hydrobromide (celeXA TAB) 20 mg DAILY PO 12/29/16 09:00 01/28/17 08:59 12/30/16 08:51 20 MG Hydralazine HCl (Apresoline Tab) 25 mg BID PO 12/28/16 21:00 01/27/17 20:59 12/30/16 08:51 25 MG Isosorbide Mononitrate 30 mg 30 mg DAILY PO 12/29/16 09:00 01/28/17 08:59 12/30/16 08:51 30 MG Pantoprazole Sodium 40 mg/ Syringe 10 ml @ 5 mls/min DAILY IV 12/29/16 09:00 01/28/17 08:59 12/30/16 08:50 5 MLS/MIN Doxycycline Hyclate 100 mg/ Dextrose 110 ml @ 50 mls/hr Q12H IV 12/28/16 14:00 01/04/17 13:59 12/30/16 02:15 50 MLS/HR Methylprednisolone Sodium Succinate/ Syringe (Solu-Medrol IV/ Syringe) 0.64 ml @ 1.5 mls/min Q8H IV 12/28/16 18:00 01/27/17 17:59 12/30/16 02:15 1.5 MLS/MIN Hydralazine HCl (HydrALAZINE INJ) 5 mg Q6H PRN IV. 12/28/16 22:15 01/27/17 22:14 Trazodone HCl (Desyrel Tab) 25 mg HS PRN PO 12/29/16 23:30 01/28/17 23:29 12/29/16 23:39 25 MG Miconazole Nitrate (Desenex Powder) 1 appln PRN PRN EXT 12/30/16 05:30 01/29/17 05:29 Last 24 Hours Test 12/30/16 05:23 12/30/16 09:13 White Blood Count 7.04 K/uL Red Blood Count 2.79 M/uL Hemoglobin 8.8 g/dL Hematocrit 29.9 % Mean Corpuscular Volume 107.2 fL Mean Corpuscular Hemoglobin 31.5 pg Mean Corpuscular Hemoglobin Concent 29.4 g/dl RDW Standard Deviation 53.4 fL RDW Coefficient of Variation 13.6 % Platelet Count 227 K/uL Mean Platelet Volume 9.5 fL Sodium Level 142 mmol/L Potassium Level 4.2 mmol/L Chloride Level 99 mmol/L Carbon Dioxide Level 42 mmol/L Anion Gap 1.0 mmol/L Blood Urea Nitrogen 53 mg/dl Creatinine 2.20 mg/dl Est Creatinine Clear Calc Drug Dose 27.1 ml/min Estimated GFR () 24.8 Estimated GFR (Non- 21.4 BUN/Creatinine Ratio 24.3 Random Glucose 142 mg/dl Calcium Level 8.1 mg/dl Iron Level 59 mcg/dl Total Iron Binding Capacity 250 mcg/dl Transferrin 200 mg/dl Transferrin % Saturation 21 % Ferritin 81.9 ng/ml Pro-B-Type Natriuretic Peptide 5253 pg/ml Assessment & Plan ckd stage 4-creatinine stable and would continue current diuretics to help optimize pulmonary function. pt appears more comfortable and breathing better. Anemia of ckd-pt with good iron levels. could consider procrit as an outpatient if patient is agreeable. for now, follow hg levels. no indication for transfusion contraction alkalosis vs appropriate compensation-elevated bicarb levels-would like to repeat abg to follow ph. pt would benefit from bipap but pt currently refusing. could consider doing diamox for several days to help lower bicarb depending on abg.
--- NOTE | 2016-12-30 12:27 | Progress Note ---
Internal Med Progress Note Date of Service: December 30, 2016. Provider Documentation: SUBJECTIVE: The patient was seen and examined Feels better today Denies any SOB A little drowsy Does not want to use BIPAP or CPAP OBJECTIVE: Vital Signs-as noted below Exam: General-No distress at rest Eyes-normal ENT-normal Neck-supple Lungs-Decreased n=breath sound bilaterally Minimal crackles at the bases Heart-Regular,no murmur appreciated Abdomen-Benign,no masses,bowel sound present Extremities-Trace edema bilaterally Neuro-AAOx3 Lab data as noted below. ASSESSMENT & PLAN: Acute Diastolic CHF SOB with significant Weight Gain ECHO::Small, underfilled LV chamber size with mild concentric LVH. * Hyperdynamic LV systolic function, EF >70%. * No segmental left ventricular wall motion abnormalities are noted. * Grade I diastolic dysfunction. * The aortic valve is not well visualized. * Moderately calcified aortic valve. * There is no significant aortic regurgitation. * Moderate valvular aortic stenosis. * Moderate to severe MAC. * Moderate left atrial enlargement. Clinically better Has been on Lasix -continue for now Acute on Chronic Stage IV Renal disease -likely secondary to intravascular dehydration -appreciate Nephrology input -Renal function is slightly better -Refusing Dialysis in future Acute On Chronic Hypercapnic respiratory failure COPD exacerbation and hypercapnia ,increased CO2 to >40 Has been on IV steroid,Nebs and Oxygen Clinically better but a little drowsy today Convinced to use BIPAP HTN-elevated Will adjust medication Will increase Hydralazine to 50mg BID Anemia Hb >8 Likely secondary to CKD Morbid Obesity Depression DVT proph-heparin 5K SQ DNR-confirmed with on admission Vital Signs: Date Time Temp Pulse Resp B/P Pulse Ox O2 Delivery O2 Flow Rate FiO2 12/30/16 11:47 94 Nasal Cannula 3.0 12/30/16 11:36 36.5 68 19 190/72 91 Nasal Cannula 2.0 12/30/16 08:20 94 Nasal Cannula 3.0 12/30/16 07:30 36.6 73 18 181/62 93 Nasal Cannula 2.0 12/30/16 04:35 36.8 74 20 170/62 95 Nasal Cannula 2.0 12/30/16 04:00 92 Nasal Cannula 3.0 12/30/16 00:19 37.0 77 20 161/61 94 3.0 12/30/16 00:00 92 Nasal Cannula 3.0 12/29/16 21:29 80 163/66 12/29/16 20:26 37.1 73 18 179/62 93 Nasal Cannula 2.5 12/29/16 20:00 92 Nasal Cannula 3.0 12/29/16 16:00 92 Nasal Cannula 3.0 12/29/16 15:11 36.9 74 22 157/52 92 Nasal Cannula 3.0 Lab Results: Results Past 24 Hours Test 12/30/16 05:23 Range/Units White Blood Count 7.04 4.8-10.8 K/uL Red Blood Count 2.79 4.2-5.4 M/uL Hemoglobin 8.8 12.0-16.0 g/dL Hematocrit 29.9 37-47 % Mean Corpuscular Volume 107.2 80-100 fL Mean Corpuscular Hemoglobin 31.5 25-34 pg Mean Corpuscular Hemoglobin Concent 29.4 32-36 g/dl RDW Standard Deviation 53.4 36.4-46.3 fL RDW Coefficient of Variation 13.6 11.5-14.5 % Platelet Count 227 130-400 K/uL Mean Platelet Volume 9.5 7.4-10.4 fL Sodium Level 142 136-145 mmol/L Potassium Level 4.2 3.5-5.1 mmol/L Chloride Level 99 98-107 mmol/L Carbon Dioxide Level 42 21-32 mmol/L Anion Gap 1.0 3-11 mmol/L Blood Urea Nitrogen 53 7-18 mg/dl Creatinine 2.20 0.60-1.20 mg/dl Est Creatinine Clear Calc Drug Dose 27.1 ml/min Estimated GFR () 24.8 Estimated GFR (Non- 21.4 BUN/Creatinine Ratio 24.3 10-20 Random Glucose 142 70-99 mg/dl Calcium Level 8.1 8.5-10.1 mg/dl Iron Level 59 35-150 mcg/dl Total Iron Binding Capacity 250 250-450 mcg/dl Transferrin 200 200-360 mg/dl Transferrin % Saturation 21 15-50 % Ferritin 81.9 8.0-388.0 ng/ml Pro-B-Type Natriuretic Peptide 5253 0-900 pg/ml
[2016-12-30] MEDS: HydrALAZINE HCL 20 MG/ML VIAL IV. PRN (12:30)
[2016-12-30] MEDS: DOXYCYCLINE HYCLATE 100 MG CAP PO SCH (16:50)
[2016-12-30] MEDS: TRAZODONE HCL 50 MG TAB PO PRN (21:54)
[2016-12-31] VITALS (12 sets, daily range): BP systolic 155–191; BP diastolic 52–73; PULSE 69–81; TEMP 36.5–37.1; O2SAT 90–96
[2016-12-31] MEDS: METHYLPREDNISOLONE IV 40 MG in SYRINGE 0 ML IV SCH ×3 (02:13→21:13)
[2016-12-31] MEDS: HEPARIN SOD 5000 UNIT/0.5 ML CARP SQ SCH ×3 (05:59→21:15)
[2016-12-31 08:09] LABS: BUN/CREATININE RATIO 28.3 (10-20); CALCIUM 7.9 mg/dl (8.5-10.1); CREATININE 2.3 mg/dl (0.60-1.20); MAGNESIUM 1.8 mg/dl (1.8-2.4); PHOSPHORUS 5.1 mg/dl (2.5-4.9)
[2016-12-31 08:12] LABS: HEMATOCRIT 31.7 % (37-47); MEAN CELL VOLUME 108.2 fL (80-100); MEAN CORPUSCULAR HEMOGLOBIN 32.1 pg (25-34); MEAN CORPUSCULAR HGB CONC 29.7 g/dl (32-36); MEAN PLATELET VOLUME 9.6 fL (7.4-10.4); PLATELET COUNT 249 K/uL (130-400); RED BLOOD COUNT 2.93 M/uL (4.2-5.4); WHITE BLOOD COUNT 9.88 K/uL (4.8-10.8)
[2016-12-31] MEDS: PANTOprazole INJ 40 MG in SYRINGE 0 ML IV SCH (09:34)
[2016-12-31] MEDS: DOXYCYCLINE HYCLATE 100 MG CAP PO SCH (09:35)
[2016-12-31] MEDS: FUROSEMIDE INJ 40 MG in SYRINGE 0 ML IV SCH ×2 (09:35→16:33)
[2016-12-31] MEDS: ISOSORBIDE MONONITRATE 30 MG TABCR PO SCH (09:35)
[2016-12-31] MEDS: CITALOPRAM 20 MG TAB PO SCH (09:36)
--- NOTE | 2016-12-31 11:57 | PROGRESS NOTE ---
DATE: 12/30/2016 DATE: 12/30/2016. PROBLEM LIST: Includes: 1. Acute on chronic respiratory failure with CO2 retention 2. End-stage chronic obstructive pulmonary disease. 3.CKD stage IV . SUBJECTIVE: The patient reports she is feeling much better today. She states her breathing has improved. She states her breathing feels like she is pretty much back to her baseline level. She has no cough, no wheeze, no congestion, no chest heaviness or tightness. She feels that she is not confused. No lightheadedness or dizziness. She is able to get up and move around the room without much difficulty. She states she did get a little bit short of breath with transfer from her bed to her chair. No other concerns or problems. No fever, no chills, no sweats, no abdominal pain, no nausea or vomiting, no chest pain, no palpitations. She does have some swelling in her legs, but that is improving. She states that her urinary output is improving as well. OBJECTIVE: GENERAL: The patient is a 76-year-old female sitting at bedside eating her lunch. She is alert and oriented x3. Mood is good. Affect is good. VITAL SIGNS: Temp 36.5, pulse 68, respiration 19, blood pressure is 190/72, pulse ox 91-94% on 2 liters. HEAD, EYES, EARS, NOSE, AND THROAT: Normocephalic, atraumatic. Pupils equal, round and reactive to light and accommodation. Extraocular movements are intact. [place] moist gingival and buccal mucosa. NECK: Supple. No mass, no adenopathy, no bruit. CHEST: Actually improved breath sounds compared to yesterday. I do not appreciate any wheeze. No rale, no rhonchi at this time. CARDIOVASCULAR: Regular rate and rhythm. There are no murmurs, gallops or rubs. ABDOMEN: Bowel sounds are present. Abdomen soft, nontender. No guarding, rigidity or organomegaly. EXTREMITIES: She has +1 edema. No tenderness. No cyanosis or clubbing. NEUROLOGIC: Cranial nerves II through XII are intact. No focal deficit noted. LABORATORY DATA: Shows a white count of 7000, H\T\H of 8.8 and 29.9, platelet count 227,000. Serum CO2 42, BUN 53, creatinine 2.2. No new imaging data at this time. IMPRESSION: 1. This is a 76-year-old female with multiple problems. Main problem is acute on chronic respiratory failure with hypercarbia. Yesterday I had a long discussion with her about using BiPAP to help improve quality of life as well as hopefully to decrease hospitalization. She states that she did think about it last night and that she is agreeable to using it at this point. Hopefully she can get some improvement from it. I think this will help her breathing in multiple aspects. I think it will also help some of the cardiac issues she has had. For now recommend to try and continue BiPAP while asleep and through the day as tolerates. 2. Chronic obstructive pulmonary disease exacerbation. Continue doxycycline and Solu-Medrol, start to taper Solu-Medrol. 3. Chronic kidney disease. 1. Continue BiPAP as long as patient is agreeable. 2. We will start to taper the Solu-Medrol and convert over to oral prednisone. 3. Continue the rest of medications as they are. 4. Continue to follow through hospitalization. Patient and case reviewed and plan agreed upon. PATITO
[2016-12-31] MEDS ORDERED: LEVOFLOXACIN 500 MG TAB PO ONE (15:00)
--- NOTE | 2016-12-31 15:30 | Nephrology Progress Note ---
Nephrology Progress Note Date of Service: December 31, 2016. Subjective 76 yo female seen for ckd and volume overload. pt also presented with co2 narcosis and improved with bipap. pt currently does not want any dialysis if needed. Patient was agreeable to 4 hours of BiPAP this morning. She has O2 for home but not biPAP. would be agreeable to doing biPAP at home. refused ABG. appetite is good. no chest pain. SOB is stable pt feels good and inquiring about going home. Objective Date Time Temp Pulse Resp B/P Pulse Ox O2 Delivery O2 Flow Rate FiO2 12/31/16 12:00 94 Nasal Cannula 3.0 12/31/16 11:21 36.5 76 19 160/61 90 CPAP 12/31/16 11:07 74 90 3.0 12/31/16 10:21 95 3.0 12/31/16 08:00 94 Nasal Cannula 3.0 12/31/16 07:01 36.5 78 18 171/61 94 Nasal Cannula 2.0 12/31/16 04:00 Nasal Cannula 3.0 12/31/16 03:59 36.7 73 18 177/52 93 2.0 12/31/16 00:01 37.1 75 20 155/63 96 2.0 12/31/16 00:00 Nasal Cannula 3.0 12/30/16 20:13 37.0 75 18 185/69 92 Nasal Cannula 2.0 12/30/16 20:00 91 Nasal Cannula 3.0 12/30/16 17:55 78 170/64 12/30/16 16:48 72 183/68 12/30/16 16:00 91 Nasal Cannula 3.0 Physical Exam: General-aaox3, obese Eyes-no scleral icterus ENT-mmm Neck-supple Lungs-decreased at bases Heart-rrr Abdomen-bs+ s/nt/nd Extremities-no c/c/e Neuro-nonfocal Current Inpatient Medications Medications (Trade) Dose Ordered Sig/Pieter Route Start Time Stop Time Status Last Admin Dose Admin Heparin Sodium (Porcine) (Heparin Sq 5000 Unit/0.5ml) 5,000 unit Q8 SQ 12/28/16 14:00 01/27/17 13:59 12/31/16 13:40 5,000 UNIT Acetaminophen (Tylenol Tab) 650 mg Q4H PRN PO 12/28/16 12:15 01/27/17 12:14 12/30/16 21:51 650 MG Ondansetron HCl (Zofran Inj) 4 mg Q6H PRN IV 12/28/16 12:15 01/27/17 12:14 Nitroglycerin (Nitrostat Tab) 0.4 mg UD PRN SL 12/28/16 12:15 01/27/17 12:14 Polyethylene 17 gm 17 gm DAILY PRN PO 12/28/16 12:15 01/27/17 12:14 Furosemide/Syringe (Lasix Inj/ Syringe) 4 ml @ 4 mls/min BID17 IV 12/28/16 17:00 01/27/17 16:59 12/31/16 09:35 4 MLS/MIN Citalopram Hydrobromide (celeXA TAB) 20 mg DAILY PO 12/29/16 09:00 01/28/17 08:59 12/31/16 09:36 20 MG Isosorbide Mononitrate 30 mg 30 mg DAILY PO 12/29/16 09:00 01/28/17 08:59 12/31/16 09:35 30 MG Pantoprazole Sodium 40 mg/ Syringe 10 ml @ 5 mls/min DAILY IV 12/29/16 09:00 01/28/17 08:59 12/31/16 09:34 5 MLS/MIN Methylprednisolone Sodium Succinate/ Syringe (Solu-Medrol IV/ Syringe) 0.64 ml @ 1.5 mls/min Q8H IV 12/28/16 18:00 01/27/17 17:59 12/31/16 09:37 1.5 MLS/MIN Hydralazine HCl (HydrALAZINE INJ) 5 mg Q6H PRN IV. 12/28/16 22:15 01/27/17 22:14 12/30/16 12:30 5 MG Trazodone HCl (Desyrel Tab) 25 mg HS PRN PO 12/29/16 23:30 01/28/17 23:29 12/30/16 21:54 25 MG Miconazole Nitrate (Desenex Powder) 1 appln PRN PRN EXT 12/30/16 05:30 01/29/17 05:29 12/30/16 21:56 1 APPLN Hydralazine HCl (Apresoline Tab) 50 mg BID PO 12/30/16 21:00 01/29/17 20:59 12/31/16 09:34 50 MG Levofloxacin (Levaquin Tab) 500 mg Q2D@1100 PO 01/02/17 11:00 01/07/17 10:59 Last 24 Hours Test 12/31/16 06:56 White Blood Count 9.88 K/uL Red Blood Count 2.93 M/uL Hemoglobin 9.4 g/dL Hematocrit 31.7 % Mean Corpuscular Volume 108.2 fL Mean Corpuscular Hemoglobin 32.1 pg Mean Corpuscular Hemoglobin Concent 29.7 g/dl RDW Standard Deviation 53.3 fL RDW Coefficient of Variation 13.7 % Platelet Count 249 K/uL Mean Platelet Volume 9.6 fL Sodium Level 142 mmol/L Potassium Level 4.0 mmol/L Chloride Level 97 mmol/L Carbon Dioxide Level 42 mmol/L Anion Gap 4.0 mmol/L Blood Urea Nitrogen 65 mg/dl Creatinine 2.30 mg/dl Est Creatinine Clear Calc Drug Dose 25.4 ml/min Estimated GFR () 23.5 Estimated GFR (Non- 20.3 BUN/Creatinine Ratio 28.3 Random Glucose 143 mg/dl Calcium Level 7.9 mg/dl Phosphorus Level 5.1 mg/dl Magnesium Level 1.8 mg/dl Pro-B-Type Natriuretic Peptide 5248 pg/ml Assessment & Plan ckd stage 4-creatinine is 2.3 question if this is slightly above baseline. for now, would continue current diuretics to help optimize pulmonary function. Patient states that her breathing is better and SOB is at baseline. will continue to follow trends. no need for emergent dialysis at this time. Would consider d/c finch tomorrow but with current IV lasix would hold on it today. Anemia of ckd- last hgb 9.4. pt with good iron levels. could consider procrit as an outpatient if patient is agreeable. for now, follow hg levels. no indication for transfusion contraction alkalosis vs appropriate compensation-elevated bicarb levels- patient refusing abg. agreeable to biPAP. Will continue to follow bicarb level. This patient was seen and treated with direct collaboration with Dr. Escobar. Thank you for the opportunity to participate in this patient's care. Appreciate the Consult. ATTENDING NOTE: I performed a history and physical examination of the patient, including specifically on history- pt using bipap now for about four hours which is a big improvement, on physical exam-lungs decreased at the bases, pt is obese, and my impression and plan are ckd stage 4-creatinine stable despite iv diuresis, pt breathing better and more alert, plan on removing finch in the morning. I have discussed the patient's management with Jaquelin Grace PA-C, Please refer to above note for the documented findings and plan of care. Alirio Oncu DO
--- NOTE | 2016-12-31 15:51 | Progress Note ---
Internal Med Progress Note Date of Service: December 31, 2016. Provider Documentation: SUBJECTIVE: The patient was seen and examined Feels better today but very drowsy Denies any SOB Did not use any C or BIPAP last night OBJECTIVE: Vital Signs-as noted below Exam: General-No distress at rest Eyes-normal ENT-normal Neck-supple Lungs-Decreased breath sound bilaterally Minimal crackles at the bases Heart-Regular,no murmur appreciated Abdomen-Benign,no masses,bowel sound present Extremities-Trace edema bilaterally Neuro-AAOx3 Lab data as noted below. ASSESSMENT & PLAN: Acute Diastolic CHF SOB with significant Weight Gain ECHO::Small, underfilled LV chamber size with mild concentric LVH. * Hyperdynamic LV systolic function, EF >70%. * No segmental left ventricular wall motion abnormalities are noted. * Grade I diastolic dysfunction. * The aortic valve is not well visualized. * Moderately calcified aortic valve. * There is no significant aortic regurgitation. * Moderate valvular aortic stenosis. * Moderate to severe MAC. * Moderate left atrial enlargement. Clinically better Has been on Lasix -continue for now Acute On Chronic Hypercapnic respiratory failure COPD exacerbation and hypercapnia ,increased CO2 to >40 Has been on IV steroid,Nebs and Oxygen Agreeable to use BIPAP tonight If CO2 level is satisfactory in AM ,will discharge home Sleep study as an OP Acute on Chronic Stage IV Renal disease -likely secondary to intravascular dehydration -appreciate Nephrology input -Renal function is slightly better -Refusing Dialysis in future HTN-elevated Will adjust medication Will increase Hydralazine to 50mg BID BP is still elevated -increase dose tomorrow if remains high tomorrow UTI Started on Levaquin to cover respiratory pathogens Anemia Hb >8 Likely secondary to CKD Morbid Obesity Depression DVT proph-heparin 5K SQ DNR-confirmed with on admission Vital Signs: Date Time Temp Pulse Resp B/P Pulse Ox O2 Delivery O2 Flow Rate FiO2 12/31/16 15:29 37.0 69 20 191/68 93 Nasal Cannula 3.0 12/31/16 12:00 94 Nasal Cannula 3.0 12/31/16 11:21 36.5 76 19 160/61 90 CPAP 12/31/16 11:07 74 90 3.0 12/31/16 10:21 95 3.0 12/31/16 08:00 94 Nasal Cannula 3.0 12/31/16 07:01 36.5 78 18 171/61 94 Nasal Cannula 2.0 12/31/16 04:00 Nasal Cannula 3.0 12/31/16 03:59 36.7 73 18 177/52 93 2.0 12/31/16 00:01 37.1 75 20 155/63 96 2.0 12/31/16 00:00 Nasal Cannula 3.0 12/30/16 20:13 37.0 75 18 185/69 92 Nasal Cannula 2.0 12/30/16 20:00 91 Nasal Cannula 3.0 12/30/16 17:55 78 170/64 12/30/16 16:48 72 183/68 12/30/16 16:00 91 Nasal Cannula 3.0 Lab Results: Results Past 24 Hours Test 12/31/16 06:56 Range/Units White Blood Count 9.88 4.8-10.8 K/uL Red Blood Count 2.93 4.2-5.4 M/uL Hemoglobin 9.4 12.0-16.0 g/dL Hematocrit 31.7 37-47 % Mean Corpuscular Volume 108.2 80-100 fL Mean Corpuscular Hemoglobin 32.1 25-34 pg Mean Corpuscular Hemoglobin Concent 29.7 32-36 g/dl RDW Standard Deviation 53.3 36.4-46.3 fL RDW Coefficient of Variation 13.7 11.5-14.5 % Platelet Count 249 130-400 K/uL Mean Platelet Volume 9.6 7.4-10.4 fL Sodium Level 142 136-145 mmol/L Potassium Level 4.0 3.5-5.1 mmol/L Chloride Level 97 98-107 mmol/L Carbon Dioxide Level 42 21-32 mmol/L Anion Gap 4.0 3-11 mmol/L Blood Urea Nitrogen 65 7-18 mg/dl Creatinine 2.30 0.60-1.20 mg/dl Est Creatinine Clear Calc Drug Dose 25.4 ml/min Estimated GFR () 23.5 Estimated GFR (Non- 20.3 BUN/Creatinine Ratio 28.3 10-20 Random Glucose 143 70-99 mg/dl Calcium Level 7.9 8.5-10.1 mg/dl Phosphorus Level 5.1 2.5-4.9 mg/dl Magnesium Level 1.8 1.8-2.4 mg/dl Pro-B-Type Natriuretic Peptide 5248 0-900 pg/ml
[2016-12-31] MEDS: HydrALAZINE HCL 20 MG/ML VIAL IV. PRN (16:32)
[2016-12-31] MEDS: TRAZODONE HCL 50 MG TAB PO PRN (21:12)
[2016-12-31] MEDS: ACETAMINOPHEN 325 MG TAB PO PRN (22:45)
[2017-01-01] VITALS (11 sets, daily range): BP systolic 154–204; BP diastolic 59–75; PULSE 64–79; TEMP 36–37.2; O2SAT 90–96
[2017-01-01] MEDS: HEPARIN SOD 5000 UNIT/0.5 ML CARP SQ SCH ×3 (06:03→20:09)
[2017-01-01 06:11] LABS: HEMATOCRIT 32.2 % (37-47); MEAN CELL VOLUME 105.9 fL (80-100); MEAN CORPUSCULAR HEMOGLOBIN 31.3 pg (25-34); MEAN CORPUSCULAR HGB CONC 29.5 g/dl (32-36); MEAN PLATELET VOLUME 9.3 fL (7.4-10.4); PLATELET COUNT 205 K/uL (130-400); RED BLOOD COUNT 3.04 M/uL (4.2-5.4); WHITE BLOOD COUNT 8.34 K/uL (4.8-10.8)
[2017-01-01] MEDS: FUROSEMIDE INJ 40 MG in SYRINGE 0 ML IV SCH (07:30)
[2017-01-01] MEDS: PANTOprazole INJ 40 MG in SYRINGE 0 ML IV SCH (07:30)
[2017-01-01] MEDS: ISOSORBIDE MONONITRATE 30 MG TABCR PO SCH (07:30)
[2017-01-01] MEDS: CITALOPRAM 20 MG TAB PO SCH (07:31)
[2017-01-01 08:42] LABS: BUN/CREATININE RATIO 30.5 (10-20); CREATININE 2.5 mg/dl (0.60-1.20); POTASSIUM 3.8 mmol/L (3.5-5.1)
[2017-01-01 09:01] LABS: CALCIUM 7.9 mg/dl (8.5-10.1)
--- NOTE | 2017-01-01 09:25 | Nephrology Progress Note ---
Nephrology Progress Note Date of Service: January 01, 2017. Subjective 76 yo female seen for ckd and volume overload. pt also presented with co2 narcosis and improved with bipap. Patient had BiPAP last night. states that she is feeling better today. finch d/c and patient being monitored for voiding. refused ABG. appetite is good. no chest pain. SOB is stable. Eager to go home. Objective Date Time Temp Pulse Resp B/P Pulse Ox O2 Delivery O2 Flow Rate FiO2 01/01/17 08:06 95 Nasal Cannula 3.0 01/01/17 08:00 36.0 79 20 204/74 90 BiPAP 203/64 01/01/17 04:13 37.0 72 20 170/66 95 BiPAP 01/01/17 04:05 Nasal Cannula 3.0 01/01/17 00:05 Nasal Cannula 3.0 12/31/16 23:18 71 92 3.0 12/31/16 23:12 37.1 76 18 179/64 93 Nasal Cannula 3.0 12/31/16 20:20 Nasal Cannula 3.0 12/31/16 19:06 36.9 81 20 178/73 91 Nasal Cannula 3.0 12/31/16 16:10 Nasal Cannula 3.0 12/31/16 15:29 37.0 69 20 191/68 93 Nasal Cannula 3.0 12/31/16 12:00 94 Nasal Cannula 3.0 12/31/16 11:21 36.5 76 19 160/61 90 CPAP 12/31/16 11:07 74 90 3.0 12/31/16 10:21 95 3.0 Physical Exam: General-aaox3, obese Eyes-no scleral icterus ENT-mmm Neck-supple Lungs-decreased at bases Heart-rrr Abdomen-bs+ s/nt/nd Extremities-no c/c/e Neuro-nonfocal Current Inpatient Medications Medications (Trade) Dose Ordered Sig/Pieter Route Start Time Stop Time Status Last Admin Dose Admin Heparin Sodium (Porcine) (Heparin Sq 5000 Unit/0.5ml) 5,000 unit Q8 SQ 12/28/16 14:00 01/27/17 13:59 01/01/17 06:03 5,000 UNIT Acetaminophen (Tylenol Tab) 650 mg Q4H PRN PO 12/28/16 12:15 01/27/17 12:14 12/31/16 22:45 650 MG Ondansetron HCl (Zofran Inj) 4 mg Q6H PRN IV 12/28/16 12:15 01/27/17 12:14 Nitroglycerin (Nitrostat Tab) 0.4 mg UD PRN SL 12/28/16 12:15 01/27/17 12:14 Polyethylene 17 gm 17 gm DAILY PRN PO 12/28/16 12:15 01/27/17 12:14 Furosemide/Syringe (Lasix Inj/ Syringe) 4 ml @ 4 mls/min BID17 IV 12/28/16 17:00 01/27/17 16:59 01/01/17 07:30 4 MLS/MIN Citalopram Hydrobromide (celeXA TAB) 20 mg DAILY PO 12/29/16 09:00 01/28/17 08:59 01/01/17 07:31 20 MG Isosorbide Mononitrate 30 mg 30 mg DAILY PO 12/29/16 09:00 01/28/17 08:59 01/01/17 07:30 30 MG Pantoprazole Sodium/Syringe (Protonix Inj/ Syringe) 10 ml @ 5 mls/min DAILY IV 12/29/16 09:00 01/28/17 08:59 01/01/17 07:30 5 MLS/MIN Hydralazine HCl (HydrALAZINE INJ) 5 mg Q6H PRN IV. 12/28/16 22:15 01/27/17 22:14 12/31/16 16:32 5 MG Trazodone HCl (Desyrel Tab) 25 mg HS PRN PO 12/29/16 23:30 01/28/17 23:29 12/31/16 21:12 25 MG Miconazole Nitrate (Desenex Powder) 1 appln PRN PRN EXT 12/30/16 05:30 01/29/17 05:29 12/30/16 21:56 1 APPLN Hydralazine HCl (Apresoline Tab) 50 mg BID PO 12/30/16 21:00 01/29/17 20:59 01/01/17 07:30 50 MG Levofloxacin 500 mg 500 mg Q2D@1100 PO 01/02/17 11:00 01/07/17 10:59 Methylprednisolone Sodium Succinate/ Syringe (Solu-Medrol IV/ Syringe) 0.64 ml @ 1.5 mls/min Q12H IV 12/31/16 22:00 01/30/17 21:59 12/31/16 21:13 1.5 MLS/MIN Last 24 Hours Test 01/01/17 05:36 White Blood Count 8.34 K/uL Red Blood Count 3.04 M/uL Hemoglobin 9.5 g/dL Hematocrit 32.2 % Mean Corpuscular Volume 105.9 fL Mean Corpuscular Hemoglobin 31.3 pg Mean Corpuscular Hemoglobin Concent 29.5 g/dl RDW Standard Deviation 53.2 fL RDW Coefficient of Variation 13.7 % Platelet Count 205 K/uL Mean Platelet Volume 9.3 fL Nucleated RBC Absolute Count (auto) 0.02 K/uL Nucleated Red Blood Cells % 0.2 % Sodium Level 140 mmol/L Potassium Level 3.8 mmol/L Chloride Level 95 mmol/L Carbon Dioxide Level 40 mmol/L Anion Gap 5.0 mmol/L Blood Urea Nitrogen 76 mg/dl Creatinine 2.50 mg/dl Est Creatinine Clear Calc Drug Dose 23.2 ml/min Estimated GFR () 21.2 Estimated GFR (Non- 18.3 BUN/Creatinine Ratio 30.5 Random Glucose 127 mg/dl Calcium Level 7.9 mg/dl Assessment & Plan ckd stage 4: Creatinine is 2.5. continuing to follow. will switch IV lasix to PO lasix. d/c finch and monitor for any urinary retention. breathing is better per patient and SOB at baseline. no indication for dialysis at this time. Anemia of ckd- last hgb 9.5. pt with good iron levels. Will follow with patient as outpt for possible TROY therapy. contraction alkalosis vs appropriate compensation-elevated bicarb levels-lower today-patient refusing abg. agreeable to biPAP as outpt and would recommend patient have BiPAP arranged for home use. Defer to primary service. This patient was seen and treated with direct collaboration with Dr. Escobar. Thank you for the opportunity to participate in this patient's care. Appreciate the Consult. ATTENDING NOTE: I performed a history and physical examination of the patient, including specifically on history-pt oob to chair and inquiring about going home, removed the finch and urinating well, on physical exam-obese, decreased breath sounds at bases, no edema, and my impression and plan are ckd stage 4, removed finch, transitioned from iv lasix to oral lasix and would recommend following up with Dr. Forrester her primary mechanical field engineer upon discharge. I have discussed the patient's management with Jaquelin Grace PA-C, Please refer to above note for the documented findings and plan of care. Alirio Oncu DO
[2017-01-01] MEDS: METHYLPREDNISOLONE IV 40 MG in SYRINGE 0 ML IV SCH ×2 (09:38→20:06)
[2017-01-01] MEDS ORDERED: HydrALAZINE HCL 20 MG/ML VIAL IV. PRN (12:00)
[2017-01-01] MEDS ORDERED: AMLODIPINE BESYLATE 5 MG TAB PO ONE (14:00)
--- NOTE | 2017-01-01 16:24 | Progress Note ---
Medicine Progress Note Date & Time of Visit: January 01, 2017 at 16:00. Subjective Pt was seen and examined Sitting in chair with no distress Pt said that she feels great she is eager to go home today she denies any chest pain, palpitation, dizziness Spoke to present in the home. Objective Last 8 Hrs Date Time Temp Pulse Resp B/P Pulse Ox O2 Delivery O2 Flow Rate FiO2 01/01/17 13:44 184/70 01/01/17 12:34 36.4 74 18 187/72 95 Nasal Cannula 3.0 01/01/17 12:03 95 Nasal Cannula 3.0 01/01/17 08:06 95 Nasal Cannula 3.0 Physical Exam: General- No acute distress, obese Head- atraumatic Eyes- PERRL, EOMI ENT- oropharynx clear Neck- supple, no JVD Lungs- clear to auscultation Heart- regular rhythm; +systolic murmur Abdomen- normal bowel sounds, soft Extremities- +edema, no calf tenderness Neuro- alert, oriented x 3; PERRL, EOMI; no facial palsy Skin- warm & dry Laboratory Results: Last 24 Hours Test 01/01/17 05:36 White Blood Count 8.34 K/uL Red Blood Count 3.04 M/uL Hemoglobin 9.5 g/dL Hematocrit 32.2 % Mean Corpuscular Volume 105.9 fL Mean Corpuscular Hemoglobin 31.3 pg Mean Corpuscular Hemoglobin Concent 29.5 g/dl RDW Standard Deviation 53.2 fL RDW Coefficient of Variation 13.7 % Platelet Count 205 K/uL Mean Platelet Volume 9.3 fL Nucleated RBC Absolute Count (auto) 0.02 K/uL Nucleated Red Blood Cells % 0.2 % Sodium Level 140 mmol/L Potassium Level 3.8 mmol/L Chloride Level 95 mmol/L Carbon Dioxide Level 40 mmol/L Anion Gap 5.0 mmol/L Blood Urea Nitrogen 76 mg/dl Creatinine 2.50 mg/dl Est Creatinine Clear Calc Drug Dose 23.2 ml/min Estimated GFR () 21.2 Estimated GFR (Non- 18.3 BUN/Creatinine Ratio 30.5 Random Glucose 127 mg/dl Calcium Level 7.9 mg/dl Assessment & Plan Acute on Chronic Hypercapnic Respiratory failure VBG on admission pH 7.25 and pCO2 85 COPD exacerbation and hypercapnia Has been using Bipap at night which seems to help Will get overnight pulse oximetry case discussed with Dr. Hamilton base on overnight oximetry and ABG result, will see if pt is qualify for BiPap Continue steroid, DuoNeb treatment Continue monitor Acute Diastolic CHF SOB with significant Weight Gain IV Lasix changed to PO lasix ECHO::Small, underfilled LV chamber size with mild concentric LVH. * Hyperdynamic LV systolic function, EF >70%. * No segmental left ventricular wall motion abnormalities are noted. * Grade I diastolic dysfunction. * The aortic valve is not well visualized. * Moderately calcified aortic valve. * There is no significant aortic regurgitation. * Moderate valvular aortic stenosis. * Moderate to severe MAC. * Moderate left atrial enlargement. Acute on Chronic Stage IV Renal disease -likely secondary to intravascular dehydration - Creatine 2.5 today - Refusing Dialysis in future - Continue monitor BMP - Nephro on Board HTN- Elevated BP On Hydralazine to 50mg BID Amlodipine 5 mg started (she was on amlodipine 10mg. 5mg is less likely to cause swelling) BP stays high will increase hydralazine UTI Continu Levaquin to cover respiratory pathogens Anemia Hb 9.5 Stable Morbid Obesity Counseling about weight loss and diet Depression Continue Celexa DVT px- heparin subq CODE STATUS DNR Consultants: Pulmonary PT/OT Current Inpatient Medications: Current Inpatient Medications Medications (Trade) Dose Ordered Sig/Pieter Route Start Time Stop Time Status Last Admin Dose Admin Heparin Sodium (Porcine) (Heparin Sq 5000 Unit/0.5ml) 5,000 unit Q8 SQ 12/28/16 14:00 01/27/17 13:59 01/01/17 13:36 5,000 UNIT Acetaminophen (Tylenol Tab) 650 mg Q4H PRN PO 12/28/16 12:15 01/27/17 12:14 12/31/16 22:45 650 MG Ondansetron HCl (Zofran Inj) 4 mg Q6H PRN IV 12/28/16 12:15 01/27/17 12:14 Nitroglycerin (Nitrostat Tab) 0.4 mg UD PRN SL 12/28/16 12:15 01/27/17 12:14 Polyethylene (Miralax Powder Packet) 17 gm DAILY PRN PO 12/28/16 12:15 01/27/17 12:14 Citalopram Hydrobromide (celeXA TAB) 20 mg DAILY PO 12/29/16 09:00 01/28/17 08:59 01/01/17 07:31 20 MG Isosorbide Mononitrate 30 mg 30 mg DAILY PO 12/29/16 09:00 01/28/17 08:59 01/01/17 07:30 30 MG Pantoprazole Sodium/Syringe (Protonix Inj/ Syringe) 10 ml @ 5 mls/min DAILY IV 12/29/16 09:00 01/28/17 08:59 01/01/17 07:30 5 MLS/MIN Trazodone HCl (Desyrel Tab) 25 mg HS PRN PO 12/29/16 23:30 01/28/17 23:29 12/31/16 21:12 25 MG Miconazole Nitrate (Desenex Powder) 1 appln PRN PRN EXT 12/30/16 05:30 01/29/17 05:29 12/30/16 21:56 1 APPLN Hydralazine HCl (Apresoline Tab) 50 mg BID PO 12/30/16 21:00 01/29/17 20:59 01/01/17 07:30 50 MG Levofloxacin 500 mg 500 mg Q2D@1100 PO 01/02/17 11:00 01/07/17 10:59 Methylprednisolone Sodium Succinate/ Syringe (Solu-Medrol IV/ Syringe) 0.64 ml @ 1.5 mls/min Q12H IV 12/31/16 22:00 01/30/17 21:59 01/01/17 09:38 1.5 MLS/MIN Furosemide (Lasix Tab) 40 mg BID17 PO 01/01/17 17:00 01/31/17 16:59 Hydralazine HCl (HydrALAZINE INJ) 10 mg Q6H PRN IV. 01/01/17 12:00 01/31/17 11:59 01/01/17 12:41 10 MG Amlodipine Besylate (Norvasc Tab) 5 mg QAM PO 01/02/17 09:00 02/01/17 08:59
[2017-01-01] MEDS: FUROSEMIDE 40 MG TAB PO SCH (17:46)
[2017-01-01] MEDS: TRAZODONE HCL 50 MG TAB PO PRN (23:42)
[2017-01-02] VITALS (8 sets, daily range): BP systolic 127–181; BP diastolic 62–81; PULSE 70–97; TEMP 36.3–37.5; O2SAT 92–98
[2017-01-02] MEDS: HEPARIN SOD 5000 UNIT/0.5 ML CARP SQ SCH ×3 (05:45→21:22)
[2017-01-02] MEDS: CITALOPRAM 20 MG TAB PO SCH (08:12)
[2017-01-02] MEDS: PANTOprazole INJ 40 MG in SYRINGE 0 ML IV SCH (08:13)
[2017-01-02] MEDS: METHYLPREDNISOLONE IV 40 MG in SYRINGE 0 ML IV SCH ×2 (08:13→21:23)
[2017-01-02] MEDS: AMLODIPINE BESYLATE 5 MG TAB PO SCH (08:13)
[2017-01-02] MEDS: FUROSEMIDE 40 MG TAB PO SCH ×2 (08:14→16:18)
[2017-01-02] MEDS: ISOSORBIDE MONONITRATE 30 MG TABCR PO SCH (08:30)
[2017-01-02 09:37] LABS: ARTERIAL BLD GAS O2 SATURATION 96.6 % (90-95); ARTERIAL BLOOD GAS BASE EXCESS 10.4 mEq/L (-9-1.8); ARTERIAL BLOOD GAS HCO3 40 mmol/L (19-24); ARTERIAL BLOOD GAS PO2 110 mm/Hg (80-95); ARTERIAL BLOOD GAS pH 7.26 (7.35-7.45)
[2017-01-02 09:38] LABS: ALLEN TEST POS (POS); O2 ADMINISTRATION 3 L
[2017-01-02 10:04] LABS: BUN/CREATININE RATIO 29.2 (10-20); CALCIUM 8.3 mg/dl (8.5-10.1); CREATININE 2.7 mg/dl (0.60-1.20); POTASSIUM 4.1 mmol/L (3.5-5.1)
[2017-01-02] MEDS ORDERED: LEVOFLOXACIN 500 MG TAB PO SCH (11:00)
--- NOTE | 2017-01-02 14:49 | Progress Note ---
Medicine Progress Note Date & Time of Visit: January 02, 2017 at 14:31. Subjective Pt was seen and examined Sitting in chair with no distress Pt is very eager to go home She refused to use the bipap last night She did not do the nocturnal oximetry test last night Denies any chest pain, palpitation, dizziness and SOB Objective Last 8 Hrs Date Time Temp Pulse Resp B/P Pulse Ox O2 Delivery O2 Flow Rate FiO2 01/02/17 12:00 Nasal Cannula 3.0 BiPAP 01/02/17 11:46 36.6 77 18 154/78 98 BiPAP 01/02/17 11:05 97 96 3.0 01/02/17 09:00 Nasal Cannula 3.0 01/02/17 07:22 36.6 74 17 163/81 93 Nasal Cannula 3.0 Physical Exam: General- No acute distress, obese Head- atraumatic Eyes- PERRL, EOMI ENT- oropharynx clear Neck- supple, no JVD Lungs- clear to auscultation Heart- regular rhythm; +systolic murmur Abdomen- normal bowel sounds, soft Extremities- +edema, no calf tenderness Neuro- alert, oriented x 3; PERRL, EOMI; no facial palsy Skin- warm & dry Laboratory Results: Last 24 Hours Test 01/02/17 09:15 Arterial Blood pH 7.26 Arterial Blood Partial Pressure CO2 90 mmHg Arterial Blood Partial Pressure O2 110 mm/Hg Arterial Blood HCO3 40 mmol/L Arterial Blood Oxygen Saturation 96.6 % Arterial Blood Base Excess 10.4 mEq/L Arterial Blood Gas Delivery 3 L Truong Test POS Sodium Level 143 mmol/L Potassium Level 4.1 mmol/L Chloride Level 95 mmol/L Carbon Dioxide Level 45 mmol/L Anion Gap 3.0 mmol/L Blood Urea Nitrogen 79 mg/dl Creatinine 2.70 mg/dl Est Creatinine Clear Calc Drug Dose 21.5 ml/min Estimated GFR () 19.3 Estimated GFR (Non- 16.7 BUN/Creatinine Ratio 29.2 Random Glucose 135 mg/dl Calcium Level 8.3 mg/dl Assessment & Plan Acute on Chronic Hypercapnic Respiratory failure VBG on admission pH 7.25 and pCO2 85 COPD exacerbation and hypercapnia Has been using Bipap at night which seems to help Will get overnight pulse oximetry case discussed with Dr. Hamilton base on overnight oximetry and ABG result, will see if pt is qualify for BiPap Continue steroid, DuoNeb treatment Continue monitor 01/02 Refused to use the Bipap last night ABG this morning showed respiratory acidosis (pH 7.26, pCo2 90) Refused to keep Bipap on to do the Nocturnal oximetry pulse Explained to pt that, i will not discharge her today because she will come back with CO2 retention Will try to get the nocturnal pulse oximetry tonight Acute Diastolic CHF SOB with significant Weight Gain IV Lasix changed to PO lasix ECHO::Small, underfilled LV chamber size with mild concentric LVH. * Hyperdynamic LV systolic function, EF >70%. * No segmental left ventricular wall motion abnormalities are noted. * Grade I diastolic dysfunction. * The aortic valve is not well visualized. * Moderately calcified aortic valve. * There is no significant aortic regurgitation. * Moderate valvular aortic stenosis. * Moderate to severe MAC. * Moderate left atrial enlargement. Acute on Chronic Stage IV Renal disease -likely secondary to intravascular dehydration - Creatine 2.7 today - Refusing Dialysis in future - Continue monitor BMP - Nephro on Board - Case discussed with nephrology HTN- Elevated BP On Hydralazine to 50mg BID Amlodipine 5 mg started (she was on amlodipine 10mg. 5mg is less likely to cause swelling) If BP stays high, will increase hydralazine tomorrow UTI Continue Levaquin to cover respiratory pathogens Anemia Hbg Stable Morbid Obesity Counseling about weight loss and diet Depression Continue Celexa DVT px- heparin subq CODE STATUS DNR Consultants: Pulmonary PT/OT Current Inpatient Medications: Current Inpatient Medications Medications (Trade) Dose Ordered Sig/Pieter Route Start Time Stop Time Status Last Admin Dose Admin Heparin Sodium (Porcine) (Heparin Sq 5000 Unit/0.5ml) 5,000 unit Q8 SQ 12/28/16 14:00 01/27/17 13:59 01/02/17 05:45 5,000 UNIT Acetaminophen (Tylenol Tab) 650 mg Q4H PRN PO 12/28/16 12:15 01/27/17 12:14 12/31/16 22:45 650 MG Ondansetron HCl (Zofran Inj) 4 mg Q6H PRN IV 12/28/16 12:15 01/27/17 12:14 Nitroglycerin (Nitrostat Tab) 0.4 mg UD PRN SL 12/28/16 12:15 01/27/17 12:14 Polyethylene (Miralax Powder Packet) 17 gm DAILY PRN PO 12/28/16 12:15 01/27/17 12:14 Citalopram Hydrobromide (celeXA TAB) 20 mg DAILY PO 12/29/16 09:00 01/28/17 08:59 01/02/17 08:12 20 MG Isosorbide Mononitrate 30 mg 30 mg DAILY PO 12/29/16 09:00 01/28/17 08:59 01/02/17 08:30 30 MG Pantoprazole Sodium/Syringe (Protonix Inj/ Syringe) 10 ml @ 5 mls/min DAILY IV 12/29/16 09:00 01/28/17 08:59 01/02/17 08:13 5 MLS/MIN Trazodone HCl (Desyrel Tab) 25 mg HS PRN PO 12/29/16 23:30 01/28/17 23:29 01/01/17 23:42 25 MG Miconazole Nitrate (Desenex Powder) 1 appln PRN PRN EXT 12/30/16 05:30 01/29/17 05:29 12/30/16 21:56 1 APPLN Hydralazine HCl (Apresoline Tab) 50 mg BID PO 12/30/16 21:00 01/29/17 20:59 01/02/17 08:12 50 MG Levofloxacin 500 mg 500 mg Q2D@1100 PO 01/02/17 11:00 01/07/17 10:59 01/02/17 12:02 500 MG Methylprednisolone Sodium Succinate/ Syringe (Solu-Medrol IV/ Syringe) 0.64 ml @ 1.5 mls/min Q12H IV 12/31/16 22:00 01/30/17 21:59 01/02/17 08:13 1.5 MLS/MIN Furosemide (Lasix Tab) 40 mg BID17 PO 01/01/17 17:00 01/31/17 16:59 01/02/17 08:14 40 MG Hydralazine HCl (HydrALAZINE INJ) 10 mg Q6H PRN IV. 01/01/17 12:00 01/31/17 11:59 01/01/17 12:41 10 MG Amlodipine Besylate (Norvasc Tab) 5 mg QAM PO 01/02/17 09:00 02/01/17 08:59 01/02/17 08:13 5 MG
[2017-01-02] MEDS: TRAZODONE HCL 50 MG TAB PO PRN (22:05)
[2017-01-03 03:56] VITALS: BP 159/63; PULSE 69; TEMP 36.6; O2SAT 98
[2017-01-03] MEDS: HEPARIN SOD 5000 UNIT/0.5 ML CARP SQ SCH ×2 (05:32→13:40)
[2017-01-03 06:50] VITALS: BP 183/64; PULSE 78; TEMP 36.8; O2SAT 93
[2017-01-03] MEDS: CITALOPRAM 20 MG TAB PO SCH (07:39)
[2017-01-03] MEDS: AMLODIPINE BESYLATE 5 MG TAB PO SCH (07:39)
[2017-01-03] MEDS: FUROSEMIDE 40 MG TAB PO SCH (07:39)
[2017-01-03] MEDS: ISOSORBIDE MONONITRATE 30 MG TABCR PO SCH (07:40)
[2017-01-03] MEDS: PANTOprazole INJ 40 MG in SYRINGE 0 ML IV SCH (07:43)
[2017-01-03 08:52] LABS: ARTERIAL BLD GAS O2 SATURATION 92.3 % (90-95); ARTERIAL BLOOD GAS BASE EXCESS 11.6 mEq/L (-9-1.8); ARTERIAL BLOOD GAS HCO3 40 mmol/L (19-24); ARTERIAL BLOOD GAS PO2 77 mm/Hg (80-95); ARTERIAL BLOOD GAS pH 7.32 (7.35-7.45)
[2017-01-03 08:54] LABS: ALLEN TEST POS (POS); O2 ADMINISTRATION 2 LITERS
[2017-01-03 09:14] LABS: BUN/CREATININE RATIO 33.3 (10-20); CREATININE 2.6 mg/dl (0.60-1.20); POTASSIUM 3.7 mmol/L (3.5-5.1)
[2017-01-03 09:17] LABS: CALCIUM 7.8 mg/dl (8.5-10.1)
[2017-01-03] MEDS: METHYLPREDNISOLONE IV 40 MG in SYRINGE 0 ML IV SCH (09:43)
[2017-01-03 09:59] VITALS: BP 166/63
[2017-01-03 11:31] VITALS: BP 168/72; PULSE 83; TEMP 36.9; O2SAT 92
--- NOTE | 2017-01-03 12:48 | Nephrology Progress Note ---
Nephrology Progress Note Date of Service: January 03, 2017. Subjective 76 yo female seen for ckd and volume overload. pt also presented with co2 narcosis and improved with bipap. pt currently does not want any dialysis if needed. pt agreeable to bipap and had co2 elevation yesterday as well. pt agreed to doing the abg yesterday and had a co2 of 90 and bicarb of 40 and co2 improved to 79 with the bipap and ph improved to 7.3. pts son in room with her. pt excited about possibility of going home tomorrow. no specific complaints. comfortable. eating lunch. Objective Date Time Temp Pulse Resp B/P Pulse Ox O2 Delivery O2 Flow Rate FiO2 01/03/17 11:31 36.9 83 18 168/72 92 Nasal Cannula 3.0 01/03/17 09:59 166/63 01/03/17 08:00 Nasal Cannula 3.0 01/03/17 06:50 36.8 78 18 183/64 93 Nasal Cannula 3.0 01/03/17 04:05 Nasal Cannula 3.0 BiPAP 01/03/17 03:56 36.6 69 16 159/63 98 Nasal Cannula 2.0 01/03/17 00:05 Nasal Cannula 3.0 BiPAP 01/02/17 23:26 37.5 76 18 168/62 92 Nasal Cannula 2.0 01/02/17 20:05 Nasal Cannula 3.0 BiPAP 01/02/17 19:18 36.3 72 16 181/69 96 Nasal Cannula 3.0 01/02/17 16:00 Nasal Cannula 3.0 BiPAP 01/02/17 15:14 36.6 75 19 127/71 92 BiPAP 01/02/17 15:07 74 93 3.0 Physical Exam: General-aaox3, obese Eyes-no scleral icterus ENT-mmm Neck-supple Lungs-rales at bases Heart-regular Abdomen-bs+ s/nt/nd Extremities-no c/c/e Neuro-nonfocal Current Inpatient Medications Medications (Trade) Dose Ordered Sig/Pieter Route Start Time Stop Time Status Last Admin Dose Admin Heparin Sodium (Porcine) (Heparin Sq 5000 Unit/0.5ml) 5,000 unit Q8 SQ 12/28/16 14:00 01/27/17 13:59 01/03/17 05:32 5,000 UNIT Acetaminophen (Tylenol Tab) 650 mg Q4H PRN PO 12/28/16 12:15 01/27/17 12:14 12/31/16 22:45 650 MG Ondansetron HCl (Zofran Inj) 4 mg Q6H PRN IV 12/28/16 12:15 01/27/17 12:14 Nitroglycerin (Nitrostat Tab) 0.4 mg UD PRN SL 12/28/16 12:15 01/27/17 12:14 Polyethylene (Miralax Powder Packet) 17 gm DAILY PRN PO 12/28/16 12:15 01/27/17 12:14 Citalopram Hydrobromide (celeXA TAB) 20 mg DAILY PO 12/29/16 09:00 01/28/17 08:59 01/03/17 07:39 20 MG Isosorbide Mononitrate 30 mg 30 mg DAILY PO 12/29/16 09:00 01/28/17 08:59 01/03/17 07:40 30 MG Pantoprazole Sodium/Syringe (Protonix Inj/ Syringe) 10 ml @ 5 mls/min DAILY IV 12/29/16 09:00 01/28/17 08:59 01/03/17 07:43 5 MLS/MIN Trazodone HCl (Desyrel Tab) 25 mg HS PRN PO 12/29/16 23:30 01/28/17 23:29 01/02/17 22:05 25 MG Miconazole Nitrate (Desenex Powder) 1 appln PRN PRN EXT 12/30/16 05:30 01/29/17 05:29 12/30/16 21:56 1 APPLN Hydralazine HCl (Apresoline Tab) 50 mg BID PO 12/30/16 21:00 01/29/17 20:59 01/03/17 07:40 50 MG Levofloxacin 500 mg 500 mg Q2D@1100 PO 01/02/17 11:00 01/07/17 10:59 01/02/17 12:02 500 MG Methylprednisolone Sodium Succinate/ Syringe (Solu-Medrol IV/ Syringe) 0.64 ml @ 1.5 mls/min Q12H IV 12/31/16 22:00 01/30/17 21:59 01/03/17 09:43 1.5 MLS/MIN Furosemide (Lasix Tab) 40 mg BID17 PO 01/01/17 17:00 01/31/17 16:59 01/03/17 07:39 40 MG Hydralazine HCl (HydrALAZINE INJ) 10 mg Q6H PRN IV. 01/01/17 12:00 01/31/17 11:59 01/01/17 12:41 10 MG Amlodipine Besylate (Norvasc Tab) 5 mg QAM PO 01/02/17 09:00 02/01/17 08:59 01/03/17 07:39 5 MG Last 24 Hours Test 01/03/17 08:45 Arterial Blood pH 7.32 Arterial Blood Partial Pressure CO2 79 mmHg Arterial Blood Partial Pressure O2 77 mm/Hg Arterial Blood HCO3 40 mmol/L Arterial Blood Oxygen Saturation 92.3 % Arterial Blood Base Excess 11.6 mEq/L Arterial Blood Gas Delivery 2 LITERS Truong Test POS Sodium Level 141 mmol/L Potassium Level 3.7 mmol/L Chloride Level 93 mmol/L Carbon Dioxide Level 40 mmol/L Anion Gap 8.0 mmol/L Blood Urea Nitrogen 87 mg/dl Creatinine 2.60 mg/dl Est Creatinine Clear Calc Drug Dose 22.3 ml/min Estimated GFR () 20.2 Estimated GFR (Non- 17.5 BUN/Creatinine Ratio 33.3 Random Glucose 208 mg/dl Calcium Level 7.8 mg/dl Assessment & Plan ckd stage 4: Creatinine has varied from 2.1 to 2.7 and is 2.6 today. pt on higher dose of lasix and needs it to help with her lung function. still with basilar rales despite being on lasix 40mg po bid. not uremic. follows with Dr. Forrester in [place]. Anemia of ckd-hg levels are below 10 and iron sat is good. may be a candidate for procrit if agreeable to take. defer to Dr. Forrester as an outpt. Elevated bicarb-no role for diamox. bicarb is high to help with compensation from the significant respiratory acidosis. continue current diuretics and continue to encourage bipap compliance. in process of setting this up at home.
--- NOTE | 2017-01-03 14:02 | Progress Note ---
Medicine Progress Note Date & Time of Visit: January 03, 2017 at 13:43. Subjective Pt was seen and examined sitting in bed with no acute distress eating her breakfast Pt said that she had a wonderful night she said that she feels good Denies any chest pain, palpitation and SOB Objective Last 8 Hrs Date Time Temp Pulse Resp B/P Pulse Ox O2 Delivery O2 Flow Rate FiO2 01/03/17 12:30 Nasal Cannula 3.0 01/03/17 11:31 36.9 83 18 168/72 92 Nasal Cannula 3.0 01/03/17 09:59 166/63 01/03/17 08:00 Nasal Cannula 3.0 01/03/17 06:50 36.8 78 18 183/64 93 Nasal Cannula 3.0 Physical Exam: General- No acute distress, obese Head- atraumatic Eyes- PERRL, EOMI ENT- oropharynx clear Neck- supple, no JVD Lungs- poor air entry, no wheezing Heart- regular rhythm; +systolic murmur Abdomen- normal bowel sounds, soft Extremities- +edema, no calf tenderness Neuro- alert, oriented x 3; PERRL, EOMI; no facial palsy Skin- warm & dry Laboratory Results: Last 24 Hours Test 01/03/17 08:45 Arterial Blood pH 7.32 Arterial Blood Partial Pressure CO2 79 mmHg Arterial Blood Partial Pressure O2 77 mm/Hg Arterial Blood HCO3 40 mmol/L Arterial Blood Oxygen Saturation 92.3 % Arterial Blood Base Excess 11.6 mEq/L Arterial Blood Gas Delivery 2 LITERS Truong Test POS Sodium Level 141 mmol/L Potassium Level 3.7 mmol/L Chloride Level 93 mmol/L Carbon Dioxide Level 40 mmol/L Anion Gap 8.0 mmol/L Blood Urea Nitrogen 87 mg/dl Creatinine 2.60 mg/dl Est Creatinine Clear Calc Drug Dose 22.3 ml/min Estimated GFR () 20.2 Estimated GFR (Non- 17.5 BUN/Creatinine Ratio 33.3 Random Glucose 208 mg/dl Calcium Level 7.8 mg/dl Assessment & Plan Acute on Chronic Hypercapnic Respiratory failure VBG on admission pH 7.25 and pCO2 85 COPD exacerbation and hypercapnia Has been using Bipap at night which seems to help Will get overnight pulse oximetry case discussed with Dr. Hamilton base on overnight oximetry and ABG result, will see if pt is qualify for BiPap Continue steroid, DuoNeb treatment Continue monitor 01/02 Refused to use the Bipap last night ABG this morning showed respiratory acidosis (pH 7.26, pCo2 90) Refused to keep Bipap on to do the Nocturnal oximetry pulse Explained to pt that, i will not discharge her today because she will come back with CO2 retention Will try to get the nocturnal pulse oximetry tonight 01/03 overnight oximetry done and qualified pt for BIPAP Will use the hospital setting since she tolerates well and feels well Script given to binder caser for Bipap 07/20 Pt will need outpatient sleep study that can arrange with her PCP Counseling pt to continue to use the Bipap at night Acute Diastolic CHF SOB with significant Weight Gain IV Lasix changed to PO lasix Continue lasix ECHO::Small, underfilled LV chamber size with mild concentric LVH. * Hyperdynamic LV systolic function, EF >70%. * No segmental left ventricular wall motion abnormalities are noted. * Grade I diastolic dysfunction. * The aortic valve is not well visualized. * Moderately calcified aortic valve. * There is no significant aortic regurgitation. * Moderate valvular aortic stenosis. * Moderate to severe MAC. * Moderate left atrial enlargement. Acute on Chronic Stage IV Renal disease -likely secondary to intravascular dehydration - Creatine 2.6 today - Refusing Dialysis in future - Continue monitor BMP - Nephro on Board - Case discussed with nephrology, recommended to discharge on current hospital lasix dose - Follow up with nephrology HTN- Elevated BP On Hydralazine to 50mg BID Amlodipine 5 mg started (she was on amlodipine 10mg. 5mg is less likely to cause swelling) BP fluctuates Follow up with PCP to titrate BP med UTI Continue Levaquin to cover respiratory pathogens Stable Anemia Hbg Stable Morbid Obesity Counseling about weight loss and diet Depression Continue Celexa DVT px- heparin subq CODE STATUS DNR DISPOSITION Discharge home today Follow up with your pcp Dr. Ward 01/06 @ 1 pm Bipap will deliver today btw 4 to 5 pm Will need to schedule for sleep study ( your PCP can arrange for the sleep study ) Follow up with Nephrology Dr. Forrester Check BMP Consultants: Pulmonary PT/OT Current Inpatient Medications: Current Inpatient Medications Medications (Trade) Dose Ordered Sig/Pieter Route Start Time Stop Time Status Last Admin Dose Admin Heparin Sodium (Porcine) (Heparin Sq 5000 Unit/0.5ml) 5,000 unit Q8 SQ 12/28/16 14:00 6/14/17 13:59 01/03/17 13:40 5,000 UNIT Acetaminophen (Tylenol Tab) 650 mg Q4H PRN PO 12/28/16 12:15 01/27/17 12:14 12/31/16 22:45 650 MG Ondansetron HCl (Zofran Inj) 4 mg Q6H PRN IV 12/28/16 12:15 01/27/17 12:14 Nitroglycerin (Nitrostat Tab) 0.4 mg UD PRN SL 12/28/16 12:15 01/27/17 12:14 Polyethylene (Miralax Powder Packet) 17 gm DAILY PRN PO 12/28/16 12:15 01/27/17 12:14 Citalopram Hydrobromide (celeXA TAB) 20 mg DAILY PO 12/29/16 09:00 01/28/17 08:59 01/03/17 07:39 20 MG Isosorbide Mononitrate 30 mg 30 mg DAILY PO 12/29/16 09:00 01/28/17 08:59 01/03/17 07:40 30 MG Pantoprazole Sodium/Syringe (Protonix Inj/ Syringe) 10 ml @ 5 mls/min DAILY IV 12/29/16 09:00 01/28/17 08:59 01/03/17 07:43 5 MLS/MIN Trazodone HCl (Desyrel Tab) 25 mg HS PRN PO 12/29/16 23:30 01/28/17 23:29 01/02/17 22:05 25 MG Miconazole Nitrate (Desenex Powder) 1 appln PRN PRN EXT 12/30/16 05:30 01/29/17 05:29 12/30/16 21:56 1 APPLN Hydralazine HCl (Apresoline Tab) 50 mg BID PO 12/30/16 21:00 01/29/17 20:59 01/03/17 07:40 50 MG Levofloxacin 500 mg 500 mg Q2D@1100 PO 01/02/17 11:00 01/07/17 10:59 01/02/17 12:02 500 MG Methylprednisolone Sodium Succinate/ Syringe (Solu-Medrol IV/ Syringe) 0.64 ml @ 1.5 mls/min Q12H IV 12/31/16 22:00 01/30/17 21:59 01/03/17 09:43 1.5 MLS/MIN Furosemide (Lasix Tab) 40 mg BID17 PO 01/01/17 17:00 01/31/17 16:59 01/03/17 07:39 40 MG Hydralazine HCl (HydrALAZINE INJ) 10 mg Q6H PRN IV. 01/01/17 12:00 01/31/17 11:59 01/01/17 12:41 10 MG Amlodipine Besylate (Norvasc Tab) 5 mg QAM PO 01/02/17 09:00 02/01/17 08:59 01/03/17 07:39 5 MG
[2017-01-03] MEDS ORDERED: LSX40 PO (14:39)
[2017-01-03] MEDS ORDERED: LVQ500 PO ×2 (14:39→14:57)
[2017-01-03] MEDS ORDERED: DSY50 PO (14:39)
[2017-01-03] MEDS ORDERED: APR50 PO (14:39)
[2017-01-03] MEDS ORDERED: NRV5 PO (14:39)
[2017-01-03] MEDS ORDERED: PRED10TA PO (14:39)
--- NOTE | 2017-01-03 14:51 | Discharge Instructions ---
Discharge Instructions Date of Service January 03, 2017. Admission Reason for Admission: Acute Respiratory Failure Discharge Discharge Diagnosis / Problem: Acute on Chronic Hypercapnic Respiratory failure , Acute Diastolic CHF, HTN, Discharge Goals Goal(s): Improve function, Improve disease control Activity Recommendations Activity Limitations: resume your previous activity . Instructions / Follow-Up Instructions / Follow-Up Discharge today to home with [place] [facility] Follow up with your physician Dr. Ward on 01/06 @ 1 pm Your Bipap machine will deliver today between 4 to 5 pm Check BMP in 1 week Please use the bipap machine to sleep at night Will need to schedule for a sleep study ( your PCP can arrange for the sleep study) You need to schedule a follow up appointment within 2 weeks with your Nephrology Dr. Forrester Please call to schedule a follow up appointment with pulmonary Dr. Hamilton @ Current Hospital Diet Patient's current hospital diet: AHA Diet (Heart Healthy) Discharge Diet Recommended Diet: AHA Diet (Heart Healthy) Pending Studies Studies pending at discharge: no Laboratory Results Hemoglobin A1c Test 11/23/16 16:50 Range/Units Estimated Average Glucose 114 mg/dl Hemoglobin A1c 5.6 4.5-5.6 % Lipid Panel Test 12/29/16 05:37 Range/Units Triglycerides Level 105 0-150 mg/dl Cholesterol Level 190 0-200 mg/dl HDL Cholesterol 66 mg/dl Cholesterol/HDL Ratio 2.9 LDL Cholesterol, Calculated 103 mg/dl Medical Emergencies . Who to Call and When: Medical Emergencies: If at any time you feel your situation is an emergency, please call 911 immediately. . Non-Emergent Contact Non-Emergency issues call your: Primary Care Provider Call Non-Emergent contact if: you have any medication questions . . "Provider Documentation" section prepared by Jhoanne Edwards. . VTE Core Measure Inpt VTE Proph given/why not?: Unfractionated heparin SQ
[2017-01-03 15:01] VITALS: BP 168/72; PULSE 83; TEMP 36.9; O2SAT 92
[2017-01-03 15:24] VITALS: BP 166/64; PULSE 77; TEMP 36.8; O2SAT 91
--- NOTE | 2017-01-05 22:17 | Discharge Summary ---
Discharge Summary Date of Service January 05, 2017. Discharge Summary Admission Date: December 28, 2016 at 11:45 Discharge Date: January 03, 2017 Discharge Disposition: Home with services Principal Diagnosis: Acute on Chronic Hypercapnic Respiratory failure Secondary Diagnoses/Problems: Acute Diastolic CHF HTN Acute on Chronic Stage IV Renal disease UTI Morbid Obesity Anemia Depression Procedures: CHEST ONE VIEW PORTABLE CLINICAL HISTORY: shortness of breath dyspnea COMPARISON STUDY: 11/23/2016 FINDINGS: Mild stable cardiomegaly. Chronic fullness of the hilar regions bilaterally. Bony vasculature slightly increased in prominence. Slight blunting of the lateral calcific angles bilaterally. IMPRESSION: Early congestive heart failure Electronically signed by: Travis Weeks M.D. 12/28/2016 9:45 AM Dictated Date/Time: 12/28/2016 9:44 AM Consultations: Pulmonary PT/OT Medication Reconciliation New Medications: Prednisone Tab (Prednisone) 10 Mg Tab 10 MG PO UD for 7 Days, TAB take 4 tabs for 2 days, then 3 tabs for 2 days, then 2 tab for 2 dayhs, than 1 tab for 1 day and stop. Amlodipine Besylate (Amlodipine Besylate) 5 Mg Tab 5 MG PO QAM for 30 Days, #30 TAB Furosemide (Furosemide) 40 Mg Tab 40 MG PO BID17 for 30 Days, TAB Hydralazine HCl (Hydralazine HCl) 50 Mg Tab 1 TAB PO BID for 30 Days, #60 Levofloxacin (Levofloxacin) 500 Mg Tab 500 MG PO Q2D@1100, #3 TAB Trazodone HCl (Trazodone HCl) 50 Mg Tab 25 MG PO HS PRN for insomnia for 30 Days, #30 TAB Continued Medications: Budesonide/Formoterol Fumarate (Symbicort 80-4.5 Mcg/Act) 60 Puffs/Inhaler Aero 2 PUFFS INH BID for 30 Days, #1 INHALER 2 Refills Cholecalciferol (Vitamin D3) 5,000 Unit Chw 5000 UNIT PO QAM Citalopram Hydrobromide (Celexa) 20 Mg Tab 20 MG PO DAILY, TAB Cyanocobalamin (Vitamin B12) 1,000 Mcg Tab 1000 MCG PO DAILY Ferrous Sulfate (Iron) 325 Mg Tab 325 MG PO DAILY Isosorbide Mononitrate (Isosorbide Mononitrate ER) 30 Mg Tabcr 30 MG PO DAILY Multivitamin (Multivitamin) Tab 1 TAB PO DAILY, TAB Omeprazole (Prilosec) 20 Mg Capcr 20 MG PO DAILY, CAP Oxygen (Oxygen) Gas 3 LITERS NA CONTINOUS for 30 Days Discontinued Medications: Amlodipine Besylate (Amlodipine Besylate) 5 Mg Tab 10 MG PO QAM, #30 TAB Furosemide (Furosemide) 20 Mg Tab 40 MG PO QAM for 30 Days, #60 TAB 2 Refills Hydralazine Hcl (Apresoline) 25 Mg Tab 25 MG PO BID for 30 Days, #60 TAB 2 Refills Trazodone Hcl (Trazodone) 50 Mg Tab 50 MG PO HS, TAB Admission Information HPI (per Admitting provider): 76 yo F with chronic respiratory failure on 3L NC at home with worsening weight gain and shortness of breath over the past 1-2 weeks. She was recently admitted to the hospital for acute hypercapnic respiratory failure from 11/23- and was treated for COPD exacerbation. She was also seen by Nephro and was given Lasix with base weight around 222lbs on discharge and outpatient follow- up shortly afterward. Since that time [facility] states that she has gained roughly 30 lbs and she is 251 today. reports that she has gained weight and both he and patient deny any coughing, bleeding/bruising, chest pain , fevers, chills, headaches, nausea, vomiting, diarrhea, abdominal pain. He says she has just slowly declined. He reports she doesn't see Cardiology or Pulmonology and only sees Dr. Ward who is aware of the weight gain. No additional Lasix was given as outpatient. The patient does report wheezing and use of nebulizers at home. She does not wear a CPAP mask at night. She is known to have diastolic heart failure 2/2 hypertension, and her BP was elevated to 215 systolic on arrival to the ER, coming down to 180 with Lasix 40 IV. CXR reveals fluid overload worse since last admission on 11/23. EKG reveals sinus sara with no ST changes concerning for ischemia at this time. The patient was very lethargic on exam likely 2/2 CO2 retention and allowed BIPAP to be placed. Physical Exam (per Admitting): GEN: morbid obesity, in no acute distress, lethargic but easily aroused and is oriented to person place and time. HEENT: NC/AT, PERRL, normal sclerae, normal conjunctivae, mucous membranes are moist. CARDIO: reg rate, 3/6 LIEN at LSB LUNGS: crackles heard at bases with diminished breath sounds. She is difficult to examine with morbid obesity and lethargy along with poor compliance with instructions to take deep breaths. ABD: soft, non-tender, non-distended, +BS EXTREMITY: warm and well perfused, obese with edema present but difficult to interpret in setting of obesity NEURO: CN 2-12 grossly intact, no gross focal deficits, not moving much but moves all extremities equally. MUSC: 5/5 strength throughout, no gross focal deficits SKIN: warm and dry, multiple small erythematous wounds all over her face, nondraining. Hospital Course Acute on Chronic Hypercapnic Respiratory failure VBG on admission pH 7.25 and pCO2 85 COPD exacerbation and hypercapnia Has been using Bipap at night which seems to help Will get overnight pulse oximetry case discussed with Dr. Alfonso miller on overnight oximetry and ABG result, will see if pt is qualify for BiPap Continue steroid, DuoNeb treatment Continue monitor 01/02 Refused to use the Bipap last night ABG this morning showed respiratory acidosis (pH 7.26, pCo2 90) Refused to keep Bipap on to do the Nocturnal oximetry pulse Explained to pt that, i will not discharge her today because she will come back with CO2 retention Will try to get the nocturnal pulse oximetry tonight 01/03 overnight oximetry done and qualified pt for BIPAP Will use the hospital setting since she tolerates well and feels well Script given to counseling case manager for Bipap 07/20 Pt will need outpatient sleep study that can arrange with her PCP Counseling pt to continue to use the Bipap at night Acute Diastolic CHF SOB with significant Weight Gain IV Lasix changed to PO lasix Continue lasix ECHO::Small, underfilled LV chamber size with mild concentric LVH. * Hyperdynamic LV systolic function, EF >70%. * No segmental left ventricular wall motion abnormalities are noted. * Grade I diastolic dysfunction. * The aortic valve is not well visualized. * Moderately calcified aortic valve. * There is no significant aortic regurgitation. * Moderate valvular aortic stenosis. * Moderate to severe MAC. * Moderate left atrial enlargement. Acute on Chronic Stage IV Renal disease -likely secondary to intravascular dehydration - Creatine 2.6 today - Refusing Dialysis in future - Continue monitor BMP - Nephro on Board - Case discussed with nephrology, recommended to discharge on current hospital lasix dose - Follow up with nephrology HTN- Elevated BP On Hydralazine to 50mg BID Amlodipine 5 mg started (she was on amlodipine 10mg. 5mg is less likely to cause swelling) BP fluctuates Follow up with PCP to titrate BP med UTI Continue Levaquin to cover respiratory pathogens Stable Anemia Hbg Stable Morbid Obesity Counseling about weight loss and diet Depression Continue Celexa DVT px- heparin subq CODE STATUS DNR DISPOSITION Discharge home today Follow up with your pcp Dr. Ward 01/06 @ 1 pm Bipap will deliver today btw 4 to 5 pm Will need to schedule for sleep study ( your PCP can arrange for the sleep study ) Follow up with Nephrology Dr. Forrester Check BMP Total time spent on discharge = 35 minutes This includes examination of the patient, discharge planning, medication reconciliation, and communication with other providers. Discharge Instructions Discharge Instructions Date of Service January 03, 2017. Admission Reason for Admission: Acute Respiratory Failure Discharge Discharge Diagnosis / Problem: Acute on Chronic Hypercapnic Respiratory failure , Acute Diastolic CHF, HTN, Discharge Goals Goal(s): Improve function, Improve disease control Activity Recommendations Activity Limitations: resume your previous activity . Instructions / Follow-Up Instructions / Follow-Up Discharge today to home with [facility] Follow up with your physician Dr. Ward on 01/06 @ 1 pm Your Bipap machine will deliver today between 4 to 5 pm Check BMP in 1 week Please use the bipap machine to sleep at night Will need to schedule for a sleep study ( your PCP can arrange for the sleep study) You need to schedule a follow up appointment within 2 weeks with your Nephrology Dr. Forrester Please call to schedule a follow up appointment with pulmonary Dr. Hamilton @ Current Hospital Diet Patient's current hospital diet: AHA Diet (Heart Healthy) Discharge Diet Recommended Diet: AHA Diet (Heart Healthy) Pending Studies Studies pending at discharge: no Laboratory Results Hemoglobin A1c Test 11/23/16 16:50 Range/Units Estimated Average Glucose 114 mg/dl Hemoglobin A1c 5.6 4.5-5.6 % Lipid Panel Test 12/29/16 05:37 Range/Units Triglycerides Level 105 0-150 mg/dl Cholesterol Level 190 0-200 mg/dl HDL Cholesterol 66 mg/dl Cholesterol/HDL Ratio 2.9 LDL Cholesterol, Calculated 103 mg/dl Medical Emergencies . Who to Call and When: Medical Emergencies: If at any time you feel your situation is an emergency, please call 911 immediately. . Non-Emergent Contact Non-Emergency issues call your: Primary Care Provider Call Non-Emergent contact if: you have any medication questions . . "Provider Documentation" section prepared by Johanne Edwards. . VTE Core Measure Inpt VTE Proph given/why not?: Unfractionated heparin SQ Additional Copies To Christine Ward M.D.
== END 2017-01-03 16:43 | disposition home health service (06) | DRG 291 ==
LOC: ENRESERVDT → ENRESERVTM → EDBD 09:02 → C.EDB 09:05 → C.MED 11:45
PROVIDERS: ADMIT Hospitalist; ATTEND Internal Medicine
DX: I13.0 Hypertensive heart and chronic kidney disease with heart failure and stage 1 through stage 4 chronic kidney disease, or unspecified chronic kidney disease (principal); I50.31 Acute diastolic (congestive) heart failure; J96.22 Acute and chronic respiratory failure with hypercapnia; J44.1 Chronic obstructive pulmonary disease with (acute) exacerbation; N18.4 Chronic kidney disease, stage 4 (severe); Z68.41 Body mass index [BMI] 40.0-44.9, adult; N17.9 Acute kidney failure, unspecified; N39.0 Urinary tract infection, site not specified; Z79.899 Other long term (current) drug therapy; Z99.81 Dependence on supplemental oxygen; E66.01 Morbid (severe) obesity due to excess calories; D63.1 Anemia in chronic kidney disease; F32.9 Major depressive disorder, single episode, unspecified; Z66 Do not resuscitate

== ENCOUNTER 2017-03-16 16:36 | Inpatient (IN) | payer OTHER ==
[~2017-03-16] VITALS: Ht 157.5 cm; Wt 116.9 kg
[~2017-03-16 16:36] MED LIST changes: -APR25 PO; +APR50 PO; +DSY50 PO; -IPRASOL4 INH; -LSX20 PO; +LSX40 PO; -LVQ250 PO; +LVQ500 PO; -MENTOIN TOP; -PRD10 PO; -TRAZ50TA35 PO
[2017-03-16 17:02] LABS: BASO % 0.4 %; BASO ABS # 0.03 K/uL (0-0.2); EOS % 1.3 %; HEMATOCRIT 27.9 % (37-47); IG% 0.3 %; LYMPH % 15.1 %; LYMPH ABS # 1.08 K/uL (1.2-3.4); MEAN CELL VOLUME 108.6 fL (80-100); MEAN CORPUSCULAR HEMOGLOBIN 31.5 pg (25-34); MEAN PLATELET VOLUME 9.1 fL (7.4-10.4); MONO % 7.1 %; NEUT % 75.8 %; PLATELET COUNT 150 K/uL (130-400); RED BLOOD COUNT 2.57 M/uL (4.2-5.4); WHITE BLOOD COUNT 7.14 K/uL (4.8-10.8)
[2017-03-16 17:10] LABS: INR 1.1 (0.9-1.1); PROTHROMBIN TIME (PATIENT) 11.4 SECONDS (9.0-12.0)
--- NOTE | 2017-03-16 17:11 | DIAGNOSTIC IMAGING REPORT ---
SINGLE VIEW CHEST CLINICAL HISTORY: Dyspnea. FINDINGS: An AP, portable, upright chest radiograph is compared to study dated 03/16/2017 and 07/23/2014. The examination is degraded by portable technique, apical lordotic positioning, and patient rotation. The heart is enlarged. Mild pulmonary vascular congestion is observed. Enlargement the central pulmonary arteries is similar to previous and suggests pulmonary artery hypertension. There is bibasilar atelectasis. Trace pleural effusions are suspected. No pneumothorax is seen. The skeletal structures are osteopenic. The bony thorax is grossly intact. IMPRESSION: 1. Cardiomegaly with mild pulmonary vascular congestion. Cortical clinically for evidence of mild congestive failure. 2. Suspect trace pleural effusions. Electronically signed by: Jaden Espinoza M.D. 03/16/2017 5:10 PM Dictated Date/Time: 03/16/2017 5:08 PM
[2017-03-16 17:19] LABS: BUN/CREATININE RATIO 16.9 (10-20); CALCIUM 8.8 mg/dl (8.5-10.1); CREATININE 3.8 mg/dl (0.60-1.20); POTASSIUM 4.3 mmol/L (3.5-5.1)
[2017-03-16 17:24] LABS: ALB/GLOB RATIO 1.1 (0.9-2); CKMB/CK RATIO 2.6 (0-3.0)
[2017-03-16] MEDS ORDERED: TRAZ50TA35 PO (17:34)
[2017-03-16] MEDS ORDERED: SYMIN/8045 INH (17:34)
[2017-03-16] MEDS ORDERED: IPRASOL4 NEB (17:34)
[2017-03-16] MEDS ORDERED: FRS/40 PO (17:34)
[2017-03-16] MEDS ORDERED: AMLO-110 PO (17:34)
[2017-03-16] MEDS ORDERED: OXGN (17:34)
[2017-03-16] MEDS ORDERED: HYDR-4717 PO (17:34)
[2017-03-16 17:35] LABS: COMPLETE YES; STOMATOCYTE 1+
[2017-03-16] MEDS ORDERED: ISOS-11 PO (17:59)
[2017-03-16] MEDS ORDERED: CITA20TA9 PO (17:59)
[2017-03-16] MEDS ORDERED: PRLSR20 PO (17:59)
[2017-03-16] MEDS ORDERED: CYAN100020 PO (17:59)
[2017-03-16] MEDS ORDERED: CHOL500021 PO (18:21)
[2017-03-16] MEDS ORDERED: MULT-506 PO (18:21)
[2017-03-16] MEDS ORDERED: FERR1TAB23 PO (18:41)
[2017-03-16 20:46] LABS: MAGNESIUM 2.2 mg/dl (1.8-2.4); THYROID STIMULATING HORMONE 2.25 uIu/ml (0.300-4.500)
[2017-03-16 21:10] LABS: ALLEN TEST POS (POS); ARTERIAL BLOOD GAS HCO3 37 mmol/L (19-24); ARTERIAL BLOOD GAS PO2 75 mm/Hg (80-95); O2 ADMINISTRATION 3 L
[2017-03-16 21:14] LABS: ARTERIAL BLOOD GAS pH 7.17 (7.35-7.45)
[2017-03-16] MEDS ORDERED: LORAZEPAM INJ 1 MG in SYRINGE 0.5 ML IV PRN (21:45)
[2017-03-16] MEDS ORDERED: ALBUT/IPRATROP 3MG/0.5MG NEB 3 ML VIAL INH PRN (21:45)
[2017-03-16] MEDS ORDERED: ACETAMINOPHEN 325 MG TAB PO PRN (21:45)
[2017-03-16] MEDS ORDERED: ALBUT/IPRATROP 3MG/0.5MG NEB 3 ML VIAL INH STA (22:06)
--- NOTE | 2017-03-16 22:58 | EMERGENCY ROOM VISIT NOTE ---
History Report prepared by Marvin: Carter Newman Under the Supervision of: Dr. Elijah Arredondo M.D. First contact with patient: 16:39 Chief Complaint: SHORTNESS OF BREATH Stated Complaint: WEAKNESS, SHORTNESS OF BREATH Nursing Triage Summary: pt was to see this am to check her legs, had increased weakness, unable to transfer to w/c. pt "butt slipped out of it" fell to floor onto buttocks. called 911 to get her up. has had slight sob History of Present Illness The patient is a 77 year old female who presents to the Emergency Room with complaints of weakness in her legs that began today. The patient is usually able to walk with a walker, but she could not today. She was trying to lift herself into her wheelchair, when she slipped off of the chair and fell onto her buttocks. She did not hurt herself at all. She called the ambulance to help her off of the floor, because she could not get up. She notes her leg edema has been the same. Pt denies LOC, headache, fevers, chills, diaphoresis, visual changes, neck pain, chest pain, breathing difficulties, nausea, vomiting, abdominal pain, back pain, melena, hematochezia, urinary symptoms, numbness, lymphadenopathy, rash, or other complaints. Source of History: patient Onset: today Position: other (global) Symptom Intensity: moderate Quality: other (Weakness) Timing: worsening Note: He legs are very swollen, which she states is baseline. Review of Systems See HPI for pertinent positives and negatives. A total of ten systems were reviewed and were otherwise negative. Past Medical & Surgical Medical Problems: (1) Acute respiratory failure (2) Anemia due to chronic kidney disease (3) Aortic stenosis (4) CKD (chronic kidney disease), stage IV (5) COPD (chronic obstructive pulmonary disease) (6) Depression with anxiety (7) Diastolic CHF (8) Dyslipidemia (9) GERD (gastroesophageal reflux disease) (10) HTN (hypertension) (11) Hypothyroidism (12) Osteoarthritis (13) Palliative care encounter (14) Respiratory failure with hypoxia Surgical Problems: (1) History of appendectomy (2) History of hysterectomy (3) Hx of cholecystectomy (4) Hx of tonsillectomy (5) S/P gastric bypass Family History FH: breast cancer MOTHER Social History Smoking Status: Former Smoker Alcohol Use: none Drug Use: none Marital Status: Housing Status: lives with family Occupation Status: retired Current/Historical Medications Scheduled Amlodipine (Norvasc), 5 MG PO QAM Budesonide/Formoterol Fumarate (Symbicort 80/4.5 Inhaler), 2 PUFFS INH BID Cholecalciferol (Vitamin D3), 5,000 INTER.UNIT PO QAM Citalopram Hydrobromide (Celexa), 20 MG PO DAILY Cyanocobalamin (Vitamin B12), 1,000 MCG PO DAILY Ferrous Sulfate (Iron), 325 MG PO DAILY Home O2 Therapy (Oxygen), 3 LITERS NA CONTINOUS Hydralazine Hcl (Apresoline), 50 MG PO BID Isosorbide Mononitrate (Isosorbide Mononitrate ER), 30 MG PO DAILY Multivitamin (Multivitamin), 1 TAB PO DAILY Omeprazole (Prilosec), 20 MG PO DAILY Scheduled PRN Furosemide (Lasix), 40 MG PO BID PRN for Fluid Retention Ipratropium-Albuterol (Duoneb), 1 TREATMENT NEB Q4H PRN for SOB/Wheezing Trazodone Hcl (Trazodone), 50 MG PO HS PRN for Sleep Allergies Coded Allergies: Ampicillin (Unverified Allergy, Unknown, ITCHING, 11/23/16) Latex1 -Allergic Contact Dermititis (Unverified Allergy, Unknown, ITCHING , 11/23/16) Physical Exam Vital Signs Date Time Temp Pulse Resp B/P (MAP) Pulse Ox O2 Delivery O2 Flow Rate FiO2 03/16/17 20:36 63 19 146/54 94 Nasal Cannula 3.0 03/16/17 20:00 63 19 166/55 96 Nasal Cannula 3.0 03/16/17 19:06 65 19 03/16/17 18:36 63 17 03/16/17 18:06 63 22 03/16/17 18:04 68 22 166/57 96 Nasal Cannula 3.0 03/16/17 18:02 166/57 03/16/17 17:36 62 20 03/16/17 17:06 59 18 03/16/17 17:00 59 03/16/17 16:50 Nasal Cannula 3.0 03/16/17 16:48 36.7 61 22 160/58 93 Nasal Cannula 3.0 03/16/17 16:46 93 Nasal Cannula 3.0 03/16/17 16:46 93 Nasal Cannula 3.0 03/16/17 16:43 160/58 Physical Exam GENERAL: Awake, alert, well-appearing, in no distress HENT: Normocephalic, atraumatic. Oropharynx unremarkable. EYES: Normal conjunctiva. Sclera non-icteric. NECK: Supple. No nuchal rigidity. FROM. No JVD. RESPIRATORY: Clear to auscultation. CARDIAC: Bradycardic rate, normal rhythm. Systolic ejection murmur. Extremities warm and well perfused. Pulses equal. ABDOMEN: Soft, non-distended. No tenderness to palpation. No rebound or guarding. No masses. RECTAL: Deferred. MUSCULOSKELETAL: Chest examination reveals no tenderness. The back is symmetrical on inspection without obvious abnormality. There is no CVA tenderness to palpation. No joint edema. LOWER EXTREMITIES: Calves are equal size bilaterally and non-tender. 3+ pitting edema bilaterally. No discoloration. NEURO: Normal sensorium. No sensory or motor deficits noted. SKIN: No rash or jaundice noted. Medical Decision & Procedures ER Provider Diagnostic Interpretation: Radiology results as stated below per my review and radiologist interpretation: SINGLE VIEW CHEST CLINICAL HISTORY: Dyspnea. FINDINGS: An AP, portable, upright chest radiograph is compared to study dated 03/16/2017 and 07/23/2014. The examination is degraded by portable technique, apical lordotic positioning, and patient rotation. The heart is enlarged. Mild pulmonary vascular congestion is observed. Enlargement the central pulmonary arteries is similar to previous and suggests pulmonary artery hypertension. There is bibasilar atelectasis. Trace pleural effusions are suspected. No pneumothorax is seen. The skeletal structures are osteopenic. The bony thorax is grossly intact. IMPRESSION: 1. Cardiomegaly with mild pulmonary vascular congestion. Cortical clinically for evidence of mild congestive failure. 2. Suspect trace pleural effusions. Electronically signed by: Jaden Espinoza M.D. 03/16/2017 5:10 PM Dictated Date/Time: 03/16/2017 5:08 PM Laboratory Results 03/16/17 16:50 Red Blood Count 2.57, Mean Corpuscular Volume 108.6, Mean Corpuscular Hemoglobin 31.5, Mean Corpuscular Hemoglobin Concent 29.0, Mean Platelet Volume 9.1, Neutrophils (%) (Auto) 75.8, Lymphocytes (%) (Auto) 15.1, Monocytes (%) ( Auto) 7.1, Eosinophils (%) (Auto) 1.3, Basophils (%) (Auto) 0.4, Neutrophils # ( Auto) 5.41, Lymphocytes # (Auto) 1.08, Monocytes # (Auto) 0.51, Eosinophils # ( Auto) 0.09, Basophils # (Auto) 0.03 03/16/17 16:50 Test 03/16/17 16:50 03/16/17 20:20 White Blood Count 7.14 K/uL (4.8-10.8) Red Blood Count 2.57 M/uL (4.2-5.4) Hemoglobin 8.1 g/dL (12.0-16.0) Hematocrit 27.9 % (37-47) Mean Corpuscular Volume 108.6 fL (80-100) Mean Corpuscular Hemoglobin 31.5 pg (25-34) Mean Corpuscular Hemoglobin Concent 29.0 g/dl (32-36) Platelet Count 150 K/uL (130-400) Mean Platelet Volume 9.1 fL (7.4-10.4) Neutrophils (%) (Auto) 75.8 % Lymphocytes (%) (Auto) 15.1 % Monocytes (%) (Auto) 7.1 % Eosinophils (%) (Auto) 1.3 % Basophils (%) (Auto) 0.4 % Neutrophils # (Auto) 5.41 K/uL (1.4-6.5) Lymphocytes # (Auto) 1.08 K/uL (1.2-3.4) Monocytes # (Auto) 0.51 K/uL (0.11-0.59) Eosinophils # (Auto) 0.09 K/uL (0-0.5) Basophils # (Auto) 0.03 K/uL (0-0.2) RDW Standard Deviation 57.4 fL (36.4-46.3) RDW Coefficient of Variation 14.4 % (11.5-14.5) Immature Granulocyte % (Auto) 0.3 % Immature Granulocyte # (Auto) 0.02 K/uL (0.00-0.02) Basophilic Stippling 1+ Stomatocytes 1+ Prothrombin Time 11.4 SECONDS (9.0-12.0) Prothromb Time International Ratio 1.1 (0.9-1.1) Activated Partial Thromboplast Time 26.4 SECONDS (21.0-31.0) Partial Thromboplastin Ratio 1.0 Anion Gap 2.0 mmol/L (3-11) Est Creatinine Clear Calc Drug Dose 15.5 ml/min Estimated GFR () 12.7 Estimated GFR (Non- 11.0 BUN/Creatinine Ratio 16.9 (10-20) Calcium Level 8.8 mg/dl (8.5-10.1) Magnesium Level 2.2 mg/dl (1.8-2.4) Total Bilirubin 0.3 mg/dl (0.2-1) Aspartate Amino Transf (AST/SGOT) 11 U/L (15-37) Alanine Aminotransferase (ALT/SGPT) 10 U/L (12-78) Alkaline Phosphatase 123 U/L (45-117) Total Creatine Kinase 23 U/L (26-192) Creatine Kinase MB 0.6 ng/ml (0.5-3.6) Creatine Kinase MB Ratio 2.6 (0-3.0) Troponin I 0.025 ng/ml (0-0.045) Pro-B-Type Natriuretic Peptide 4453 pg/ml (0-900) Total Protein 6.7 gm/dl (6.4-8.2) Albumin 3.5 gm/dl (3.4-5.0) Globulin 3.2 gm/dl (2.5-4.0) Albumin/Globulin Ratio 1.1 (0.9-2) Thyroid Stimulating Hormone (TSH) 2.250 uIu/ml (0.300-4.500) Date/Time Source Procedure Growth Status 03/16/17 20:15 Stool C.difficile Toxin B Gene (PCR) - Final No C. difficile toxin B gene detected Complete Laboratory results reviewed by me ECG Indication: weakness Rate (beats per minute): 60 Rhythm: normal sinus Findings: no acute ischemic change, no ectopy ED Course 1638: The patient was evaluated in room B6. A complete history and physical exam was performed. 1956: Upon reexamination, the patient was resting. I discussed the test results and treatment plan with her. The patient will be evaluated by Dr. Arturo Otto [facility] Hospitalist, for further management. Medical Decision Triage Nursing notes reviewed. The patient's presentation and history were concerning for weakness. Etiologies such as metabolic, infection, hypo/hyperglycemia, electrolyte abnormalities, cardiac sources, intracerebral event, toxicologic, neurologic, as well as others were entertained. The patient was evaluated. She suffered no injury from her minor fall. She had generalized weakness. ECG, chest x-ray, blood work and urinalysis were obtained. Patient was found to have a moderate anemia at 8.1. She had acute kidney injury as well. The patient's BNP is elevated concerning for CHF. Imaging as above. The patient is very weak and is not doing well at home. Given the findings she will need further management in the hospital. Consultation was made with internal medicine. Patient was evaluated for further treatment. Medication Reconcilliation Current Medication List: was personally reviewed by me Blood Pressure Screening Patient's blood pressure: Elevated blood pressure Blood pressure disposition: Referred to PCP Consults Time Called: 1954 Consulting Physician: Dr. Arturo Perales Hospitalist Returned Call: 1956 Discussed the patient's case. The patient will be evaluated for further treatment and disposition. Impression Primary Impression: Weakness Additional Impressions: Anemia Acute on chronic kidney failure CHF (congestive heart failure) Scribe Attestation The scribe's documentation has been prepared under my direction and personally reviewed by me in its entirety. I confirm that the note above accurately reflects all work, treatment, procedures, and medical decision making performed by me. Departure Information Dispostion Being Evaluated By Hospitalist Referrals Christine Ward M.D. (PCP) Patient Instructions [facility] Problem Qualifiers
[2017-03-16 23:00] VITALS: BP 159/63; PULSE 61; TEMP 36.6; O2SAT 99
[2017-03-16 23:17] VITALS: BP 174/72; PULSE 62; TEMP 36.5; Ht 157.5 cm; Wt 116.9 kg
--- NOTE | 2017-03-17 07:04 | HISTORY & PHYSICAL EXAMINATION ---
DATE OF ADMISSION: 03/16/2017 PRIMARY CARE DOCTOR: Dr. Ward. CHIEF COMPLAINT: Weakness, shortness of breath. HISTORY OF PRESENT ILLNESS: Medical history significant for chronic respiratory failure secondary to COPD on home O2 and BiPAP at night, past tobacco abuse, hypertension, chronic diastolic heart failure, EF of 70% from 2D echo of December 2016, moderate aortic stenosis, chronic renal insufficiency (baseline creatinine of 2.6), chronic anemia (baseline hemoglobin 8-9). Recent confinement December 2016 acute on chronic hypercapnic respiratory failure secondary to COPD exacerbation. Patient also had ARF on CKD during confinement. Refused dialysis. From recent PCP visit 01/21/2017, the patient's diagnoses and prognosis of chronic diseases discussed with patient. Detailed discussion contemplated for next office visit as per records. Sometime last January 2017, patient having shortness of breath on exertion. Refused to be seen at the Emergency Room. Given some diuretics at home. Last few days, increasing shortness especially on exertion and weakness. She was trying to get to her wheelchair when she slipped and fell on her buttocks. No chest pain. No unusual cough symptoms. No confusion as per . Weight is just a about the same as per patient. At the emergency room, patient noted to be soiled and incontinent of stool. MEDICAL HISTORY: As above. SURGERIES: Appendectomy, hysterectomy, cholecystectomy, tonsillectomy, gastric bypass. HOME MEDICATIONS: Include Lasix, oxygen, hydralazine, DuoNebs, isosorbide mononitrate, multivitamins, Prilosec, trazodone. ALLERGIES: LATEX, PENICILLIN. FAMILY HISTORY: Breast cancer. PERSONAL AND SOCIAL HISTORY: Past tobacco use. No chronic intake of alcoholic beverages. Lives with . REVIEW OF SYSTEMS: As per HPI, all other ROS negative. PHYSICAL EXAMINATION: VITAL SIGNS: Blood pressure was noted to be 159/60, pulse rate 61, RR was noted to be 22. T 37 sats 98RA GENERAL: Noted to be oriented, obese, minimal resp distress. SKIN: Pallor. HEENT: Pale palpebral conjunctivae. Dry mucosa. Nasal cannula noted NECK: Short neck. LUNGS: Decreased breath sounds. HEART: Systolic murmur. ABDOMEN: Some distention, tender. EXTREMITIES: Minimal leg swelling, no tenderness. NEUROLOGIC: No gross focality. LABS: Hemoglobin was noted to be 8.1, hematocrit 27, white cell count 7.14, platelets 150. Sodium 140, potassium 4.3, chloride 103, CO2 27, BUN 20 creatinine 3.8, glucose 109. Chest x-ray showed cardiomegaly with minimal congestion. ABG: PH 7.17 PCO2 102, pO2 75, 90% on 3 liters. ASSESSMENT: 1. Acute on chronic hypoxemic hypercapnic respiratory failure. 2 to End-stage chronic obstructive pulmonary disease. 3. Mild congestive heart failure 2 to cardiorenal syndrome. Patient refused dialysis. 4. Hypertension, stable. 5. Chronic anemia secondary chronic kidney disease., hemoglobin at baseline 6. Past tobacco abuse. PLAN: F Palliative care, comfort measures after discussion of goals of care with patient and . Comfort is her only wish for now as per patient. Social service RE discharge planning. DVT prophylaxis not warranted given comfort measures DNR. Patient's requesting updates from providers. Mr. Niko Nicholas at [phone]. [facility]
[2017-03-17 08:01] VITALS: BP 126/62; PULSE 62; TEMP 36.6; O2SAT 98
--- NOTE | 2017-03-17 15:17 | Palliative Care Consultation ---
Consultation Date of Consultation: Mar 17, 2017. Requesting Physician: Dr. Edwards Attending Physician: Dr. Edwards Reason for Consultation: Goals of care, hospice History of Present Illness This 77 year old patient with a PMH of end-stage COPD on home O2 and CPAP at night, CKD stage IV, moderate aortic stenosis isstolic heart failure with preserved EF of 70%, and chronic anemia, presented to the ED last evening with c /o weakness, SOB, fall, and left gutierrez wound. Patient lives at home with her who is her caregiver, she is a poor historian. says that patient has had home health for many years, but has not been seen for quite some time as the physician won't renew their script for home health because the patient has not been seen; but the patient is too weak and ill to be going out for appointments, so the patient is at home without home services. The noticed that patient's weight was increasing and he thought she was filling with some fluid. He also noticed the wound on her gutierrez was open and bleeding. He was trying to get the patient in the car to take her to an appointment at [facility], but she was weak and fell, so they came to ED. According to documentation, it was decided with all of patient's comorbidities and abiding by her wishes, to make her comfort measures only. Palliative care consulted. I met with the patient and her , Niko, in room 401. Patient is awake and alert, appears SOB. Could not talk too much due to SOB. Oriented to person place and event, not time. Does have forgetfulness. Patient is in no pain or distress. Admits to getting SOB with any exertion. Is normally able to ambulate with walker for short distances. states that the only reason he brought patient in was because of the left leg wound. He was unaware that her medications weren't going to be ordered and that she wasn't receiving anything for her leg. We did talk about hospice and both patient and agree that is their goal of care-- to be comfortable and in the home. They want no aggressive treatment, but they do want her home meds ordered an would be okay with PO antibiotics. Past Medical/Surgical History Medical History: as above Social History Smoking Status: Former Smoker History of Alcohol Use: No Drug Use: none Marital Status: Housing Status: lives with significant other Occupation Status: retired Review of Systems Constitutional: + weakness, + problem reported (weight gain) Respiratory: + shortness of breath, + dyspnea on exertion, No cough, No wheezing Cardiac: + edema, No chest pain Abdomen: No pain, No nausea, No vomiting Female : No problem reported Psychiatric: No depression symptoms, No anxiety Skin: + see HPI Allergies Coded Allergies: Ampicillin (Unverified Allergy, Unknown, ITCHING, 11/23/16) Latex1 -Allergic Contact Dermititis (Unverified Allergy, Unknown, ITCHING , 11/23/16) Medications Current Inpatient Medications Medications (Trade) Dose Ordered Sig/Pieter Route Start Time Stop Time Status Last Admin Dose Admin Acetaminophen (Tylenol Tab) 650 mg Q4H PRN PO 03/16/17 21:45 04/15/17 21:44 Albuterol/ Ipratropium (Duoneb) 3 ml Q2H PRN INH 03/16/17 21:45 04/15/17 21:44 Morphine Sulfate (MoRPHine SULFATE INJ) 4 mg Q15M PRN IV 03/16/17 21:45 03/30/17 21:44 Lorazepam 1 mg/ Syringe 1 ml @ 1 mls/min Q15M PRN IV 03/16/17 21:45 04/15/17 21:44 Physical Exam Date Time Temp Pulse Resp B/P (MAP) Pulse Ox O2 Delivery O2 Flow Rate FiO2 03/17/17 08:01 36.6 62 22 126/62 (83) 98 Nasal Cannula 4.0 03/17/17 08:00 Nasal Cannula 3.0 03/17/17 00:00 Nasal Cannula 3.0 03/16/17 23:17 36.5 62 18 174/72 Nasal Cannula 3.0 03/16/17 23:00 36.6 61 20 159/63 (95) 99 Nasal Cannula 4.0 03/16/17 22:17 36.7 61 20 125/99 94 03/16/17 22:13 61 20 125/99 94 Nasal Cannula 3.0 03/16/17 21:41 61 20 153/49 94 Nasal Cannula 3.0 03/16/17 20:36 63 19 146/54 94 Nasal Cannula 3.0 03/16/17 20:00 63 19 166/55 96 Nasal Cannula 3.0 03/16/17 19:06 65 19 03/16/17 18:36 63 17 03/16/17 18:06 63 22 03/16/17 18:04 68 22 166/57 96 Nasal Cannula 3.0 03/16/17 18:02 166/57 03/16/17 17:36 62 20 03/16/17 17:06 59 18 03/16/17 17:00 59 03/16/17 16:50 Nasal Cannula 3.0 03/16/17 16:48 36.7 61 22 160/58 93 Nasal Cannula 3.0 03/16/17 16:46 93 Nasal Cannula 3.0 03/16/17 16:46 93 Nasal Cannula 3.0 03/16/17 16:43 160/58 General Appearance: no apparent distress, + obese, + pertinent finding ( chronically ill appearing) ENT: hearing grossly normal Neck: supple, no JVD Respiratory: no respiratory distress, no accessory muscle use, + decreased breath sounds, + crackles (few, fine in bases) Cardiovascular: regular rate, rhythm, + normal peripheral pulses (+2-3 pitting edema to bilatral ankles and feet. generalized pitting edema. right hand edematous) Abdomen: normal bowel sounds, non tender, soft Musculoskeletal: pertinent finding (deconditioned/weak) Neurologic/Psychiatric: alert, normal mood/affect, oriented x 3 (forgetful) Laboratory Results Last 24 Hours Test 03/16/17 16:50 03/16/17 20:59 White Blood Count 7.14 K/uL Red Blood Count 2.57 M/uL Hemoglobin 8.1 g/dL Hematocrit 27.9 % Mean Corpuscular Volume 108.6 fL Mean Corpuscular Hemoglobin 31.5 pg Mean Corpuscular Hemoglobin Concent 29.0 g/dl Platelet Count 150 K/uL Mean Platelet Volume 9.1 fL Neutrophils (%) (Auto) 75.8 % Lymphocytes (%) (Auto) 15.1 % Monocytes (%) (Auto) 7.1 % Eosinophils (%) (Auto) 1.3 % Basophils (%) (Auto) 0.4 % Neutrophils # (Auto) 5.41 K/uL Lymphocytes # (Auto) 1.08 K/uL Monocytes # (Auto) 0.51 K/uL Eosinophils # (Auto) 0.09 K/uL Basophils # (Auto) 0.03 K/uL RDW Standard Deviation 57.4 fL RDW Coefficient of Variation 14.4 % Immature Granulocyte % (Auto) 0.3 % Immature Granulocyte # (Auto) 0.02 K/uL Basophilic Stippling 1+ Stomatocytes 1+ Prothrombin Time 11.4 SECONDS Prothromb Time International Ratio 1.1 Activated Partial Thromboplast Time 26.4 SECONDS Partial Thromboplastin Ratio 1.0 Sodium Level 142 mmol/L Potassium Level 4.3 mmol/L Chloride Level 103 mmol/L Carbon Dioxide Level 37 mmol/L Anion Gap 2.0 mmol/L Blood Urea Nitrogen 64 mg/dl Creatinine 3.80 mg/dl Est Creatinine Clear Calc Drug Dose 15.5 ml/min Estimated GFR () 12.7 Estimated GFR (Non- 11.0 BUN/Creatinine Ratio 16.9 Random Glucose 109 mg/dl Calcium Level 8.8 mg/dl Magnesium Level 2.2 mg/dl Total Bilirubin 0.3 mg/dl Aspartate Amino Transf (AST/SGOT) 11 U/L Alanine Aminotransferase (ALT/SGPT) 10 U/L Alkaline Phosphatase 123 U/L Total Creatine Kinase 23 U/L Creatine Kinase MB 0.6 ng/ml Creatine Kinase MB Ratio 2.6 Troponin I 0.025 ng/ml Pro-B-Type Natriuretic Peptide 4453 pg/ml Total Protein 6.7 gm/dl Albumin 3.5 gm/dl Globulin 3.2 gm/dl Albumin/Globulin Ratio 1.1 Thyroid Stimulating Hormone (TSH) 2.250 uIu/ml Arterial Blood pH 7.17 Arterial Blood Partial Pressure CO2 102 mmHg Arterial Blood Partial Pressure O2 75 mm/Hg Arterial Blood HCO3 37 mmol/L Arterial Blood Oxygen Saturation 90.0 % Arterial Blood Base Excess 7.0 mEq/L Arterial Blood Gas Delivery 3 L Truong Test POS Assessment & Plan Problem list: Weakness s/p fall SOB/SERNA Left gutierrez wound- ?cellulitis vs stasis ulcer Chronic respiratory failure End-stage COPD CKD, worsening creatinine Goals of care (Z51.5) Palliative care recommendations: -Palliative/comfort care, will transition to hospice upon discharge. Patient and are both in agreement. -Restart home meds. -Needs CPAP at night. Please order. -Dr. Edwards will likely order PO abx for leg wound. Asked [facility]OCN to see wound and give discharge recommendations for . - is primary caregiver at home and is confident he can continue. Patient has no concerns with this. -Has no pain at this time but does have SOB. Would order Roxanol 2.5-5mg PO Q3h PRN pain or SOB. -Case management following and making hospice referral. Expected discharge possibly tomorrow. Thank you for this consult. I will follow as needed.
[2017-03-17] MEDS ORDERED: FUROSEMIDE 40 MG TAB PO PRN (15:30)
[2017-03-17] MEDS ORDERED: TRAZODONE HCL 50 MG TAB PO PRN (15:30)
--- NOTE | 2017-03-17 19:06 | Progress Note ---
Medicine Progress Note Date & Time of Visit: Mar 17, 2017 at 18:47. Subjective Pt was seen and examined Lying in bed with no distress Pt said that her breathing feels better she would like to go home she denies any chest pain, palpitation, dizziness Objective Last 8 Hrs Date Time Temp Pulse Resp B/P (MAP) Pulse Ox O2 Delivery O2 Flow Rate FiO2 03/17/17 16:23 Nasal Cannula 4.0 Physical Exam: General- No acute distress Head- atraumatic Eyes- PERRL, EOMI ENT- oropharynx clear Neck- supple, no JVD Lungs- decrease BS Heart- regular rhythm Abdomen- normal bowel sounds Extremities- no calf tenderness, b/l wound in LE, no drainage, very mild erythema Neuro- alert, oriented, PERRL, EOMI; no facial palsy Skin- warm & dry Laboratory Results: Last 24 Hours Test 03/16/17 20:59 Arterial Blood pH 7.17 Arterial Blood Partial Pressure CO2 102 mmHg Arterial Blood Partial Pressure O2 75 mm/Hg Arterial Blood HCO3 37 mmol/L Arterial Blood Oxygen Saturation 90.0 % Arterial Blood Base Excess 7.0 mEq/L Arterial Blood Gas Delivery 3 L Truong Test POS Date/Time Source Procedure Growth Status 03/16/17 20:15 Stool C.difficile Toxin B Gene (PCR) - Final No C. difficile toxin B gene detected Complete 03/16/17 20:15 Stool Shiga Toxin Test - Preliminary No E. Coli shiga toxin 1 or shiga tox... Resulted 03/16/17 20:15 Stool Stool Culture - Preliminary NO SALMONELLA ISOLATED TO DATE,... Resulted Assessment & Plan Acute on chronic hypoxemic hypercapnic respiratory failure. Possible related to COPD exacerbation vs CHF CXR showed Cardiomegaly with mild pulmonary vascular congestion Continue lasix Duoneb treatment oxygen supplement CPAP at night Pt wants to be comfort measure wants home med to be continue palliative care on board Diastolic CHF Continue lasix Continue monitor closely CKD Stage 4 - Creatine 2.1 back in December - Creatine 3.8 on admission - Lasix was on hold but pt and would like to resume since it helps pt breathing - Refusing Dialysis - Was made comfort measure B/L LE wound mostly due to venous insuff will check in am and if getting worst will start on PO abx Wound care consulted HTN- On Hydralazine to 50mg BID Amlodipine 5 mg started stable Anemia Due to CKD hbg 8.1 No lab done today since pt was made comfort measure Morbid Obesity Counseling about weight loss and diet Depression Continue Celexa CODE STATUS DNR Consultants: Palliative care Wound care Current Inpatient Medications: Current Inpatient Medications Medications (Trade) Dose Ordered Sig/Pieter Route Start Time Stop Time Status Last Admin Dose Admin Acetaminophen (Tylenol Tab) 650 mg Q4H PRN PO 03/16/17 21:45 04/15/17 21:44 Albuterol/ Ipratropium (Duoneb) 3 ml Q2H PRN INH 03/16/17 21:45 04/15/17 21:44 Morphine Sulfate (MoRPHine SULFATE INJ) 4 mg Q15M PRN IV 03/16/17 21:45 03/30/17 21:44 Lorazepam 1 mg/ Syringe 1 ml @ 1 mls/min Q15M PRN IV 03/16/17 21:45 04/15/17 21:44 Furosemide (Lasix Tab) 40 mg BID PRN PO 03/17/17 15:30 04/16/17 15:29 Trazodone HCl (Desyrel Tab) 50 mg HS PRN PO 03/17/17 15:30 04/16/17 15:29 Amlodipine Besylate (Norvasc Tab) 5 mg QAM PO 03/18/17 08:00 04/17/17 07:59 Budesonide/ Formoterol Fumarate (Symbicort 80/ 4.5 Inh) 2 puffs BID INH 03/17/17 20:00 04/16/17 19:59 Pantoprazole Sodium (Protonix Tab) 40 mg QAM PO 03/18/17 08:00 04/17/17 07:59
[2017-03-17] MEDS: BUDESONIDE/FORMOTEROL FUMARATE 80/4.5 60 PUFFS/INHALER INH SCH (20:56)
[2017-03-17] MEDS ORDERED: NURSING DECISION MEDICATION ORDER SCH (21:00)
[2017-03-17] MEDS ORDERED: MICONAZOLE NITRATE POWDER 43 GM EXT PRN (21:00)
[2017-03-17 21:16] VITALS: PULSE 57; O2SAT 90
[2017-03-18] MEDS: MoRPHine SULFATE 4 MG/ML 1 ML CARP\\VIAL IV PRN ×2 (03:29→08:04)
[2017-03-18 04:11] VITALS: PULSE 62; O2SAT 97
[2017-03-18] MEDS: AMLODIPINE BESYLATE 5 MG TAB PO SCH ×2 (08:00→08:17)
[2017-03-18] MEDS: PANTOprazole SOD 40 MG TAB PO SCH ×2 (08:00→08:17)
[2017-03-18] MEDS: BUDESONIDE/FORMOTEROL FUMARATE 80/4.5 60 PUFFS/INHALER INH SCH (08:11)
[2017-03-18 08:12] VITALS: BP 140/56; PULSE 48; O2SAT 94
[2017-03-18 15:01] VITALS: BP 127/55; PULSE 49; TEMP 36.4; O2SAT 97
--- NOTE | 2017-03-18 17:23 | Progress Note ---
Medicine Progress Note Date & Time of Visit: Mar 18, 2017 at 17:06. Subjective Pt was seen and examined lying in bed with no acute distress Pt said that she is ready to go home today Hospice nurse talked to and patient today They agreed with home hospice Pt said does not want any HD She wants to continue to take her lasix because it helps her with her breathing She will continue to use the bipap at home Denies any chest pain, palpitation, dizziness and fever Objective Last 8 Hrs Date Time Temp Pulse Resp B/P (MAP) Pulse Ox O2 Delivery O2 Flow Rate FiO2 03/18/17 16:00 Nasal Cannula 6.0 03/18/17 15:01 36.4 49 20 127/55 (79) 97 Nasal Cannula 3.0 Physical Exam: General- No acute distress Head- atraumatic Eyes- PERRL, EOMI ENT- oropharynx clear Neck- supple, no JVD Lungs- decrease BS Heart- regular rhythm Abdomen- normal bowel sounds Extremities- no calf tenderness, b/l wound in LE, no drainage, dry with brown scab Neuro- alert, oriented, PERRL, EOMI; no facial palsy Skin- warm & dry Assessment & Plan Acute on chronic hypoxemic hypercapnic respiratory failure. Possible related to COPD exacerbation vs CHF CXR showed Cardiomegaly with mild pulmonary vascular congestion Continue lasix it helps with the breathing Duoneb treatment oxygen supplement BIPAP at night Was made comfort measure and home hospice palliative care on board Hospice nurse met with patient and to discuss about home hospice Diastolic CHF Continue lasix Continue monitor closely CKD Stage 4 - Creatine 2.1 back in December - Creatine 3.8 on admission - Lasix was on hold but pt and would like to resume since it helps pt breathing - Refusing Dialysis - Was made comfort measure B/L LE wound mostly due to venous insuff Does not look infected will check in am and if getting worst will start on PO abx Wound care on board HTN- On Hydralazine to 50mg BID, Amlodipine 5 mg started stable Anemia Due to CKD hbg 8.1 No lab done today since pt was made comfort measure Morbid Obesity Counseling about weight loss and diet Depression Continue Celexa CODE STATUS DNR Disposition Will discharge home today for home hospice Consultants: Palliative care Wound care Current Inpatient Medications: Current Inpatient Medications Medications (Trade) Dose Ordered Sig/Pieter Route Start Time Stop Time Status Last Admin Dose Admin Acetaminophen (Tylenol Tab) 650 mg Q4H PRN PO 03/16/17 21:45 04/15/17 21:44 Albuterol/ Ipratropium (Duoneb) 3 ml Q2H PRN INH 03/16/17 21:45 04/15/17 21:44 Morphine Sulfate (MoRPHine SULFATE INJ) 4 mg Q15M PRN IV 03/16/17 21:45 03/30/17 21:44 03/18/17 08:04 4 MG Lorazepam 1 mg/ Syringe 1 ml @ 1 mls/min Q15M PRN IV 03/16/17 21:45 04/15/17 21:44 Furosemide (Lasix Tab) 40 mg BID PRN PO 03/17/17 15:30 04/16/17 15:29 Trazodone HCl (Desyrel Tab) 50 mg HS PRN PO 03/17/17 15:30 04/16/17 15:29 Amlodipine Besylate (Norvasc Tab) 5 mg QAM PO 03/18/17 08:00 04/17/17 07:59 Budesonide/ Formoterol Fumarate (Symbicort 80/ 4.5 Inh) 2 puffs BID INH 03/17/17 20:00 04/16/17 19:59 03/18/17 08:11 2 PUFFS Pantoprazole Sodium (Protonix Tab) 40 mg QAM PO 03/18/17 08:00 04/17/17 07:59 Miconazole Nitrate (Desenex Powder) 1 appln PRN PRN EXT 03/17/17 21:00 04/16/17 20:59
--- NOTE | 2017-03-18 17:34 | Discharge Instructions ---
Discharge Instructions Date of Service Mar 18, 2017. Admission Reason for Admission: Acute Respiratory Failure, Palliative Care Encount Discharge Discharge Diagnosis / Problem: Acute on chronic hypoxic hypercapnic respiratory failure, CKD stage 4 Discharge Goals Goal(s): Decrease discomfort, Improve function, Improve disease control Activity Recommendations Activity Limitations: resume your previous activity (as tolerated) . Instructions / Follow-Up Instructions / Follow-Up Discharge home with hospice Comfort measure Continue BiPap at night Continue Oxygen supplement Fall precaution Aspiration precaution Current Hospital Diet Patient's current hospital diet: Regular Diet Discharge Diet Recommended Diet: Low Sodium Diet (2gm Na), Renal Diet Pending Studies Studies pending at discharge: no Laboratory Results Lipid Panel Test 12/29/16 05:37 Range/Units Triglycerides Level 105 0-150 mg/dl Cholesterol Level 190 0-200 mg/dl HDL Cholesterol 66 mg/dl Cholesterol/HDL Ratio 2.9 LDL Cholesterol, Calculated 103 mg/dl Medical Emergencies . Who to Call and When: Medical Emergencies: If at any time you feel your situation is an emergency, please call 911 immediately. . Non-Emergent Contact Non-Emergency issues call your: Primary Care Provider Call Non-Emergent contact if: you have any medication questions . . "Provider Documentation" section prepared by Johanne Edwards. . VTE Core Measure Inpt VTE Proph given/why not?: Contraindicated (low hgb)
[2017-03-18 17:45] VITALS: BP 127/55; PULSE 49; TEMP 36.4; O2SAT 97
--- NOTE | 2017-03-21 16:27 | Discharge Summary ---
Discharge Summary Date of Service Mar 21, 2017. Discharge Summary Admission Date: Mar 16, 2017 at 20:50 Discharge Date: Mar 18, 2017 Discharge Disposition: Home (With Hospice) Principal Diagnosis: Acute on chronic hypoxic hypercapnic respiratory failure Secondary Diagnoses/Problems: Diastolic CHF' CKD stage 4 HTN B/L LE wound Anemia Morbid obesity depression Procedures: SINGLE VIEW CHEST CLINICAL HISTORY: Dyspnea. FINDINGS: An AP, portable, upright chest radiograph is compared to study dated 03/16/2017 and 07/23/2014. The examination is degraded by portable technique, apical lordotic positioning, and patient rotation. The heart is enlarged. Mild pulmonary vascular congestion is observed. Enlargement the central pulmonary arteries is similar to previous and suggests pulmonary artery hypertension. There is bibasilar atelectasis. Trace pleural effusions are suspected. No pneumothorax is seen. The skeletal structures are osteopenic. The bony thorax is grossly intact. IMPRESSION: 1. Cardiomegaly with mild pulmonary vascular congestion. Cortical clinically for evidence of mild congestive failure. 2. Suspect trace pleural effusions. Electronically signed by: Jaden Espinoza M.D. 03/16/2017 5:10 PM Consultations: Palliative care Wound care Medication Reconciliation Continued Medications: Amlodipine (Norvasc) 5 Mg Tab 5 MG PO QAM, TAB Budesonide/Formoterol Fumarate (Symbicort 80/4.5 Inhaler) Aero 2 PUFFS INH BID, INHALER Citalopram Hydrobromide (Celexa) 20 Mg Tab 20 MG PO DAILY, TAB Ferrous Sulfate (Iron) 325 Mg Tab 325 MG PO DAILY Furosemide (Lasix) 40 Mg Tab 40 MG PO BID PRN for Fluid Retention, TAB Home O2 Therapy (Oxygen) Gas 3 LITERS NA CONTINOUS, BTL Hydralazine Hcl (Apresoline) 50 Mg Tab 50 MG PO BID, TAB Ipratropium-Albuterol (Duoneb) 3 Ml Nebu 1 TREATMENT NEB Q4H PRN for SOB/Wheezing, INHA Omeprazole (Prilosec) 20 Mg Capcr 20 MG PO DAILY, CAP TAKE THIS MEDICATION ONCE DAILY 30 TO 60 MINUTES BEFORE FIRST MEAL OF THE DAY Trazodone Hcl (Trazodone) 50 Mg Tab 50 MG PO HS PRN for Sleep, TAB Discontinued Medications: Cholecalciferol (Vitamin D3) 5,000 Unit Chw 5000 INTER.UNIT PO QAM Cyanocobalamin (Vitamin B12) 1,000 Mcg Tab 1000 MCG PO DAILY Isosorbide Mononitrate (Isosorbide Mononitrate ER) 30 Mg Tabcr 30 MG PO DAILY Multivitamin (Multivitamin) Tab 1 TAB PO DAILY, TAB Admission Information HPI (per Admitting provider): PRIMARY CARE DOCTOR: Dr. Ward. CHIEF COMPLAINT: Weakness, shortness of breath. HISTORY OF PRESENT ILLNESS: Medical history significant for chronic respiratory failure secondary to COPD on home O2 and BiPAP at night, past tobacco abuse, hypertension, chronic diastolic heart failure, EF of 70% from 2D echo of December 2016, moderate aortic stenosis, chronic renal insufficiency (baseline creatinine of 2.6), chronic anemia (baseline hemoglobin 8-9). Recent confinement December 2016 acute on chronic hypercapnic respiratory failure secondary to COPD exacerbation. Patient also had ARF on CKD during confinement. Refused dialysis. From recent PCP visit 01/21/2017, the patient's diagnoses and prognosis of chronic diseases discussed with patient. Detailed discussion contemplated for next office visit as per records. Sometime last January 2017, patient having shortness of breath on exertion. Refused to be seen at the Emergency Room. Given some diuretics at home. Last few days, increasing shortness especially on exertion and weakness. She was trying to get to her wheelchair when she slipped and fell on her buttocks. No chest pain. No unusual cough symptoms. No confusion as per . Weight is just a about the same as per patient. At the emergency room, patient noted to be soiled and incontinent of stool. Physical Exam (per Admitting): VITAL SIGNS: Blood pressure was noted to be 159/60, pulse rate 61, RR was noted to be 22. T 37 sats 98RA GENERAL: Noted to be oriented, obese, minimal resp distress. SKIN: Pallor. HEENT: Pale palpebral conjunctivae. Dry mucosa. Nasal cannula noted NECK: Short neck. LUNGS: Decreased breath sounds. HEART: Systolic murmur. ABDOMEN: Some distention, tender. EXTREMITIES: Minimal leg swelling, no tenderness. NEUROLOGIC: No gross focality. Hospital Course Acute on chronic hypoxemic hypercapnic respiratory failure. Possible related to COPD exacerbation vs CHF CXR showed Cardiomegaly with mild pulmonary vascular congestion Continue lasix Duoneb treatment oxygen supplement CPAP at night Pt wants to be comfort measure wants home med to be continue palliative care on board Diastolic CHF Continue lasix Continue monitor closely CKD Stage 4 - Creatine 2.1 back in December - Creatine 3.8 on admission - Lasix was on hold but pt and would like to resume since it helps pt breathing - Refusing Dialysis - Was made comfort measure B/L LE wound mostly due to venous insuff will check in am and if getting worst will start on PO abx Wound care consulted HTN- On Hydralazine to 50mg BID Amlodipine 5 mg started stable Anemia Due to CKD hbg 8.1 No lab done today since pt was made comfort measure Morbid Obesity Counseling about weight loss and diet Depression Continue Celexa CODE STATUS DNR Total time spent on discharge = 35 minutes This includes examination of the patient, discharge planning, medication reconciliation, and communication with other providers. Discharge Instructions Admission Reason for Admission: Acute Respiratory Failure, Palliative Care Encount Discharge Discharge Diagnosis / Problem: Acute on chronic hypoxic hypercapnic respiratory failure, CKD stage 4 Discharge Goals Goal(s): Decrease discomfort, Improve function, Improve disease control Activity Recommendations Activity Limitations: resume your previous activity (as tolerated) . Instructions / Follow-Up Instructions / Follow-Up Discharge home with hospice Comfort measure Continue BiPap at night Continue Oxygen supplement Fall precaution Aspiration precaution Current Hospital Diet Patient's current hospital diet: Regular Diet Discharge Diet Recommended Diet: Low Sodium Diet (2gm Na), Renal Diet Pending Studies Studies pending at discharge: no Laboratory Results Lipid Panel Test 12/29/16 05:37 Range/Units Triglycerides Level 105 0-150 mg/dl Cholesterol Level 190 0-200 mg/dl HDL Cholesterol 66 mg/dl Cholesterol/HDL Ratio 2.9 LDL Cholesterol, Calculated 103 mg/dl Medical Emergencies . Who to Call and When: Medical Emergencies: If at any time you feel your situation is an emergency, please call 911 immediately. . Non-Emergent Contact Non-Emergency issues call your: Primary Care Provider Call Non-Emergent contact if: you have any medication questions . . "Provider Documentation" section prepared by Johanne Edwards. . VTE Core Measure Inpt VTE Proph given/why not?: Contraindicated (low hgb) Additional Copies To Christine Ward M.D.
== END 2017-03-18 18:41 | disposition hospice, home (50) | DRG 291 ==
LOC: EDBD 16:36 → C.EDB 16:38 → C.4E 20:50 → ENRESERV 22:02
PROVIDERS: ADMIT Internal Medicine; ATTEND Internal Medicine
DX: I13.0 Hypertensive heart and chronic kidney disease with heart failure and stage 1 through stage 4 chronic kidney disease, or unspecified chronic kidney disease (principal); I50.32 Chronic diastolic (congestive) heart failure; J96.21 Acute and chronic respiratory failure with hypoxia; Z51.5 Encounter for palliative care; N18.4 Chronic kidney disease, stage 4 (severe); N17.9 Acute kidney failure, unspecified; J96.22 Acute and chronic respiratory failure with hypercapnia; Z68.42 Body mass index [BMI] 45.0-49.9, adult; J44.1 Chronic obstructive pulmonary disease with (acute) exacerbation; I35.0 Nonrheumatic aortic (valve) stenosis; E66.01 Morbid (severe) obesity due to excess calories; F41.8 Other specified anxiety disorders; K21.9 Gastro-esophageal reflux disease without esophagitis; E03.9 Hypothyroidism, unspecified; Z87.891 Personal history of nicotine dependence; Z99.81 Dependence on supplemental oxygen; Z88.0 Allergy status to penicillin; D64.9 Anemia, unspecified; Z91.040 Latex allergy status